=== PATIENT | female | born 1940 | race Caucasian/White ===

== ENCOUNTER 2021-04-30 11:18 | Emergency (ER) | payer MEDICARE, SELFPAY ==
[2021-04-30 11:25] VITALS: BP 195/84; PULSE 64; RESP 18; TEMP 36.9; O2SAT 98; BMI 30.2
--- NOTE | 2021-04-30 12:09 | ECG_ITS ---
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 Measurements Intervals [place] Rate: 61 P: 6 CT: 156 QRS: 23 QRSD: 87 T: 28 QT: 398 QTc: 402 Interpretive Statements SINUS RHYTHM Poor R wave progression Compared to ECG 09/30/2017 09:28:50 Sinus bradycardia no longer present ST (T wave) deviation no longer present Electronically Signed On 05-01-2021 23:47:46 CDT by Shannan Colin M.D. [id number]
--- NOTE | 2021-04-30 12:10 | ED_ITS ---
HPI - General Adult General: Chief complaint: General Medical Stated complaint: HIGH B/P Time Seen by Provider: 04/30/21 11:50 Source: patient and family (son) Mode of arrival: ambulatory Limitations: altered mental status (chronic dementia) History of Present Illness: HPI narrative: Patient is a nice 80-year-old female who presents to ED today along with her son for complaints of elevated blood pressure. Son states yesterday evening after feeding cows the patient appeared flushed so took her blood pressure and states it read 190s systolic. He states he rechecked it this morning and readings were 180s. Patient states last night she did have a headache and some visual changes. She reports a very mild headache currently. States she feels fatigued. Denies chest pain, shortness of breath, difficulty breathing. She takes lisinopril 20 mg daily for HTN. Son also states he feels like her legs are swollen. Onset (ago): hour(s) Associated symptoms: Reports headache(s); Deny chest pain, dyspnea, malaise, nausea, rash, palpitations, syncope or vomiting Review of Systems Const: Reports: fatigue; Denies: fever(s), chills, body aches, change in appetite, change in weight or malaise Eyes: Reports: blurry vision (yesterday-gone now); Denies: photophobia, eye discharge, floaters or seeing flashes Card: Denies: chest pain, palpitations, irregular heart rhythm, edema, lightheadedness, syncope or pre-syncope Resp: Denies: dyspnea GI: Denies: abdominal pain, nausea, vomiting or diarrhea Musc: Denies: neck pain or back pain Skin/Breast: Denies: rash Neuro: Reports: headache(s); Denies: numbness in extremities, weakness in extremities or sensory changes Physical Exam Const: COMMON NORMALS: no acute distress, average body habitus, no limitations, healthy appearing, alert and well nourished GENERAL APPEARANCE: cooperative ORIENTATION/CONSCIOUSNESS: Yes awake, Yes oriented to person and Yes oriented to place OTHER: at mental baseline per son HENMT: COMMON NORMALS: normocephalic and atraumatic HEAD & SCALP: normocephalic and atraumatic Eye: COMMON NORMALS: Equal, round and reactive pupils present and EOMs intact bilaterally GENERAL EYE: appearance normal, both eyes and all related structures and normal light reflex PUPIL: Yes Equal, round and reactive pupils present DIRECT OPHTHALMOSCOPY: Yes normal light reflex Neck/C-Spine: COMMON NORMALS: full ROM CAROTIDS: No bruit Resp: COMMON NORMALS: normal respiratory effort and clear to auscultation bilaterally AUSCULTATION: clear to auscultation bilaterally Cardio: COMMON NORMALS: regular rate and regular rhythm RATE: regular rate RHYTHM: regular rhythm GI: COMMON NORMALS: Normal to inspection, nondistended, normoactive bowel sounds present, Soft to palpation, non-tender, No hepatosplenomegaly present and no masses PALPATION: Yes Soft to palpation and Yes No hepatosplenomegaly present Extremity: COMMON NORMALS: capillary refill normal, no joint enlargement and no calf tenderness NARRATIVE EXTREMITY EXAM: slight bilateral non-pitting LE edema GENERAL: Yes normal exam except as noted Neuro: GERBER COMA SCALE: document GCS findings Gerber coma scale eye opening: Spontaneous [place] coma scale verbal response: Orientated Gerber coma scale motor response: Obey commands Gerber coma scale total score: 15 COMMON NORMALS: CN's II-XII intact bilaterally, moves all extremities, no focal motor deficits and no sensory deficits noted SENSORIUM/ORIENTATION: Yes alert, Yes oriented to person and Yes oriented to place Skin: COMMON NORMALS: no rashes or lesions noted GENERAL SKIN EXAM: no rashes or lesions noted Course Vital Signs: Vital signs: Vital Signs Temperature 98.5 F 04/30/21 11:25 Pulse Rate 60 04/30/21 12:32 Respiratory Rate 18 04/30/21 12:32 Blood Pressure 175/79 04/30/21 13:32 Pulse Oximetry 100 04/30/21 12:32 MDM - General Adult MDM Narrative: Medical decision making narrative: Patient's work-up here including CBC, CMP, BNP troponin, EKG, CT head is reassuring. Will increase patient's lisinopril to 30 mg and recommend blood pressure log at home to discuss with primary care provider within the next week. Return to ED precautions given. Lab Data: Labs: Lab Results 04/30/21 04/30/21 04/30/21 Range/Units 12:38 12:38 12:38 WBC 7.7 (4.0-10.0) 10^3/ uL RBC 4.13 (4.1-5.3) 10^6/u L Hgb 13.7 (11.5-15.3) g/dL Hct 40.5 (37.0-47.0) % MCV 98.1 (81-99) fl MCH 33.2 (28.0-34.0) pg MCHC 33.8 (30.0-36.0) g/dL RDW 12.0 L (12.1-15.1) % Plt Count 243 (130-400) 10^3/c mm MPV 9.8 (7.4-10.4) fL Neut % (Auto) 57.4 % Lymph % (Auto) 27.3 % Benzie % (Auto) 10.4 % Eos % (Auto) 3.8 % Baso % (Auto) 0.8 % Neut # (Auto) 4.43 (1.8-7.7) 10^3/u L Lymph # (Auto) 2.1 (0.8-4.8) 10^3/u L Benzie # (Auto) 0.8 (0.2-0.9) 10^3/u L Eos # (Auto) 0.3 (0.0-0.8) 10^3/u L Baso # (Auto) 0.1 (0.0-0.1) 10^3/u L Nucleated RBC % (a uto) 0 % Nucleated RBCs # 0.0 /100WBC Sodium 140 (136-145) mmol/L Potassium 4.8 (3.5-5.1) mmol/L Chloride 106 (98-107) mmol/L Carbon Dioxide 28 (22-29) mmol/L Anion Gap 10.8 (5-19) BUN 17 (8-23) mg/dL Creatinine 0.8 (0.5-0.9) mg/dL GFR Calculation Not Reportable Glucose 88 (65-115) mg/dL Calculated Osmolal ity 291 (285-295) mOsm/k g Calcium 9.4 (8.5-10.5) mg/dL Total Bilirubin 0.3 (0.15-1.2) mg/dL AST 16 (0-32) U/L ALT 16 (0-33) U/L Alkaline Phosphata se 85 (35-105) IU/L Troponin T Baselin e 9 (0-10) ng/L NT-Pro-B Natriuret Pep 180 (0-450) pg/mL Total Protein 6.2 L (6.6-8.7) g/dL Albumin 3.8 (3.5-5.2) g/dL Globulin 2.4 (1.3-4.6) g/dL Imaging Data^: CT Head: Radiologist's impression: [address] [place] [address] CT Scan Report Signed Patient: Joanna Wilson Unit #: [id number] : 1940 Age/Sex: 80 / F ADM Date: 04/30/21 Loc: ER Room/Bed: Attending Dr: Ordering Provider/Ordering MD: Sherlyn Anders Date of Service: 04/30/21 Procedure(s): CT head wo con* [id number] Accession Number(s): [id number] Report Number: [id number] PROCEDURE INFORMATION: Exam: CT Head Without Contrast Exam date and time: 04/30/2021 12:09 PM Age: 80 years old Clinical indication: Pain; Headache; Additional info: Headache, HTN TECHNIQUE: Imaging protocol: Computed tomography of the head without contrast. Radiation optimization: All CT scans at this facility use at least one of these dose optimization techniques: automated exposure control; mA and/or kV adjustment per patient size (includes targeted exams where dose is matched to clinical indication); or iterative reconstruction. COMPARISON: No relevant prior studies available. RADIATION DOSE METRICS: Total DLP (mGy-cm): 834.2 FINDINGS: Brain: There is diffuse cerebral atrophy present, consistent with this patient's age. Periventricular and subcortical white matter low densities are present which at this age likely represent microvascular ischemic change. No evidence for large acute ischemic infarction. Please note acute ischemia can be occult by head CT. Cerebral ventricles: No ventriculomegaly. Paranasal sinuses: Visualized sinuses are unremarkable. No fluid levels. Mastoid air cells: Visualized mastoid air cells are well aerated. Vasculature: Calcified plaque is present within the carotid siphons. Bones/joints: Unremarkable. No acute fracture. Soft tissues: Unremarkable. CT/CT head wo con* [id number] IMPRESSION: There are senescent changes of the brain as described above. No evidence for large acute ischemic infarction or acute intracranial injury. Radiation Dose CTDIVOL = (mGy): DLP = 834.2 (mGy-cm) Dictated By: Sabrina Wesley MD Signed By: Sabrina Wesley MD Signed Date/Time: 04/30/21 1331 DD/ 1329 EKG Data^: EKG 1: EKG interpretation date: 04/30/21 EKG interpretation time: 12:47 Interpretation: Sinus rhythm Rate [address] elevation or depression changes noted Computer generated interpretation: Head CT 04/30/21 12:09 IMPRESSION: There are senescent changes of the brain as described above. No evidence for large acute ischemic infarction or acute intracranial injury. Radiation Dose CTDIVOL = (mGy): DLP = 834.2 (mGy-cm) Discharge Plan Discharge Patient Disposition: Home Clinical Impression: HTN (hypertension) Qualifiers: Hypertension type: essential hypertension Qualified Code(s): I10 - Essential (primary) hypertension Condition: Stable Prescriptions: New lisinopril 30 mg tablet 30 mg PO DAILY Qty: 30 RF: 0 Discharge Orders: Discharge ED (Routine); Ordered 04/30/21 Ordered By: Sherlyn Anders Referrals: Twan Clark MD [Primary Care Provider] - Patient Instructions: Hypertension, Hypertension (ED) Activity Restrictions/Additional Instructions: As we discussed we will increase patient's blood pressure medication to 30 mg daily (this prescription has been provided to you). Do not take this along with the 20 mg tablets that you have. Keep a blood pressure log of readings twice daily and discuss with primary care in the next 1-2 weeks. She may return to the emergency department for severe headache, visual changes, chest pain, shortness of breath, difficulty breathing, or any other concerns you may have. Coding Level of Care Code ED Podiatrist Orthopedic for Jennifer Walton
[2021-04-30 12:32] VITALS: BP 205/83; PULSE 60; RESP 18; O2SAT 100
[2021-04-30 12:54] LABS: Basophils # 0.1 10^3/uL (0.0-0.1); Basophils % 0.8 %; Eosinophils # 0.3 10^3/uL (0.0-0.8); Eosinophils % 3.8 %; Hematocrit 40.5 % (37.0-47.0); Hemoglobin 13.7 g/dL (11.5-15.3); Lymphocytes # 2.1 10^3/uL (0.8-4.8); Lymphocytes % 27.3 %; Mean Corpuscular HGB Conc 33.8 g/dL (30.0-36.0); Mean Corpuscular Hemoglobin 33.2 pg (28.0-34.0); Mean Corpuscular Volume 98.1 fl (81-99); Mean Platelet Volume 9.8 fL (7.4-10.4); Monocytes # 0.8 10^3/uL (0.2-0.9); Monocytes % 10.4 %; Neutrophils # 4.43 10^3/uL (1.8-7.7); Neutrophils % 57.4 %; Nucleated Red Blood Cells % 0 %; Platelet Count 243 10^3/cmm (130-400); Red Blood Count 4.13 10^6/uL (4.1-5.3); White Blood Count 7.7 10^3/uL (4.0-10.0)
[2021-04-30 13:00] VITALS: BP 201/88; PULSE 63; RESP 18; O2SAT 100
[2021-04-30 13:16] LABS: Troponin(5th) Baseline 9 ng/L (0-10)
[2021-04-30 13:24] LABS: Alanine Aminotransferase 16 U/L (0-33); Albumin Level 3.8 g/dL (3.5-5.2); Alkaline Phosphatase 85 IU/L (35-105); Anion Gap 10.8 (5-19); Aspartate Amino Transferase 16 U/L (0-32); Blood Urea Nitrogen 17 mg/dL (8-23); Calcium 9.4 mg/dL (8.5-10.5); Carbon Dioxide 28 mmol/L (22-29); Chloride 106 mmol/L (98-107); Globulin 2.4 g/dL (1.3-4.6); Glucose 88 mg/dL (65-115); NT Pro B Type Natriuretic Pept 180 pg/mL (0-450); Osmolality Calculated 291 mOsm/kg (285-295); Potassium 4.8 mmol/L (3.5-5.1); Sodium 140 mmol/L (136-145); Total Bilirubin 0.3 mg/dL (0.15-1.2); Total Protein 6.2 g/dL (6.6-8.7)
[2021-04-30 13:32] VITALS: BP 175/79
[2021-04-30] MEDS: cloNIDine 0.1 mg Tablet PO (13:32)
[2021-04-30 14:00] VITALS: BP 166/89; PULSE 59; RESP 19; O2SAT 99
== END 2021-04-30 14:35 | disposition home or self-care (01) ==
PROVIDERS: Emergency Provider Physician Assistant; PCP Family Medicine
DX: I10 Essential (primary) hypertension (principal)
CPT/HCPCS: 70450; 80053; 83880; 84484; 85025; 93005; 99284

== ENCOUNTER 2021-12-02 18:21 | Emergency (ER) | payer MEDICARE, SELFPAY ==
[2021-12-02 18:32] VITALS: BP 198/86; PULSE 70; RESP 18; TEMP 36.3; O2SAT 99; BMI 30.9
--- NOTE | 2021-12-02 18:45 | CTR_ITS ---
PROCEDURE INFORMATION: Exam: CT Cervical Spine Without Contrast Exam date and time: 12/02/2021 6:58 PM Age: 81 years old Clinical indication: Injury or trauma; Fall; Blunt trauma TECHNIQUE: Imaging protocol: Computed tomography images of the cervical spine without contrast. Radiation optimization: All CT scans at this facility use at least one of these dose optimization techniques: automated exposure control; mA and/or kV adjustment per patient size (includes targeted exams where dose is matched to clinical indication); or iterative reconstruction. COMPARISON: CT head wo con* [id number] 12/02/2021 6:56 PM RADIATION DOSE METRICS: Total DLP (mGy-cm): 561.74 FINDINGS: Bones/joints: No acute fracture. No malalignment. Discs/Spinal canal/Neural foramina: No significant disc protrusion. No severe spinal canal stenosis. No significant neural foraminal narrowing. Thyroid: 2.3 cm right thyroid nodule. Lungs: Lung apices are normal. Soft tissues: Unremarkable. CT/CT cervical spin wo con* [id number] IMPRESSION: 1. No acute osseous abnormality of the cervical spine. 2. 2.3 cm right thyroid nodule noted. ACR recommendations given below. COMMENTS: Consistent with the [employer]'s Incidental Findings Committee white paper (J Am Jolly Radiol 2015): In patients aged 35 years and older with an incidental thyroid nodule equal to or greater than 1.[address], MRI or extrathyroidal US, further evaluation with dedicated thyroid US is recommended for patients with normal life expectancy and without comorbidities. For smaller nodules without suspicious features, no further evaluation or follow up is recommended.
--- NOTE | 2021-12-02 18:45 | CTR_ITS ---
PROCEDURE INFORMATION: Exam: CT Head Without Contrast Exam date and time: 12/02/2021 6:56 PM Age: 81 years old Clinical indication: Injury or trauma; Fall; Blunt trauma (contusions or hematomas); Without loss of consciousness; Additional info: Fall, lac to back of head. TECHNIQUE: Imaging protocol: Computed tomography of the head without contrast. Radiation optimization: All CT scans at this facility use at least one of these dose optimization techniques: automated exposure control; mA and/or kV adjustment per patient size (includes targeted exams where dose is matched to clinical indication); or iterative reconstruction. COMPARISON: CT head wo con* [id number] 04/30/2021 12:58 PM RADIATION DOSE METRICS: Total DLP (mGy-cm): 958.32 FINDINGS: Brain: No hemorrhage. Mild diffuse cerebral atrophy and sequela of chronic small vessel ischemic disease. No mass effect. Cerebral ventricles: No ventriculomegaly. Paranasal sinuses: Visualized sinuses are unremarkable. No fluid levels. Mastoid air cells: Visualized mastoid air cells are well aerated. Bones/joints: Unremarkable. No acute fracture. Soft tissues: Laceration along the left posterior scalp. CT/CT head wo con* [id number] IMPRESSION: No acute intracranial abnormality.
--- NOTE | 2021-12-02 18:52 | ED_ITS ---
HPI - Fall General: Chief Complaint: Fall Stated Complaint: Injury Head Time Seen by Provider: 12/02/21 18:31 Source: patient Mode of arrival: ambulatory Limitations: no limitations History of Present Illness: 81-year-old female states that she is walking upstairs roughly an hour ago from her basement and was wearing flip-flops and slipped and fell backwards she hit her head on the floor has a small laceration to the posterior scalp. She denies loss conscious states she does have a headache and some slight neck pain denies any other injuries has been ambulatory since the event. She is on aspirin at home. Associated symptoms-after fall: Reports headache(s) and neck pain; Denies abdominal pain or chest pain Review of Systems Const: Denies: fever(s), chills, body aches or change in appetite Eyes: Denies: blurry vision or eye discomfort ENMT: Denies: throat pain or dental pain Card: Denies: chest pain Resp: Denies: dyspnea GI: Denies: abdominal pain, nausea, vomiting or diarrhea : Denies: dysuria Musc: Reports: neck pain Skin/Breast: Denies: rash Neuro: Reports: headache(s) Psych: Denies: depression Roman/Lymph: Denies: easy bruising All/Imm: Denies: urticaria PFSH ED PFSH: Medical History (Updated 12/02/21 @ 19:25 by Edy Melgar MD) Hypertension Social History Substance/Drug Use: never Physical Exam Const: COMMON NORMALS: no acute distress, patient oriented x3 and healthy morena earing HENMT: COMMON NORMALS: normocephalic; head/scalp not atraumatic (1cm lac posterior scalp) HEAD & SCALP: normoce phalic; not atraumatic (1cm lac posterior scalp) Eye: COMMON NORMALS: Equal, round and reactive pupils present and EOMs intact bilaterally PUPIL: Yes Equal, round and reactive pupils present Neck/C-Spine: COMMON NORMALS: full ROM and supple Chest: COMMONS NORMALS: normal inspection of the chest and normal palpation of entire chest wall Resp: COMMON NORMALS: normal respiratory effort, No retractions, No use of accessory muscles and clear to auscultation bilaterally AUSCULTATION: clear to auscultation bilaterally Cardio: COMMON NORMALS: regular rate, regular rhythm and No murmurs present (Cardio) RATE: regular rate RHYTHM: regular rhythm GI: COMMON NORMALS: Normal to inspection, nondistended, normoactive bowel sounds present, Soft to palpation, non-tender and no masses PALPATION: Yes Soft to palpation Extremity: COMMON NORMALS: normal to inspection and full ROM Neuro: COMMON NORMALS: patient oriented x3, moves all extremities and no focal motor deficits Psych: COMMON NORMALS: mental status grossly normal, Normal thought process present and cooperative THOUGHT PROCESS: Normal thought process present Skin: COMMON NORMALS: no rashes or lesions noted and no wounds GENERAL SKIN EXAM: no rashes or lesions noted Procedures Laceration Laceration 1: Site: scalp Size (cm): 1 Description: linear Depth: simple, single layer Local Anesthetic: lidocaine 1% Amount of anesthesia used (mL): 3 Pre-repair: wound explored and irrigated extensively Skin layer closed with: other (staple 1) Course Vital Signs: Vital signs: Vital Signs Temperature 97.4 F L 12/02/21 18:32 Pulse Rate 70 12/02/21 18:32 Respiratory Rate 18 12/02/21 18:32 Blood Pressure 198/86 12/02/21 18:32 Pulse Oximetry 99 12/02/21 18:32 MDM - Fall Medical Decision Making Patient presents here with a posterior scalp laceration after a fall. Head CT along with C-spine CT here both normal. She is stable for discharge she did have. Scalp laceration repaired with robb she is to return in 7 days for removal she is to follow-up with PCP and return if worsening. Lab Data Radiology Impressions Cervical Spine CT 12/02/21 18:45 IMPRESSION: 1. No acute osseous abnormality of the cervical spine. 2. 2.3 cm right thyroid nodule noted. ACR recommendations given below. COMMENTS: Consistent with the [employer]'s Incidental Findings Committee white paper (J Am Jolly Radiol 2015): In patients aged 35 years and older with an incidental thyroid nodule equal to or greater than 1.[address], MRI or extrathyroidal US, further evaluation with dedicated thyroid US is recommended for patients with normal life expectancy and without comorbidities. For smaller nodules without suspicious features, no further evaluation or follow up is recommended. Head CT 12/02/21 18:45 IMPRESSION: No acute intracranial abnormality. Discharge Plan Discharge Patient Disposition: Home Clinical Impression: Laceration of head Qualifiers: Encounter type: initial encounter Location of open wound of head: scalp Foreign body presence: without foreign body Qualified Code(s): S01.01XA - Laceration without foreign body of scalp, initial encounter Fall Qualifiers: Encounter type: initial encounter Qualified Code(s): W19.XXXA - Unspecified fall, initial encounter Prescriptions: No Action lisinopril 30 mg tablet 30 mg PO DAILY Qty: 30 0RF Discharge Orders: Discharge ED (Routine); Ordered 12/02/21 Ordered By: Edy Melgar Referrals: Twan Clark MD [Primary Care Provider] - Discharge Diet: Advance as tolerated Discharge Activity: Resume usual activity Patient Instructions: Head Laceration (ED) Activity Restrictions/Additional Instructions: staple removal in 7 days Coding Level of Care Code ED Stationary Equipment Mechanic for Jennifer Fwgay Exam Comprehensive
[2021-12-02 19:00] VITALS: BP 166/121; PULSE 74; RESP 18; O2SAT 98
[2021-12-02 19:30] VITALS: BP 185/100; PULSE 73; RESP 20; O2SAT 98
[2021-12-02 20:04] VITALS: BP 198/85; PULSE 68; RESP 20; O2SAT 98
== END 2021-12-02 20:00 | disposition home or self-care (01) ==
PROVIDERS: Emergency Provider Emergency Medicine; PCP Family Medicine
DX: S01.01XA Laceration without foreign body of scalp, initial encounter (principal); I10 Essential (primary) hypertension; W01.0XXA Fall on same level from slipping, tripping and stumbling without subsequent striking against object, initial encounter
CPT/HCPCS: 12001; 70450; 72125; 99283

== ENCOUNTER → 2022-08-28 09:14 | Outpatient (BNVA) | payer MEDICARE, SELFPAY | PROVIDERS: PCP Family Medicine; Visit Provider Family Medicine | DX: F03.90 Unspecified dementia, unspecified severity, without behavioral disturbance, psychotic disturbance, mood disturbance, and anxiety (principal); I10 Essential (primary) hypertension | CPT/HCPCS: 80053; 80061; 82607; 84443 ==

== ENCOUNTER → 2022-11-30 11:40 | Outpatient (BNVA) | payer MEDICARE, SELFPAY | PROVIDERS: PCP Family Medicine; Visit Provider Family Medicine | DX: R60.9 Edema, unspecified (principal); I10 Essential (primary) hypertension; F03.90 Unspecified dementia, unspecified severity, without behavioral disturbance, psychotic disturbance, mood disturbance, and anxiety | CPT/HCPCS: 80048; 83880 ==

== ENCOUNTER 2023-02-26 08:57 | Emergency (ER) | payer MEDICARE, SELFPAY ==
[2023-02-26] VITALS (11 sets, daily range): BP systolic 157–205; BP diastolic 94–95; PULSE 68–87; RESP 15–20; TEMP 36.5; O2SAT 94–96
--- NOTE | 2023-02-26 09:00 | ED_ITS ---
HPI - Seizure General: Chief Complaint: Altered Mental Status Stated Complaint: poss seizures Time Seen by Provider: 02/26/23 08:58 Source: patient Mode of arrival: ambulatory History of Present Illness: HPI Narrative: 82-year-old female presents emergency room with her daughter. Patient has mild dementia and lives in assisted living she fell 1 week ago is a bruise on her right lower leg she hit her head at the time there is no reported loss consciousness she seemed unaffected so she was not evaluated. She is not on any anticoagulants she does take aspirin daily. Last 2 hours she has not been re sponding well she is fallen off of her normal baseline for mental status and interaction. She has had some shaking particularly in the right side no real clear seizure-like activity family is questioning she might have a seizure. There is no known history of seizures no previous cancers. Patient has had falls in the past and been evaluated in the emergency room. She has no history of heart disease she does have a history of hypertension. MD complaint: possible seizure Onset (ago): hour(s) (2) Trauma: Yes Seizure History: No Place: Assisted living Possible Precipitating Event: head injury Associated symptoms: Deny chest pain, chills, confusion, cough, fever(s), anorexia, malaise, rash, short of breath, syncope or weakness Treatments prior to arrival: none Review of Systems General: Reports: Other (Review of systems per daughter at the bedside) Const: Denies: fever(s), chills or malaise Card: Denies: chest pain or syncope Resp: Denies: dyspnea GI: Denies: abdominal pain : Denies: dysuria, urinary frequency or urinary urgency Neuro: Denies: confusion [facility] ED PFSH: Medical History Hypertension Family History Father Cancer Hyperlipidemia Hypertension Mother Dementia Diabetes Hyperlipidemia Hypertension Other CAD (coronary artery disease) Denies family history of Chronic kidney disease (CKD) Suicide Bleeding disorder Lung disease Stroke Social History Smoking and tobacco status: former smoker Alcohol intake: never Substance/Drug Use: never Adopted: No Household members: other Details: [facility] Housing: Assisted Living Facility Marital status: / Number of children: 3 Number of grandchildren: 9 Highest education level completed: High School Graduate Current occupational status: disabled Current gender identity: Female Physical Exam Const: GENERAL APPEARANCE: cooperative and comfortable ORIENTATION/CONSCIOUSNESS: Yes awake HENMT: COMMON NORMALS: normocephalic, atraumatic and hearing grossly normal bilaterally HEAD & SCALP: normocephalic and atraumatic Resp: COMMON NORMALS: normal respiratory effort, No retractions, No use of accessory muscles and clear to auscultation bilaterally AUSCULTATION: clear to auscultation bilaterally Cardio: COMMON NORMALS: regular rate, regular rhythm and No murmurs present (Cardio) RATE: regular rate RHYTHM: regular rhythm GI: COMMON NORMALS: Soft to palpation and No hepatosplenomegaly present AUSCULTATION: Yes normoactive bowel sounds PALPATION: Yes Soft to palpation, No Tenderness to palpation present (GI), No Guarding due to palpation present (GI) and Yes No hepatosplenomegaly present Extremity: COMMON NORMALS: capillary refill normal, no clubbing, cyanosis or edema, no calf tenderness and no pedal edema OTHER: Resolving ecchymosis appears at least 4 to 5 days old on the anterior tibia on the right no deformity no laceration Skin: COMMON NORMALS: no rashes or lesions noted GENERAL SKIN EXAM: no rashes or lesions noted Course Vital Signs: Vital signs: Vital Signs Temperature 97.7 F 02/26/23 09:08 Pulse Rate 69 02/26/23 11:41 Respiratory Rate 15 02/26/23 11:41 Blood Pressure 157/94 02/26/23 11:41 Pulse Oximetry 95 02/26/23 11:41 Oxygen Delivery Me thod Room Air 02/26/23 09:17 MDM - Seizure MDM Narrative Medical decision making narrative: No evidence of seizures. She does have a looks like is mild infiltrate at the right base. At the time work-up was completed she is sitting upright doing much better discussed with the family. No other findings are noted she has some mild hyponatremia but I do not think it is enough to cause a degree of symptoms she is having. We will discharge patient home on oral antibiotics have her follow- up with her primary care doctor within the week. Return if has further problems. Medical Records Attestation: I reviewed the patient's medical records. Lab Data Attestation: I reviewed the patient's lab results. 02/26/23 09:15 02/26/23 09:15 Labs: Radiology Impressions Head CT 02/26/23 09:20 IMPRESSION: 1. No acute intracranial hemorrhage or edema. 2. Mild cerebral and cerebellar atrophy and small vessel ischemic disease. Chest X-Ray 02/26/23 10:38 IMPRESSION: No acute cardiopulmonary abnormality. Laboratory Results WBC 9.0 10^3/uL (4.0-10.0) 02/26/23 09:15 RBC 4.33 10^6/uL (4.1-5.3) 02/26/23 09:15 Hgb 14.1 g/dL (11.5-15.3) 02/26/23 09:15 Hct 41.9 % (37.0-47.0) 02/26/23 09:15 MCV 96.8 fl (81-99) 02/26/23 09:15 MCH 32.6 pg (28.0-34.0) 02/26/23 09:15 MCHC 33.7 g/dL (30.0-36.0) 02/26/23 09:15 RDW 11.6 % (12.1-15.1) L 02/26/23 09:15 Plt Count 298 10^3/cmm (130-400) 02/26/23 09:15 MPV 8.4 fL (7.4-10.4) 02/26/23 09:15 Neut % (Auto) 68.9 % 02/26/23 09:15 Lymph % (Auto) 22.1 % 02/26/23 09:15 [place] % (Auto) 6.3 % 02/26/23 09:15 Eos % (Auto) 1.7 % 02/26/23 09:15 Baso % (Auto) 0.4 % 02/26/23 09:15 Neut # (Auto) 6.23 10^3/uL (1.8-7.7) 02/26/23 09:15 Lymph # (Auto) 2.0 10^3/uL (0.8-4.8) 02/26/23 09:15 [place] # (Auto) 0.6 10^3/uL (0.2-0.9) 02/26/23 09:15 Eos # (Auto) 0.2 10^3/uL (0.0-0.8) 02/26/23 09:15 Baso # (Auto) 0.0 10^3/uL (0.0-0.1) 02/26/23 09:15 Nucleated RBC % (auto) 0 % 02/26/23 09:15 Nucleated RBCs # 0.0 /100WBC 02/26/23 09:15 Sodium 129 mmol/L (136-145) L 02/26/23 09:15 Potassium 4.0 mmol/L (3.5-5.1) 02/26/23 09:15 Chloride 91 mmol/L (98-107) L 02/26/23 09:15 Carbon Dioxide 22 mmol/L (22-29) 02/26/23 09:15 Anion Gap 20.0 (5-19) H 02/26/23 09:15 BUN 13 mg/dL (8-23) 02/26/23 09:15 Creatinine 0.8 mg/dL (0.5-0.9) 02/26/23 09:15 GFR Calculation Not Reportable 02/26/23 09:15 Glucose 170 mg/dL (65-115) H 02/26/23 09:15 Calculated Osmolality 272 mOsm/kg (285-295) L 02/26/23 09:15 Calcium 9.7 mg/dL (8.5-10.5) 02/26/23 09:15 Magnesium 1.9 mg/dL (1.7-2.3) 02/26/23 09:15 Total Bilirubin 0.4 mg/dL (0.15-1.2) 02/26/23 09:15 AST 13 U/L (0-32) 02/26/23 09:15 ALT 18 U/L (0-33) 02/26/23 09:15 Alkaline Phosphatase 69 U/L (35-105) 02/26/23 09:15 Creatine Kinase 35 U/L (26-192) 02/26/23 09:15 Total Protein 7.6 g/dL (6.6-8.7) 02/26/23 09:15 Albumin 4.4 g/dL (3.5-5.2) 02/26/23 09:15 Globulin 3.2 g/dL (1.3-4.6) 02/26/23 09:15 Urine Color Light yellow (Yellow) 02/26/23 09:24 Urine Appearance Clear (CLEAR) 02/26/23 09:24 Urine pH 6 (5-7) 02/26/23 09:24 Ur Specific [place] 1.015 (1.005-1.030) 02/26/23 09:24 Urine Protein Neg (Negative) 02/26/23 09:24 Urine Glucose (UA) Norm (Normal) 02/26/23 09:24 Urine Ketones Negative (Negative) 02/26/23 09:24 Urine Blood Neg (Negative) 02/26/23 09:24 Urine Nitrate Negative (Negative) 02/26/23 09:24 Urine Bilirubin Neg (Negative) 02/26/23 09:24 Urine Urobilinogen Norm mg/dL (Negative) 02/26/23 09:24 Ur Leukocyte Esterase Negative (Negative) 02/26/23 09:24 Discharge Plan Discharge Patient Disposition: Home Clinical Impression: Right lower lobe pneumonia, Hyponatremia Condition: Stable Prescriptions: New levofloxacin 500 mg tablet 500 mg PO DAILY 7 Days Qty: 7 0RF No Action (DME) assisted living admission See Rx Instructions .Route .MEDSUPPLY Qty: 1 0RF Rx Instructions: admit to assisted living; admit to [facility] donepezil 10 mg tablet PO escitalopram oxalate 10 mg tablet PO melatonin 5 mg tablet 5 mg PO DAILY Qty: 30 0RF Rx Instructions: Saturday, and Saturday diphenhydramine-acetaminophen [Tylenol PM Extra Strength] 25-500 mg tablet 2 tab PO BEDTIME Qty: 60 0RF aspirin [Adult Low Dose Aspirin] 81 mg tablet,delayed release (DR/EC) 81 mg PO DAILY Qty: 90 0RF acetaminophen [Tylenol Extra Strength] 500 mg tablet 1,000 mg PO QAM Qty: 60 0RF L-theanine 500 mg See Rx Instructions .ROUTE .COMPLEX Qty: 90 0RF Rx Instructions: 1 po qhs on MWF; lisinopril 30 mg tablet 30 mg PO DAILY Qty: 30 5RF furosemide 20 mg tablet 20 mg PO DAILY Qty: 30 5RF Discharge Orders: Discharge ED (Routine); Ordered 02/26/23 Ordered By: Grady Blanchard Referrals: Poli Lara DO [Primary Care Provider] - Discharge Diet: Usual diet Discharge Activity: Resume usual activity Patient Instructions: Hyponatremia (ED), Dementia (ED), Pneumonia (ED) Activity Restrictions/Additional Instructions: Follow-up in 10 to 14 days for repeat chest x-ray with your primary care doctor. If your symptoms are improving return sooner. Coding Level of Care Code ED Shot Polisher And Inspector for Jennifer Walton
[2023-02-26 09:20] LABS: Basophils % 0.4 %; Eosinophils # 0.2 10^3/uL (0.0-0.8); Eosinophils % 1.7 %; Hematocrit 41.9 % (37.0-47.0); Hemoglobin 14.1 g/dL (11.5-15.3); Lymphocytes % 22.1 %; Mean Corpuscular HGB Conc 33.7 g/dL (30.0-36.0); Mean Corpuscular Hemoglobin 32.6 pg (28.0-34.0); Mean Corpuscular Volume 96.8 fl (81-99); Mean Platelet Volume 8.4 fL (7.4-10.4); Monocytes # 0.6 10^3/uL (0.2-0.9); Monocytes % 6.3 %; Neutrophils # 6.23 10^3/uL (1.8-7.7); Neutrophils % 68.9 %; Nucleated Red Blood Cells % 0 %; Platelet Count 298 10^3/cmm (130-400); Red Blood Count 4.33 10^6/uL (4.1-5.3); Red Cell Distribution Width 11.6 % (12.1-15.1)
--- NOTE | 2023-02-26 09:20 | CT_ITS ---
WS: [id number] CT HEAD NONCONTRAST HISTORY: trauma TECHNIQUE: Contiguous axial imaging performed through the brain in 2.5 mm imaging. Bone and soft tiss ue windows. Sagittal and coronal reformats reviewed. All CT scans at [facility] use at least one of these dose optimization techniques: automated exposure control; mA and/or kV adjustment per pa tient size (includes targeted exams where dose is matched to clinical indication); or iterative recon struction. DLP: 1281.12 mGy.cm COMPARISON: 12/02/2021 No acute intracranial hemorrhage, midline shift or mass effect. Mild atrophy and small vessel ischemic disease. Small lacunar infarcts in the external capsules. No l arge territory infarct. Mild cerebellar and cerebral atrophy. Ventricles: Normal size with no hydrocephalus. Paranasal sinuses: As visualized are clear. Mastoid air cells: Well pneumatized. Calvarium and scalp: Skull is intact with no soft tissue edema or swelling. CT/CT head wo con* [id number] IMPRESSION: 1. No acute intracranial hemorrhage or edema. 2. Mild cerebral and cerebellar atrophy and small vessel ischemic disease.
[2023-02-26 09:46] LABS: Alanine Aminotransferase 18 U/L (0-33); Albumin Level 4.4 g/dL (3.5-5.2); Alkaline Phosphatase 69 U/L (35-105); Aspartate Amino Transferase 13 U/L (0-32); Blood Urea Nitrogen 13 mg/dL (8-23); Calcium 9.7 mg/dL (8.5-10.5); Carbon Dioxide 22 mmol/L (22-29); Chloride 91 mmol/L (98-107); Creatine Phosphokinase 35 U/L (26-192); Creatinine Clr Calc Pharmacy 52.9705; Globulin 3.2 g/dL (1.3-4.6); Glucose 170 mg/dL (65-115); Magnesium 1.9 mg/dL (1.7-2.3); Osmolality Calculated 272 mOsm/kg (285-295); Sodium 129 mmol/L (136-145); Total Bilirubin 0.4 mg/dL (0.15-1.2); Total Protein 7.6 g/dL (6.6-8.7)
[2023-02-26 09:46] LABS: Add Urine Microscopic? NO; Charge for UA Resulting for Rev
[2023-02-26 09:50] LABS: Bilirubin Urine Neg (Negative); Blood Urine Neg (Negative); Glucose Urine UA Norm (Normal); Ketones Urine Negative (Negative); Leukocyte Esterase Urine Negative (Negative); Nitrate Urine Negative (Negative); Protein Urine Neg (Negative); Specific Gravity, Urine 1.015 (1.005-1.030); Urine Appearance Clear (CLEAR); Urine Color Light yellow (Yellow); Urobilinogen Urine Norm (Negative); pH Urine 6 (5-7)
[2023-02-26] MEDS: sodium chloride 0.9% 500 ML 999 ML IV (10:15)
--- NOTE | 2023-02-26 10:38 | XRR_ITS ---
PROCEDURE INFORMATION: Exam: XR Chest Exam date and time: 02/26/2023 10:47 AM Age: 82 years old Clinical indication: Cough and dyspnea; Additional info: Dyspnea/cough TECHNIQUE: Imaging protocol: Radiologic exam of the chest. Views: 1 view. COMPARISON: CT chest w con* [id number] 09/30/2017 9:51 AM FINDINGS: Lungs: Large calcified granuloma in the mid right lung appears unchanged from 09/30/2017. No focal airspace disease. Pleural spaces: Unremarkable. No pleural effusion. No pneumothorax. Heart/Mediastinum: Unremarkable. No cardiomegaly. Bones/joints: Unremarkable. XR/XR chest 1V portable [id number] IMPRESSION: No acute cardiopulmonary abnormality.
== END 2023-02-26 11:42 | disposition home or self-care (01) ==
PROVIDERS: Emergency Provider Family Medicine; PCP Family Medicine
DX: J18.9 Pneumonia, unspecified organism (principal); E87.1 Hypo-osmolality and hyponatremia; Z79.82 Long term (current) use of aspirin; Z87.891 Personal history of nicotine dependence; I10 Essential (primary) hypertension
CPT/HCPCS: 70450; 71045; 80053; 81003; 82550; 83735; 85025; 96360; 99285; J7040

== ENCOUNTER 2023-03-01 17:59 | Inpatient (IN) | payer MEDICARE, SELFPAY ==
[2023-03-01] VITALS (10 sets, daily range): BP systolic 157–193; BP diastolic 65–85; PULSE 77–89; RESP 16–25; TEMP 36.8–37.1; O2SAT 97–99
--- NOTE | 2023-03-01 19:57 | XRR_ITS ---
PROCEDURE INFORMATION: Exam: XR Chest Exam date and time: 03/01/2023 8:50 PM Age: 82 years old Clinical indication: Shortness of breath; Additional info: Pneumonia HX TECHNIQUE: Imaging protocol: Radiologic exam of the chest. Views: 1 view. COMPARISON: CR XR chest 1V portable [id number] 02/26/2023 10:47 AM FINDINGS: Lungs: Left upper and right lower lobe calcified granulomas similar to prior exam. Pleural spaces: Unremarkable. No pleural effusion. No pneumothorax. Heart/Mediastinum: Unremarkable. No cardiomegaly. Bones/joints: Unremarkable. XR/XR chest 1V portable [id number] IMPRESSION: Left upper and right lower lobe calcified granulomas similar to prior exam.
[2023-03-01 20:34] LABS: Basophils % 0.2 %; Eosinophils # 0.1 10^3/uL (0.0-0.8); Eosinophils % 0.7 %; Hematocrit 37.6 % (37.0-47.0); Hemoglobin 13.4 g/dL (11.5-15.3); Lymphocytes % 15.9 %; Mean Corpuscular HGB Conc 35.6 g/dL (30.0-36.0); Mean Corpuscular Hemoglobin 32.8 pg (28.0-34.0); Mean Corpuscular Volume 92.2 fl (81-99); Mean Platelet Volume 8.5 fL (7.4-10.4); Monocytes # 1.5 10^3/uL (0.2-0.9); Monocytes % 11.7 %; Neutrophils # 8.89 10^3/uL (1.8-7.7); Neutrophils % 70.5 %; Nucleated Red Blood Cells % 0 %; Platelet Count 304 10^3/cmm (130-400); Red Blood Count 4.08 10^6/uL (4.1-5.3); Red Cell Distribution Width 11.3 % (12.1-15.1); White Blood Count 12.6 10^3/uL (4.0-10.0)
[2023-03-01] MEDS: sodium chloride 0.9% 1,000 ML 999 ML IV (20:39)
[2023-03-01 20:52] LABS: Alanine Aminotransferase 20 U/L (0-33); Albumin Level 4.2 g/dL (3.5-5.2); Alkaline Phosphatase 68 U/L (35-105); Aspartate Amino Transferase 22 U/L (0-32); Blood Urea Nitrogen 10 mg/dL (8-23); Calcium 8.9 mg/dL (8.5-10.5); Carbon Dioxide 24 mmol/L (22-29); Chloride 85 mmol/L (98-107); Globulin 2.9 g/dL (1.3-4.6); Glucose 118 mg/dL (65-115); Osmolality Calculated 246 mOsm/kg (285-295); Total Bilirubin 0.4 mg/dL (0.15-1.2); Total Protein 7.1 g/dL (6.6-8.7)
[2023-03-01 20:53] LABS: Anion Gap 13.8 (5-19); Potassium 4.8 mmol/L (3.5-5.1)
[2023-03-01 20:55] LABS: Lactic Sepsis W/Reflex 1.4 mmol/L (0.5-2.2)
[2023-03-01 20:56] LABS: Sodium 118 mmol/L (136-145)
[2023-03-01 21:36] LABS: Add Urine Microscopic? YES; Bilirubin Urine Neg (Negative); Blood Urine Neg (Negative); Glucose Urine UA Norm (Normal); Ketones Urine Negative (Negative); Leukocyte Esterase Urine Trace (Negative); Nitrate Urine Negative (Negative); Protein Urine Neg (Negative); RBC Urine 0-4 /hpf (0-2); Specific Gravity, Urine 1.005 (1.005-1.030); Urine Appearance Clear (CLEAR); Urine Color Colorless (Yellow); Urobilinogen Urine Norm (Negative); WBC Urine 0-4 /hpf (0-5); pH Urine 7 (5-7)
[2023-03-01 21:37] LABS: Add Urine Culture? No; Squamous Epithelial Cell Urine 0-4 /hpf (0-5)
--- NOTE | 2023-03-01 21:54 | PM.HP ---
Providers/Chief Complaint Primary Care Provider: Poli Lara DO Chief Complaint: hien sent for abn labs (low sodium) History of Present Illness Joanna Wilson is a 82 year old female with history of mild dementia hypertension depression recently being treated with p.o. Levaquin for right lower lobe pneumonia was found to have confusion and serum sodium of 129. The daughter noticed that her confusion has been worsening and she has been complaining more of body aches generalized weakness and headache. Her repeat sodium was found to be 118. There is no history of fever nausea vomiting abdominal pain bowel or urinary complaints. Also as per the daughter she was recently started on p.o. Lasix for lower extremity edema. Review of Systems Narrative: General: no fevers, chills, or significant weight changes Heart: no chest pains, palpitations, or edema Lungs: no increased dyspnea or sputum production GI: no nausea, vomiting, or diarrhea/constipation MS: No new or worsening myalgias or arthralgias. Medications/Allergies Home Medications Medication Instructions Recorded Confirmed Last Taken Type donepezil 10 mg tablet ea PO 05/15/22 11/30/22 Unknown History assisted living admission #1 ea 05/16/22 11/30/22 Unknown Rx L-theanine See Rx Instructions .Route 05/18/22 11/30/22 Unknown Rx .COMPLEX #90 ea acetaminophen 500 mg tablet 1,000 mg PO QAM fever #60 tabs 05/18/22 03/01/23 Unknown Rx (Tylenol Extra Strength) aspirin 81 mg tablet,delayed 81 mg PO DAILY #90 tabs 05/18/22 11/30/22 Unknown Rx release (Adult Low Dose Aspirin) diphenhydramine 25 2 tab PO BEDTIME pain #60 tabs 05/18/22 11/30/22 Unknown Rx mg-acetaminophen 500 mg tablet (Tylenol PM Extra Strength) melatonin 5 mg tablet 5 mg PO DAILY #30 tabs 05/18/22 11/30/22 Unknown Rx lisinopril 30 mg tablet 30 mg PO DAILY #30 tabs 06/06/22 11/30/22 Unknown Rx furosemide 20 mg tablet 20 mg PO DAILY #30 tabs 02/04/23 Unknown Rx levofloxacin 500 mg tablet 500 mg PO DAILY 7 days #7 tabs 02/26/23 Unknown Rx escitalopram oxalate 20 mg tablet 20 mg PO DAILY depression #90 tabs 03/01/23 03/01/23 Unknown Rx Allergies Allergy/AdvReac Type Severity Reaction Status Date / Time No Known Allergies Allergy Verified 03/01/23 18:14 PFSH Acute PFSH: Medical History Hypertension Family History Father Cancer Hyperlipidemia Hypertension Mother Dementia Diabetes Hyperlipidemia Hypertension Other CAD (coronary artery disease) Denies family history of Chronic kidney disease (CKD) Suicide Bleeding disorder Lung disease Stroke Social History Smoking and tobacco status: former smoker Alcohol intake: never Substance/Drug Use: never Adopted: No Household members: other Details: [facility] Housing: Assisted Living Facility Marital status: / Number of children: 3 Number of grandchildren: 9 Highest education level completed: High School Graduate Current occupational status: disabled Current gender identity: Female Vitals/I&O/Wt Last Vital Signs Temp 98.2 F 03/01/23 18:07 Pulse 82 03/01/23 21:45 Resp 16 03/01/23 21:45 BP 179/72 03/01/23 21:45 Pulse Ox 97 03/01/23 21:45 O2 Del Method Room Air 03/01/23 18:07 Weight last 48 hrs Weight 93.894 kg Physical Exam Narrative: Alert awake and orientedx 3, intermittently being confused lying comfortably Chest clear to auscultation bilaterally Cardiovascular normal no murmurs heard Abdomen soft nontender nondistended bowel sounds normal Extremities bilateral lower extremity 2+ edema present Data 03/01/23 20:30 03/01/23 20:36 CXR: Radiologist's impression: Lungs: Left upper and right lower lobe calcified granulomas similar to prior exam. Pleural spaces: Unremarkable. No pleural effusion. No pneumothorax. Heart/Mediastinum: Unremarkable. No cardiomegaly. Bones/joints: Unremarkable. A&P Assessment and plan (1) Hyponatremia: (2) Altered mental state: Plan Altered mental status likely secondary to hyponatremia which in turn is due to recent administration of p.o. Lasix We will admit her to ICU Serum sodium 118, will start her on 3% normal saline till the target sodium is 125 and then will switch to normal saline at 70 mL/h Recheck serum sodium in a.m. Hold p.o. Lasix for now Resume her home medications Continue p.o. levofloxacin 500 mg daily for 3 days Seizure precautions fall precautions Cardiac diet DVT prophylaxis with SCD She is DNR as per her daughter(has power of real estate associate attorney) Attestations Medical Necessity Statement*: Hyponatremia causing confusion needs to be corrected with 3% saline and needs monitoring in ICU. Time Spent in Patient Care: 30 minutes Coding Level of Care Code 47821 Diagnoses Hyponatremia E87.1 Altered mental state R41.82 Time Spent (min) 30
[2023-03-02] VITALS (22 sets, daily range): BP systolic 132–187; BP diastolic 65–84; PULSE 71–84; RESP 14–21; TEMP 36.4–36.8; O2SAT 95–98; BMI 36.6
[2023-03-02] MEDS: lisinopril 20 mg Tablet 30 MG PO ×2 (00:16→08:16)
[2023-03-02] MEDS: acetaminophen 500 mg Tablet 1000 MG PO (00:36)
[2023-03-02] MEDS: sodium chloride 3% 500 ML 30 ML IV (01:59)
--- NOTE | 2023-03-02 04:31 | ED_ITS ---
HPI - Recheck/Abnormal Lab/Rx General: Chief Complaint: Recheck/Abnormal Lab/Rx Stated Complaint: hien sent for abn labs (low sodium) Time Seen by Provider: 03/01/23 19:56 Source: patient and family History of Present Illness: 82-year-old female treated for pneumonia last week, and had been placed on Levaquin. She also had a mildly low sodium at that point. She was told at her follow-up appointment, to have her sodium level redrawn. She was called by her primary care physician later in the afternoon, as her sodium came back at 118. Daughter is with the patient. She has some dementia, but noticed that her mental status has been worse this week. She is not been coughing or short of breath. No history of fever Associated symptoms: fever, chills, chest pain, shortness of breath, nausea and abdominal pain Review of Systems Const: Denies: fever(s) Card: Denies: chest pain Resp: Denies: dyspnea GI: Denies: abdominal pain or vomiting Neuro: Reports: confusion PFSH ED 2 PFSH: Medical History Hypertension Family History Father Cancer Hyperlipidemia Hypertension Mother Dementia Diabetes Hyperlipidemia Hypertension Other CAD (coronary artery disease) Denies family history of Chronic kidney disease (CKD) Suicide Bleeding disorder Lung disease Stroke Social History Smoking and tobacco status: former smoker Alcohol intake: never Substance/Drug Use: never Adopted: No Household members: other Details: [facility] Housing: Assisted Living Facility Marital status: / Number of children: 3 Number of grandchildren: 9 Highest education level completed: High School Graduate Current occupational status: disabled Current gender identity: Female Physical Exam Const: GENERAL APPEARANCE: cooperative and frail appearing HENMT: COMMON NORMALS: normocephalic, atraumatic and Normal external nose present HEAD & SCALP: normocephalic and atraumatic FACE & SINUS: normal facial exam and face symmetric NOSE: Normal external nose present Eye: COMMON NORMALS: Equal, round and reactive pupils present and EOMs intact bilaterally PUPIL: Yes Equal, round and reactive pupils present Neck/C-Spine: GENERAL: Yes trachea midline Chest: CHEST: Yes Symmetrical chest wall rise Resp: COMMON NORMALS: normal respiratory effort, No retractions, No use of accessory muscles and clear to auscultation bilaterally AUSCULTATION: clear to auscultation bilaterally Cardio: COMMON NORMALS: regular rate and regular rhythm RATE: regular rate RHYTHM: regular rhythm GI: COMMON NORMALS: Normal to inspection, nondistended, normoactive bowel sounds present Extremity: COMMON NORMALS: no pedal edema Neuro: GERBER COMA SCALE: document GCS findings Gerber coma scale eye openi ng: Spontaneous [place] coma scale verbal response: Confused Gerber coma scale motor response: Obey commands Gerber coma scale total score: 14 SENSORY EXAM: Yes extremities (intact) Psych: COMMON NORMALS: speech normal SPEECH: Yes normal speech Skin: COMMON NORMALS: no rashes or lesions noted GENERAL SKIN EXAM: no rashes or lesions noted Course Vital Signs: Vital signs: Vital Signs Temperature 98.2 F 03/01/23 22:42 Pulse Rate 76 03/02/23 03:00 Respiratory Rate 19 H 03/02/23 03:00 Blood Pressure 172/73 03/02/23 04:00 Pulse Oximetry 97 03/02/23 03:00 Oxygen Delivery Me thod Room Air 03/01/23 22:47 MDM - Recheck/Abnormal Lab/Rx Medical Decision Making Patient is awake and talking. She is mildly confused, and possibly a bit off of her baseline per daughter. Her vitals are otherwise essentially stable. White blood cell count is 11. Sodium level is resulted is 118 confirming earlier suspicion. No definite pneumonia on chest x-ray. Spoke to the hospitalist. Patient will be placed in the ICU for treatment of hyponatremia. Further testing and treatment to follow. She has received a liter of normal saline in the ER. Lab Data 03/02/23 04:06 03/01/23 20:36 Radiology Impressions Chest X-Ray 03/01/23 19:57 IMPRESSION: Left upper and right lower lobe calcified granulomas similar to prior exam. Laboratory Results WBC 12.6 10^3/uL (4.0-10.0) H 03/01/23 20:30 RBC 4.08 10^6/uL (4.1-5.3) L 03/01/23 20:30 Hgb 13.4 g/dL (11.5-15.3) 03/01/23 20:30 Hct 37.6 % (37.0-47.0) 03/01/23 20:30 MCV 92.2 fl (81-99) 03/01/23 20:30 MCH 32.8 pg (28.0-34.0) 03/01/23 20:30 MCHC 35.6 g/dL (30.0-36.0) 03/01/23 20:30 RDW 11.3 % (12.1-15.1) L 03/01/23 20:30 Plt Count 304 10^3/cmm (130-400) 03/01/23 20:30 MPV 8.5 fL (7.4-10.4) 03/01/23 20:30 Neut % (Auto) 70.5 % 03/01/23 20:30 Lymph % (Auto) 15.9 % 03/01/23 20:30 [place] % (Auto) 11.7 % 03/01/23 20:30 Eos % (Auto) 0.7 % 03/01/23 20: Baso % (Auto) 0.2 % 03/01/23 20:30 Neut # (Auto) 8.89 10^3/uL (1.8-7.7) H 03/01/23 20:30 Lymph # (Auto) 2.0 10^3/uL (0.8-4.8) 03/01/23 20:30 [place] # (Auto) 1.5 10^3/uL (0.2-0.9) H 03/01/23 20:30 Eos # (Auto) 0.1 10^3/uL (0.0-0.8) 03/01/23 20:30 Baso # (Auto) 0.0 10^3/uL (0.0-0.1) 03/01/23 20:30 Nucleated RBC % (auto) 0 % 03/01/23: Nucleated RBCs # 0.0 /100WBC 03/01/23 20:30 Sodium 118 mmol/L (136-145) L* 03/01/23 20:36 Potassium 4.8 mmol/L (3.5-5.1) 03/01/23 20:36 Chloride 85 mmol/L (98-107) L 03/01/23 20:36 Carbon Dioxide 24 mmol/L (22-29) 03/01/23 20:36 Anion Gap 13.8 (5-19) 03/01/23 20:36 BUN 10 mg/dL (8-23) 03/01/23 20:36 Creatinine 0.7 mg/dL (0.5-0.9) 03/01/23 20:36 GFR Calculation Not Reportable 03/01/23 20:36 Glucose 118 mg/dL (65-115) H 03/01/23 20:36 Calculated Osmolality 246 mOsm/kg (285-295) L 03/01/23 20:36 Lactic Acid 1.4 mmol/L (0.5-2.2) 03/01/23 20:36 Calcium 8.9 mg/dL (8.5-10.5) 03/01/23 20:36 Magnesium 2.0 mg/dL (1.7-2.3) 03/01/23 20:36 Total Bilirubin 0.4 mg/dL (0.15-1.2) 03/01/23 20:36 AST 22 U/L (0-32) 03/01/23 20:36 ALT 20 U/L (0-33) 03/01/23 20:36 Alkaline Phosphatase 68 U/L (35-105) 03/01/23 20:36 C-Reactive Protein 3.0 mg/L (0.0-4.9) 03/01/23 20:36 Total Protein 7.1 g/dL (6.6-8.7) 03/01/23 20:36 Albumin 4.2 g/dL (3.5-5.2) 03/01/23 20:36 Globulin 2.9 g/dL (1.3-4.6) 03/01/23 20:36 Urine Color Colorless (Yellow) 03/01/23 21:15 Urine Appearance Clear (CLEAR) 03/01/23 21:15 Urine pH 7 (5-7) 03/01/23 21:15 Ur Specific [place] 1.005 (1.005-1.030) 03/01/23 21:15 Urine Protein Neg (Negative) 03/01/23 21:15 Urine Glucose (UA) Norm (Normal) 03/01/23 21:15 Urine Ketones Negative (Negative) 03/01/23 21:15 Urine Blood Neg (Negative) 03/01/23 21:15 Urine Nitrate Negative (Negative) 03/01/23 21:15 Urine Bilirubin Neg (Negative) 03/01/23 21:15 Urine Urobilinogen Norm mg/dL (Negative) 03/01/23 21:15 Ur Leukocyte Esterase Trace (Negative) H 03/01/23 21:15 Urine RBC 0-4 /hpf (0-2) H 03/01/23 21:15 Urine WBC 0-4 /hpf (0-5) H 03/01/23 21:15 Ur Squamous Epith Cells 0-4 /hpf (0-5) H 03/01/23 21:15 Amorphous Sediment Not Reportable 03/01/23 21:15 Urine Bacteria None /hpf (NONE) 03/01/23 21:15 Discharge Plan Discharge Patient Disposition: Admitted As Inpatient Admit Provider: Romana Nazario Clinical Impression: Hyponatremia Condition: Stable Coding Level of Care Code ED Systems Designer for Jennifer Walton
[2023-03-02 04:36] LABS: Basophils % 0.4 %; Eosinophils # 0.1 10^3/uL (0.0-0.8); Eosinophils % 1.2 %; Hematocrit 35.5 % (37.0-47.0); Hemoglobin 12.5 g/dL (11.5-15.3); Lymphocytes # 2.3 10^3/uL (0.8-4.8); Lymphocytes % 20.6 %; Mean Corpuscular HGB Conc 35.2 g/dL (30.0-36.0); Mean Corpuscular Hemoglobin 33.4 pg (28.0-34.0); Mean Corpuscular Volume 94.9 fl (81-99); Mean Platelet Volume 8.4 fL (7.4-10.4); Monocytes # 1.6 10^3/uL (0.2-0.9); Monocytes % 13.9 %; Neutrophils # 7.09 10^3/uL (1.8-7.7); Neutrophils % 63.2 %; Nucleated Red Blood Cells % 0 %; Platelet Count 293 10^3/cmm (130-400); Red Blood Count 3.74 10^6/uL (4.1-5.3); Red Cell Distribution Width 11.5 % (12.1-15.1); White Blood Count 11.2 10^3/uL (4.0-10.0)
[2023-03-02 04:58] LABS: Alanine Aminotransferase 19 U/L (0-33); Albumin Level 3.8 g/dL (3.5-5.2); Alkaline Phosphatase 66 U/L (35-105); Anion Gap 15.6 (5-19); Aspartate Amino Transferase 18 U/L (0-32); Blood Urea Nitrogen 9 mg/dL (8-23); Carbon Dioxide 22 mmol/L (22-29); Chloride 92 mmol/L (98-107); Globulin 2.9 g/dL (1.3-4.6); Glucose 99 mg/dL (65-115); Magnesium 2.1 mg/dL (1.7-2.3); Osmolality Calculated 259 mOsm/kg (285-295); Potassium 4.6 mmol/L (3.5-5.1); Sodium 125 mmol/L (136-145); Total Bilirubin 0.5 mg/dL (0.15-1.2); Total Protein 6.7 g/dL (6.6-8.7)
[2023-03-02 05:00] LABS: Phosphorus 2.4 mg/dL (2.5-4.5)
[2023-03-02] MEDS: sodium chloride 0.9% 1,000 ML 100 ML IV ×3 (05:59→19:06)
--- NOTE | 2023-03-02 07:25 | PC.PHAR ---
pt is from [facility] [phone]-per chiki nurse from [facility] states the pts daughter is at the facility and she will send a copy of the mar and tar with her
--- NOTE | 2023-03-02 08:00 | ECG_ITS ---
[facility] Test Date: 2023-03-02 Pat Name: Joanna Wilson Department: Room: ICU07 Gender: Female Subsurface Augmentee Operator: : [id number] Requested By: Romana Nzaario Order Number: [id number] Leeroy MD: Noé Johnson M.D. Measurements Intervals [place] Rate: 75 P: -23 [place]: 144 QRS: 47 QRSD: 91 T: 58 QT: 388 QTc: 435 Interpretive Statements SINUS RHYTHM MODERATE ST DEPRESSION [0.05+ mV ST DEPRESSION] Compared to ECG 04/30/2021 12:47:24 ST (T wave) deviation now present Poor R-wave progression no longer present Electronically Signed On 03-02-2023 7:51:01 CDT by Noé Johnson M.D. [id number]
[2023-03-02] MEDS: donepezil 5 MG Tablet 10 MG PO (08:16)
[2023-03-02] MEDS: aspirin 81 mg EC Tablet PO (08:16)
[2023-03-02] MEDS: levoFLOXacin 500 mg Tablet PO (08:16)
[2023-03-02] MEDS: escitalopram 10 mg Tablet PO (08:17)
--- NOTE | 2023-03-02 17:44 | PC.NURSE ---
Report called to DIMA Thao.
--- NOTE | 2023-03-02 20:10 | PM.PN ---
Subjective Subjective: Patient is awake and alert. She states she feels somewhat better. Her 2 daughters are bedside and very supportive. Patient denies fevers, chills, nausea or emesis. Reports a progressive decline in strength and endurance over the past several weeks. Medications: Reviewed: Yes Vitals/I&O/Wt Last Vital Signs Temp 97.9 F 03/02/23 17:47 Pulse 73 03/02/23 17:47 Resp 18 03/02/23 17:47 BP 137/84 03/02/23 17:47 Pulse Ox 97 03/02/23 17:47 O2 Del Method Room Air 03/02/23 17:47 03/02/23 03/02/23 03/02/23 06:59 14:59 22:59 Intake Total 870.5 / 1870.5 570 / 570 1311.667 / 1881.667 Output Total 200 / 200 400 / 600 Balance 870.5 / 1870.5 370 / 370 911.667 / 1281.667 Weight last 48 hrs Weight 93.894 kg Weight 93.894 kg Physical Exam Narrative: GENERAL: The patient is awake and alert. HEENT: Normocephalic, atraumatic. Extraocular muscles intact. NECK: No JVD. CARDIOVASCULAR: Normal S1 and S2. No murmurs, rubs, or gallops. 1+ peripheral edema. RESPIRATORY: Clear to auscultation bilaterally. No wheezing. No rales. No rhonchi. ABDOMEN: Soft. Not tender. Not distended. Bowel sounds present. No guarding. EXTREMITIES: No cyanosis. No clubbing. SKIN: No skin rash. No jaundice. CENTRAL NERVOUS SYSTEM: Moves all 4 extremities. No myoclonus. Data 03/02/23 04:06 03/02/23 04:06 A&P Assessment and plan (1) Hyponatremia: (2) Altered mental state: Plan Symptomatic hyponatremia Acute metabolic encephalopathy -Na level improving, off hypertonic -Hold Lasix, d/c at discharge -Consider alternative diuretic at discharge, avoid loop and thiazide -Mentation improving -Family bedside and very supportive -Continue normal saline for now -Monitor electrolytes -With sodium improving, transfer out of ICU Recently diagnosed CAP -Already stated on Levaquin, will continue Code status: DNR Attestations Medical Necessity Statement*: Patient requires ongoing hospitalization for serial labs, IV electrolyte replacment, and supportive care. Coding Level of Care Code Acute Code for g Fwd Diagnoses Hyponatremia E87.1 Altered mental state R41.82
[2023-03-03] VITALS (7 sets, daily range): BP systolic 153–199; BP diastolic 68–82; PULSE 73–101; RESP 16–21; TEMP 36.4–36.9; O2SAT 94–97
[2023-03-03 05:53] LABS: Albumin Level 3.8 g/dL (3.5-5.2); Anion Gap 15.3 (5-19); Blood Urea Nitrogen 9 mg/dL (8-23); Calcium 9.1 mg/dL (8.5-10.5); Carbon Dioxide 23 mmol/L (22-29); Chloride 94 mmol/L (98-107); Glucose 101 mg/dL (65-115); Phosphorus 2.3 mg/dL (2.5-4.5); Potassium 4.3 mmol/L (3.5-5.1); Sodium 128 mmol/L (136-145)
[2023-03-03] MEDS: lisinopril 20 mg Tablet 30 MG PO (08:08)
[2023-03-03] MEDS: levoFLOXacin 500 mg Tablet PO (08:08)
[2023-03-03] MEDS: donepezil 5 MG Tablet 10 MG PO (08:08)
[2023-03-03] MEDS: escitalopram 10 mg Tablet PO (08:08)
[2023-03-03] MEDS: aspirin 81 mg EC Tablet PO (08:08)
[2023-03-03] MEDS: sodium chloride 0.9% 1,000 ML 100 ML IV (08:10)
[2023-03-03 09:34] LABS: Glucose Point of Care 136 mg/dL (70-110)
--- NOTE | 2023-03-03 11:52 | PM.PN ---
Subjective Subjective: This morning patient was able to work with PT She is laying supine however seems very anxious stating that she is shaking but I do not see any signs of seizure or shakiness at all Vitals/I&O/Wt Last Vital Signs Temp 97.6 F 03/03/23 07:23 Pulse 101 H 03/03/23 07:23 Resp 20 H 03/03/23 07:23 BP 182/80 03/03/23 07:23 Pulse Ox 97 03/03/23 07:23 O2 Del Method Room Air 03/03/23 07:23 03/02/23 03/03/23 03/03/23 22:59 06:59 14:59 Intake Total 1431.667 / 2001.667 1150 / 3151.667 120 / 120 Output Total 400 / 600 Balance 1031.667 / 7345.515 1598 / 2551.667 120 / 120 Weight last 48 hrs Weight 93.894 kg Weight 93.894 kg Physical Exam Narrative: Abdomen soft Able to follow commands GCS 15 NIH 0 Anxious appearing Currently on room air S1, S2 Pupils are asymmetrical Data 03/02/23 04:06 03/03/23 04:20 A&P Assessment and plan (1) Altered mental state: (2) Depression: (3) Hyponatremia: (4) Dementia: (5) Memory changes: (6) Hypertension: Plan Metabolic encephalopathy related to hyponatremia Sodium correcting gradually No active signs of neurological decompensation Patient is anxious appearing Awake and alert DNR/DNI Currently on room air I would like to monitor her sodium for 1 more day Off Lasix Patient carries dementia without any acute worsening Continue IV fluids Attestations Medical Necessity Statement*: Discharge tomorrow if clinically stable Diagnoses Altered mental state R41.82 Depression F32.A Hyponatremia E87.1 Dementia F03.90 Memory changes R41.3 Hypertension I10
[2023-03-03] MEDS: hyDRALAzine 25 mg Tablet PO ×2 (12:10→17:36)
[2023-03-03 17:50] LABS: Sodium 124 mmol/L (136-145)
[2023-03-04] VITALS (7 sets, daily range): BP systolic 120–178; BP diastolic 65–78; PULSE 60–78; RESP 18–19; TEMP 36.4–36.8; O2SAT 93–96
[2023-03-04 04:28] LABS: Anion Gap 13.1 (5-19); Blood Urea Nitrogen 12 mg/dL (8-23); Calcium 9.2 mg/dL (8.5-10.5); Carbon Dioxide 24 mmol/L (22-29); Chloride 92 mmol/L (98-107); Glucose 103 mg/dL (65-115); Osmolality Calculated 260 mOsm/kg (285-295); Potassium 4.1 mmol/L (3.5-5.1); Sodium 125 mmol/L (136-145)
[2023-03-04] MEDS: ondansetron 2 mg/ML SDV 2 mL 4 MG IVP (07:48)
[2023-03-04] MEDS: lisinopril 20 mg Tablet 30 MG PO (07:51)
[2023-03-04] MEDS: levoFLOXacin 500 mg Tablet PO (07:51)
[2023-03-04] MEDS: aspirin 81 mg EC Tablet PO (07:52)
[2023-03-04] MEDS: hyDRALAzine 25 mg Tablet PO ×2 (07:52→17:27)
[2023-03-04] MEDS: donepezil 5 MG Tablet 10 MG PO (07:52)
[2023-03-04] MEDS: escitalopram 10 mg Tablet PO (07:52)
[2023-03-04 08:47] LABS: Thyroid Stimulating Hormone 2.88 uIU/mL (0.27-4.20)
[2023-03-04] MEDS: sodium chloride 0.9% 1,000 ML 100 ML IV ×2 (10:00→20:19)
--- NOTE | 2023-03-04 10:13 | PM.CONSULT ---
Providers/Reason For Consult Consulting Physician/Specialty*: [facility]/Nephrology Reason for Consult*: Hyponatremia Attending Physician: Erin Farah MD Primary Care Provider: Poli Lara DO History of Present Illness History of Present Illness 82-year-old female with history of hypertension, depression, mild dementia was admitted to the hospital on 03/01/2023 due to abnormal labs-hyponatremia. And altered mental status with confusion. Patient's family noted that patient was confused and also complaining of generalized weakness. In the ED her labs were significant for hyponatremia with a sodium of 118. Patient was admitted to ICU and was given 3% saline and sodium has improved to mid 120s range currently. Diuretics have been held. Her IV fluids were discontinued yesterday and sodium has dropped from 1 28-1 25 today. Patient reports still with very poor p.o. intake. Review of Systems Narrative: other ROS negative Medications/Allergies Home Medications Medication Instructions Recorded Confirmed Last Taken Type assisted living admission #1 ea 05/16/22 03/02/23 Unknown Rx aspirin 81 mg tablet,delayed 81 mg PO DAILY #90 tabs 05/18/22 03/02/23 Unknown Rx release (Adult Low Dose Aspirin) lisinopril 30 mg tablet 30 mg PO DAILY #30 tabs 06/06/22 03/02/23 Unknown Rx furosemide 20 mg tablet 20 mg PO DAILY #30 tabs 02/04/23 03/02/23 Unknown Rx levofloxacin 500 mg tablet 500 mg PO DAILY 7 days #7 tabs 02/26/23 03/02/23 Unknown Rx escitalopram oxalate 20 mg tablet 20 mg PO DAILY depression #90 tabs 03/01/23 03/02/23 Unknown Rx L-Theanine See Rx Instructions .Route .COMPLEX 03/02/23 03/02/23 Unknown History acetaminophen 500 mg tablet 500 mg PO DAILY 03/02/23 03/02/23 Unknown History diphenhydramine 25 2 tab PO BEDTIME 03/02/23 03/02/23 Unknown History mg-acetaminophen 500 mg tablet (Tylenol PM Extra Strength) melatonin 5 mg tablet See Rx Instructions .Route .COMPLEX 03/02/23 03/02/23 Unknown History Allergies Allergy/AdvReac Type Severity Reaction Status Date / Time No Known Allergies Allergy Verified 03/01/23 18:14 Current Medications Generic Name Dose Route Start Last Admin Trade Name Freq PRN Reason Stop Dose Admin Acetaminophen 1,000 mg 03/02/23 00:30 03/02/23 00:36 Acetaminophen 500 Mg Tablet PO 1,000 mg ONCE BRAD Administration Aspirin 81 mg 03/02/23 09:00 03/04/23 07:52 Aspirin 81 Mg Ec Tablet PO 81 mg DAILY BRAD Administration Donepezil HCl 10 mg 03/02/23 09:00 03/04/23 07:52 Donepezil 5 Mg Tablet PO 10 mg DAILY BRAD Administration Escitalopram Oxalate 10 mg 03/02/23 09:00 03/04/23 07:52 Escitalopram 10 Mg Tablet PO 10 mg DAILY BRAD Administration Hydralazine HCl 25 mg 03/03/23 12:00 03/04/23 07:52 Hydralazine 25 Mg Tablet PO 25 mg BID BRAD Administration Levofloxacin 500 mg 03/02/23 09:00 03/04/23 07:51 Levofloxacin 500 Mg Tablet PO 500 mg DAILY BRAD Administration Protocol Lisinopril 30 mg 03/02/23 09:00 03/04/23 07:51 Lisinopril 20 Mg Tablet PO 30 mg DAILY BRAD Administration Non-Formulary Medication 5 mg 03/02/23 09:00 03/04/23 07:53 Melatonin PO Not Given DAILY BRAD PFSH Acute PFSH: Medical History Hypertension Surgical History (Updated 03/03/23 @ 11:53 by Erin Farah MD) Hx of appendectomy Hx of cholecystectomy Hx of hysterectomy Family History Father Cancer Hyperlipidemia Hypertension Mother Dementia Diabetes Hyperlipidemia Hypertension Other CAD (coronary artery disease) Denies family history of Chronic kidney disease (CKD) Suicide Bleeding disorder Lung disease Stroke Social History Smoking and tobacco status: former smoker Alcohol intake: never Substance/Drug Use: never Adopted: No Household members: other Details: [facility] Housing: Assisted Living Facility Marital status: / Number of children: 3 Number of grandchildren: 9 Highest education level completed: High School Graduate Current occupational status: disabled Current gender identity: Female Vitals/I&O/Wt Last Vital Signs Temp 97.7 F 03/04/23 07:28 Pulse 71 03/04/23 07:28 Resp 18 03/04/23 07:28 BP 170/78 03/04/23 07:28 Pulse Ox 95 03/04/23 07:28 O2 Del Method Room Air 03/04/23 07:28 Physical Exam Narrative: Awake alert, no acute distress, HEENT S1-S2 regular rate and rhythm per report Lungs clear per report No pedal edema Data 03/02/23 04:06 03/04/23 03:16 A&P Assessment and plan (1) Hyponatremia: 1. Hyponatremia: Likely hypovolemic, awaiting urine sodium and urine osmolality. Patient responded to normal saline infusion until yesterday with a sodium of 128. We will restart normal saline and monitor. Check BMP every 12 hours. Continue to hold Lasix. Noted normal TSH levels. 2. HTN: BP elevated , titrate hydralazine dose up. pt evaluated using AV cart. Time spent 35 min Consult Attestations Medical Necessity Statement: per niranjan Coding Level of Care Code Acute Code for Chg Fwd Diagnoses Hyponatremia E87.1
--- NOTE | 2023-03-04 10:38 | PC.SOCIAL ---
IMM Update pg 2 of IMM updated and reviewed w/ patient's daughter and DPOA Elizabeth. Copy provided and Copy dated, initialed and placed in chart.
--- NOTE | 2023-03-04 11:35 | PM.PN ---
Subjective Subjective: Sodium 125 today Restart normal saline We will consult nephro requested osmolarity and urine sodium Patient endorses feeling slightly better Vitals/I&O/Wt Last Vital Signs Temp 97.7 F 03/04/23 07:28 Pulse 71 03/04/23 07:28 Resp 18 03/04/23 07:28 BP 170/78 03/04/23 07:28 Pulse Ox 95 03/04/23 07:28 O2 Del Method Room Air 03/04/23 07:28 Physical Exam Narrative: Patient is laying supine Feeling better as compared to yesterday Work with PT Looks euvolemic Abdomen soft GCS 15 On focal neuro exam S1, S2 Doing well on room air Afebrile Data 03/02/23 04:06 03/04/23 03:16 A&P Assessment and plan (1) Altered mental state: (2) Depression: (3) Hyponatremia: (4) Dementia: (5) Memory changes: (6) Hypertension: Plan Metabolic encephalopathy related to hyponatremia: Improving Hyponatremia related to hypovolemia and dehydration continue normal saline at this point consulted nephro Normal TSH DNR/DNI Working with PT Plan to discharge her tomorrow if sodium around 1 29-1 30 Dementia without acute worsening Left a voicemail to her daughter I would like to hold discharge because of her sodium 125 today Attestations Medical Necessity Statement*: Discharge tomorrow Diagnoses Altered mental state R41.82 Depression F32.A Hyponatremia E87.1 Dementia F03.90 Memory changes R41.3 Hypertension I10
[2023-03-04 12:32] LABS: Urine Creatinine 107 mg/dL (28-217); Urine Random Sodium 72 mmol/L
[2023-03-05 00:08] VITALS: BP 138/68; PULSE 71; RESP 20; TEMP 36.7; O2SAT 95
[2023-03-05 03:50] VITALS: BP 159/79; PULSE 68; RESP 17; TEMP 36.7; O2SAT 96
[2023-03-05 05:06] LABS: Anion Gap 14.5 (5-19); Blood Urea Nitrogen 12 mg/dL (8-23); Calcium 9.2 mg/dL (8.5-10.5); Carbon Dioxide 26 mmol/L (22-29); Chloride 96 mmol/L (98-107); Glucose 109 mg/dL (65-115); Osmolality Calculated 274 mOsm/kg (285-295); Potassium 4.5 mmol/L (3.5-5.1); Sodium 132 mmol/L (136-145)
[2023-03-05] MEDS: sodium chloride 0.9% 1,000 ML 100 ML IV (05:40)
[2023-03-05 08:00] VITALS: BP 181/75; PULSE 69; RESP 18; TEMP 36.1; O2SAT 97
[2023-03-05] MEDS: levoFLOXacin 500 mg Tablet PO (08:37)
[2023-03-05] MEDS: escitalopram 10 mg Tablet PO (08:37)
[2023-03-05] MEDS: hyDRALAzine 25 mg Tablet PO (08:37)
[2023-03-05] MEDS: lisinopril 20 mg Tablet 30 MG PO (08:37)
[2023-03-05] MEDS: donepezil 5 MG Tablet 10 MG PO (08:37)
[2023-03-05] MEDS: aspirin 81 mg EC Tablet PO (08:37)
--- NOTE | 2023-03-05 10:45 | PM.PN ---
Subjective Subjective: no new complaints Medications: Reviewed: Yes Vitals/I&O/Wt Last Vital Signs Temp 97.0 F L 03/05/23 08:00 Pulse 69 03/05/23 08:00 Resp 18 03/05/23 08:00 BP 181/75 03/05/23 08:00 Pulse Ox 97 03/05/23 08:00 O2 Del Method Room Air 03/05/23 08:00 03/04/23 03/05/23 03/05/23 22:59 06:59 14:59 Intake Total 1120 / 1360 935 / 2295 680 / 680 Balance 1120 / 1360 935 / 2295 680 / 680 Physical Exam Narrative: Awake alert, no acute distress, HEENT S1-S2 regular rate and rhythm per report Lungs clear per report No pedal edema Data 03/02/23 04:06 03/05/23 04:19 A&P Assessment and plan (1) Hyponatremia: 1. Hyponatremia: Likely hypovolemic, awaiting urine sodium and urine osmolality. Patient responded to normal saline infusion until yesterday with a sodium of 128. . dc IVFs . can resume lasix @ 20 mg daily 2. HTN: BP elevated , titrate hydralazine dose up. pt evaluated using AV cart. Time spent 35 min Attestations Medical Necessity Statement*: per medicine Coding Level of Care Code Acute Code for g Fwd Diagnoses Hyponatremia E87.1
--- NOTE | 2023-03-05 11:09 | PM.DCS ---
Discharge Providers Date of Admission: 03/01/23 21:53 Date of Discharge: March 05, 2023 Attending Provider at Admission: Romana Nazario MD Attending Provider at Discharge: Erin Farah MD Primary Care Provider: Poli Lara DO Diagnoses at Discharge Discharge Diagnosis (1) Hyponatremia: Status: Acute Reason for Visit Reason for Visit: hien sent for abn labs (low sodium) Hospital Course Hospital Course 82-year female who presented to hospital with chief complaint of fatigue lethargy fluctuant mentation related to hyponatremia, her hyponatremia was corrected gradually with use of normal saline, Lasix was discontinued, family started on Lasix for lower extremity edema which was not present during clinical exam throughout hospitalization, nephrology was consulted as well see their consultation note for further details, patient is endorsing feeling better with improvement in sodium sodium at the time of discharge is 132, I have notified her daughter not to use Lasix anymore and for her hypertension they may use metoprolol, hydralazine along lisinopril and avoid amlodipine because of lower extremity edema. TSH normal. B12 normal. Urine and serum osmolalities pending. This was likely related to hypovolemic hyponatremia which improved with IV fluid hydration. Discontinue Lasix at discharge Physical Exam Narrative: Patient is laying supine Walked 80 feet Looks euvolemic Abdomen soft GCS 15 On focal neuro exam S1, S2 Doing well on room air Afebrile Discharge Data Studies Completed and Pending Completed Studies During Hospitalization Category Date Time Status XR chest 1V portable [id number] Stat Exams 03/01/23 19:57 Completed Pending at discharge Category Date Time Status BMP [Basic Metabolic Panel] Routine Lab 03/05/23 10:23 Ordered Osmolality Serum Routine Lab 03/04/23 03:16 Received Osmolality Urine Stat Lab 03/04/23 11:17 Received Radiology Impressions Chest X-Ray 03/01/23 19:57 IMPRESSION: Left upper and right lower lobe calcified granulomas similar to prior exam. Laboratory Results WBC 11.2 10^3/uL (4.0-10.0) H 03/02/23 04:06 RBC 3.74 10^6/uL (4.1-5.3) L 03/02/23 04:06 Hgb 12.5 g/dL (11.5-15.3) 03/02/23 04:06 Hct 35.5 % (37.0-47.0) L 03/02/23 04:06 MCV 94.9 fl (81-99) 03/02/23 04:06 MCH 33.4 pg (28.0-34.0) 03/02/23 04:06 MCHC 35.2 g/dL (30.0-36.0) 03/02/23 04:06 RDW 11.5 % (12.1-15.1) L 03/02/23 04:06 Plt Count 293 10^3/cmm (130-400) 03/02/23 04:06 MPV 8.4 fL (7.4-10.4) 03/02/23 04:06 Neut % (Auto) 63.2 % 03/02/23 04:06 Lymph % (Auto) 20.6 % 03/02/23 04:06 Boundary % (Auto) 13.9 % 03/02/23 04:06 Eos % (Auto) 1.2 % 03/02/23 04:06 Baso % (Auto) 0.4 % 03/02/23 04:06 Neut # (Auto) 7.09 10^3/uL (1.8-7.7) 03/02/23 04:06 Lymph # (Auto) 2.3 10^3/uL (0.8-4.8) 03/02/23 04:06 Boundary # (Auto) 1.6 10^3/uL (0.2-0.9) H 03/02/23 04:06 Eos # (Auto) 0.1 10^3/uL (0.0-0.8) 03/02/23 04:06 Baso # (Auto) 0.0 10^3/uL (0.0-0.1) 03/02/23 04:06 Nucleated RBC % (auto) 0 % 03/02/23 04:06 Nucleated RBCs # 0.0 /100WBC 03/02/23 04:06 Sodium 132 mmol/L (136-145) L 03/05/23 04:19 Potassium 4.5 mmol/L (3.5-5.1) 03/05/23 04:19 Chloride 96 mmol/L (98-107) L 03/05/23 04:19 Carbon Dioxide 26 mmol/L (22-29) 03/05/23 04:19 Anion Gap 14.5 (5-19) 03/05/23 04:19 BUN 12 mg/dL (8-23) 03/05/23 04:19 Creatinine 0.8 mg/dL (0.5-0.9) 03/05/23 04:19 GFR Calculation Not Reportable 03/05/23 04:19 Glucose 109 mg/dL (65-115) 03/05/23 04:19 POC Glucose 136 mg/dL (70-110) H 03/03/23 09:19 Calculated Osmolality 274 mOsm/kg (285-295) L 03/05/23 04:19 Lactic Acid 1.4 mmol/L (0.5-2.2) 03/01/23 20:36 Calcium 9.2 mg/dL (8.5-10.5) 03/05/23 04:19 Phosphorus 2.3 mg/dL (2.5-4.5) L 03/03/23 04:20 Magnesium 2.1 mg/dL (1.7-2.3) 03/02/23 04:06 Total Bilirubin 0.5 mg/dL (0.15-1.2) 03/02/23 04:06 AST 18 U/L (0-32) 03/02/23 04:06 ALT 19 U/L (0-33) 03/02/23 04:06 Alkaline Phosphatase 66 U/L (35-105) 03/02/23 04:06 C-Reactive Protein 3.0 mg/L (0.0-4.9) 03/01/23 20:36 Total Protein 6.7 g/dL (6.6-8.7) 03/02/23 04:06 Albumin 3.8 g/dL (3.5-5.2) 03/03/23 04:20 Globulin 2.9 g/dL (1.3-4.6) 03/02/23 04:06 TSH 2.88 uIU/mL (0.27-4.20) 03/04/23 03:16 Urine Color Colorless (Yellow) 03/01/23 21:15 Urine Appearance Clear (CLEAR) 03/01/23 21:15 Urine pH 7 (5-7) 03/01/23 21:15 Ur Specific [place] 1.005 (1.005-1.030) 03/01/23 21:15 Urine Protein Neg (Negative) 03/01/23 21:15 Urine Glucose (UA) Norm (Normal) 03/01/23 21:15 Urine Ketones Negative (Negative) 03/01/23 21:15 Urine Blood Neg (Negative) 03/01/23 21:15 Urine Nitrate Negative (Negative) 03/01/23 21:15 Urine Bilirubin Neg (Negative) 03/01/23 21:15 Urine Urobilinogen Norm mg/dL (Negative) 03/01/23 21:15 Ur Leukocyte Esterase Trace (Negative) H 03/01/23 21:15 Urine RBC 0-4 /hpf (0-2) H 03/01/23 21:15 Urine WBC 0-4 /hpf (0-5) H 03/01/23 21:15 Ur Squamous Epith Cells 0-4 /hpf (0-5) H 03/01/23 21:15 Amorphous Sediment Not Reportable 03/01/23 21:15 Urine Bacteria None /hpf (NONE) 03/01/23 21:15 Ur Random Sodium 72 mmol/L 03/04/23 11:17 Urine Creatinine 107 mg/dL (28-217) 03/04/23 11:17 Vitals Last Vital Signs Temp 97.0 F L 03/05/23 08:00 Pulse 69 03/05/23 08:00 Resp 18 03/05/23 08:00 BP 181/75 03/05/23 08:00 Pulse Ox 97 03/05/23 08:00 O2 Del Method Room Air 03/05/23 08:00 Discharge Plan Discharge Patient Disposition: Home Condition: Stable Prescriptions: New metoprolol tartrate 25 mg tablet 25 mg PO BID Qty: 60 0RF hydralazine 10 mg tablet 10 mg PO BID Qty: 60 0RF Continued (DME) assisted living admission See Rx Instructions .Route .MEDSUPPLY Qty: 1 0RF Rx Instructions: admit to assisted living; admit to [facility] escitalopram oxalate 20 mg tablet 20 mg PO DAILY Qty: 90 1RF aspirin [Adult Low Dose Aspirin] 81 mg tablet,delayed release (DR/EC) 81 mg PO DAILY Qty: 90 0RF lisinopril 30 mg tablet 30 mg PO DAILY Qty: 30 5RF levofloxacin 500 mg tablet 500 mg PO DAILY 7 Days Qty: 7 0RF Rx Instructions: stop date 03/05/23 acetaminophen 500 mg Tablet 500 mg PO DAILY melatonin 5 mg Tablet See Rx Instructions .ROUTE .COMPLEX Rx Instructions: 5mg po every other night at bedtime L-Theanine See Rx Instructions .ROUTE .COMPLEX Rx Instructions: 100 mg po every other day at bedtime Tylenol PM Extra Strength 25-500 mg tablet 2 tab PO BEDTIME Discontinued furosemide 20 mg tablet 20 mg PO DAILY Qty: 30 5RF Hold Instructions: Resume on 03/08/23. Discharge Orders: Discharge Order (Routine); Ordered 03/05/23 Ordered By: Erin Farah Referrals: Poli Lara DO [Primary Care Provider] - 03/18/23 9:40 am Discharge Diet: Regular Discharge Activity: Increase activity as tolerated Patient Instructions: Metoprolol (By mouth), Hydralazine (By mouth), Hyponatremia, Opioid Safety Activity Restrictions/Additional Instructions: Please do not take Lasix for now For high blood pressure take lisinopril metoprolol and hydralazine Please follow-up with PCP Discharge Attestations Time Spent in Discharge Care*: greater than 30 min Quality Metrics Clinical Quality Measures [ No reported AMI, CVA or VTE this stay] Coding Level of Care Code Acute Code for Chg Fwd Diagnoses Hyponatremia E87.1
[2023-03-05 11:27] VITALS: BP 181/75; PULSE 69; RESP 18; TEMP 36.1; O2SAT 97
[2023-03-05 15:44] LABS: Osmolality Urine 505 mOsm/kg (50-1200)
[2023-03-05 15:49] LABS: Osmolality Serum 259 mOsm/kg (278-305)
== END 2023-03-05 11:29 | disposition home or self-care (01) | DRG 640 ==
LOC: ER 21:53 → ICU 22:17 → MEDSURG 03-02 17:41
PROVIDERS: Hospitalist; Internal Medicine; Admitting Provider Internal Medicine; Emergency Provider Emergency Medicine; PCP Family Medicine; Visit Provider Internal Medicine
DX: E87.1 Hypo-osmolality and hyponatremia (principal); G93.41 Metabolic encephalopathy; I10 Essential (primary) hypertension; E86.1 Hypovolemia; Z79.82 Long term (current) use of aspirin; F03.90 Unspecified dementia, unspecified severity, without behavioral disturbance, psychotic disturbance, mood disturbance, and anxiety; Z87.01 Personal history of pneumonia (recurrent); Z87.891 Personal history of nicotine dependence
CPT/HCPCS: 12345; 36415; 36416; 70450; 71045; 80048; 80053; 80069; 81001; 81003; 82550; 82570; 82962; 83605; 83735; 83880; 83930; 83935; 84100; 84295; 84300; 84443; 85025; 86140; 93005; 96360; 97116; 97161; 97530; 99222; 99285; J2405; J7030; J7040; J7131

== ENCOUNTER → 2023-05-31 10:44 | Outpatient (BNVA) | payer MEDICARE, SELFPAY | PROVIDERS: PCP Family Medicine; Visit Provider Family Medicine | DX: E87.1 Hypo-osmolality and hyponatremia (principal); F03.90 Unspecified dementia, unspecified severity, without behavioral disturbance, psychotic disturbance, mood disturbance, and anxiety; R53.81 Other malaise | CPT/HCPCS: 80053; 82607 ==

== ENCOUNTER → 2023-09-24 11:18 | Outpatient (BNVA) | payer MEDICARE, SELFPAY | PROVIDERS: PCP Family Medicine; Visit Provider Family Medicine | DX: E87.1 Hypo-osmolality and hyponatremia (principal); F03.90 Unspecified dementia, unspecified severity, without behavioral disturbance, psychotic disturbance, mood disturbance, and anxiety; R60.9 Edema, unspecified; R53.81 Other malaise; B34.9 Viral infection, unspecified; E03.9 Hypothyroidism, unspecified | CPT/HCPCS: 80053; 82607; 84443; 85025 ==

== ENCOUNTER → 2024-02-13 08:37 | Outpatient (BNVA) | payer MEDICARE, SELFPAY | PROVIDERS: PCP Family Medicine; Visit Provider Podiatrist Foot & Ankle Surgery | DX: L60.0 Ingrowing nail (principal); I73.9 Peripheral vascular disease, unspecified; L60.3 Nail dystrophy; L03.031 Cellulitis of right toe | CPT/HCPCS: 11721; 11750; 99203 ==

== ENCOUNTER → 2024-03-02 10:13 | Outpatient (BNVA) | payer MEDICARE, SELFPAY | PROVIDERS: PCP Family Medicine; Visit Provider Family Medicine | DX: Z13.6 Encounter for screening for cardiovascular disorders (principal); I10 Essential (primary) hypertension; I73.9 Peripheral vascular disease, unspecified; E87.1 Hypo-osmolality and hyponatremia; R60.9 Edema, unspecified; R53.81 Other malaise; E03.9 Hypothyroidism, unspecified | CPT/HCPCS: 80053; 80061; 82607; 84443 ==

== ENCOUNTER → 2024-03-13 08:08 | Outpatient (BNVA) | payer MEDICARE, SELFPAY | PROVIDERS: PCP Family Medicine; Visit Provider Podiatrist Foot & Ankle Surgery | DX: L60.3 Nail dystrophy (principal); L60.0 Ingrowing nail; L03.031 Cellulitis of right toe; I73.9 Peripheral vascular disease, unspecified | CPT/HCPCS: 99213 ==

== ENCOUNTER 2024-04-11 12:46 | Inpatient (IN) | payer MEDICARE, SELFPAY ==
[2024-04-11] VITALS (14 sets, daily range): BP systolic 146–193; BP diastolic 60–85; PULSE 64–83; RESP 14–18; TEMP 36.6–37.2; O2SAT 92–100; BMI 38.2
--- NOTE | 2024-04-11 | XR_ITS ---
WS: [id number] C-ARM RADIOGRAPHS LEFT FOOT; 1 IMAGES HISTORY: JANIE FILMS COMPARISON: 04/11/2024 On the single image submitted there are 2 screws stabilizing the posterior calcaneal process. Interva l reduction of the fracture. XR/XR foot LT 2V [id number] IMPRESSION: Intraoperative imaging during fixation and reduction of the calcaneal fracture.
--- NOTE | 2024-04-11 12:56 | W.ED.LOWEXIN ---
Documented by User: LORI Sharp 04/11/24 15:55 HPI - Extremity Injury (Lower) General: Chief Complaint: Extremity Injury, Lower Stated Complaint: left foot/ankle pain s/p fall Time Seen by Provider: 04/11/24 12:55 Source: patient and family Mode of arrival: EMS Limitations: no limitations History of Present Illness: Patient is an 83-year-old female presents to ED today for evaluation of a left lower extremity injury that she sustained just prior to arrival. She states she was walking outside on a gravel road barefooted when she accidentally fell. She states she injured her left ankle/foot. Patient states she was able to get up following the fall and walk back to her home. She denies striking her head or LOC. No neck or back pain. Daughter accompanies patient and states that patient has severe baseline dementia. She resides at [facility] and reportedly fell while there. According to correction, patient was reaching for a closed door when it swung open causing her to fall forward. Fall was reportedly witnessed and nursing staff states she did not strike her head or lose consciousness. complaint: ankle injury Onset (ago): hour(s) Injury: Left: ankle Place: home Severity: moderate Relieving factors: immobilization Exacerbating factors: weight bearing, movement and palpation Context: fall Associated symptoms: Reports no associated symptoms Other symptoms: none Review of Systems Card: Denies: chest pain, palpitations, lightheadedness, syncope or pre-syncope Resp: Denies: dyspnea Musc: Reports: joint pain (L ankle) and joint swelling (L ankle) Neuro: Denies: headache(s), numbness in extremities, weakness in extremities or sensory changes FORMERLY [facility], [facility] ED PFSH: Medical History Hypertension Altered mental state Depression Hyponatremia Dementia Memory changes Surgical History Hx of hysterectomy Hx of appendectomy Hx of cholecystectomy Family History Father Cancer Hyperlipidemia Hypertension Mother Dementia Diabetes Hyperlipidemia Hypertension Other CAD (coronary artery disease) Denies family history of Chronic kidney disease (CKD) Suicide Bleeding disorder Lung disease Stroke Social History Smoking and tobacco/nicotine status: unknown if used tobacco/nicotine Alcohol intake: never Substance/Drug Use: never Adopted: No Household members: other Details: [facility] Housing: Assisted Living Facility Marital status: / Number of children: 3 Number of grandchildren: 9 Highest education level completed: High School Graduate Current occupational status: disabled Current gender identity: Female Physical Exam Const: COMMON NORMALS: no acute distress, average body habitus, patient oriented x3, no limitations, healthy appearing, alert and well nourished Extremity: COMMON NORMALS: capillary refill normal GENERAL: Yes normal exam except as noted LEFT LOWER EXTREMITY: Yes ankle joint (tenderness, swelling, and ecchymosis L ankle; deformity) Left ankle: Yes inspection (edema/ecchymosis) and Yes neurovascular exam (normal) and Yes foot & digits (tenderness, edema, deformity; ecchymosis) Left foot and digits: Yes neurovascular exam (normal) Neuro: COMMON NORMALS: patient oriented x3, moves all extremities, no focal motor deficits and no sensory deficits noted SENSORIUM/ORIENTATION: Yes alert Course Consultations: Consultation #1: Dr. Crawford-will take to OR later today Consultation #2: Dr. Alex-will admit Vital Signs: Vital signs: Vital Signs Temperature 98.8 F 04/11/24 16:29 Pulse Rate 69 04/11/24 16:29 Respiratory Rate 17 04/11/24 16:29 Blood Pressure 193/60 04/11/24 16:29 Pulse Oximetry 97 04/11/24 16:29 Oxygen Delivery Me thod Room Air 04/11/24 12:48 MDM - Extremity Injury (Lower) Medical Decision Making Patient is an 83-year-old female here along with her daughter who has guardianship over her due to her severe dementia here following a fall at [facility]. She has a significant extra-articular fracture of her left calcaneus that will require surgery. Dr. Crawford will plan on taking her to the OR later this evening. Dr. Alex will admit. Lab Data 04/11/24 14:16 04/11/24 14:16 Radiology Impressions Ankle X-Ray 04/11/24 13:00 IMPRESSION: Extra-articular avulsion fracture of the posterior process of the left calcaneus at the attachment of the Achilles tendon. Foot X-Ray 04/11/24 13:00 IMPRESSION: Extra-articular avulsion fracture of the posterior process of the left calcaneus at the attachment of the Achilles tendon. Chest X-Ray 04/11/24 13:57 IMPRESSION: No acute findings. Cervical Spine CT 04/11/24 14:39 IMPRESSION: No acute fracture subluxation. COMMENTS: Consistent with the [employer] [place] [employer]'s Incidental Findings Committee white paper (J Am Jolly Radiol 2015): In patients aged 35 years and older with an incidental thyroid nodule equal to or greater than 1.[address], MRI or extrathyroidal US, further evaluation with dedicated thyroid US is recommended for patients with normal life expectancy and without comorbidities. For smaller nodules without suspicious features, no further evaluation or follow up is recommended. Head CT 04/11/24 14:39 IMPRESSION: No acute intracranial abnormality. Laboratory Results WBC 13.49 10^3/uL (3.29-11.43) H 04/11/24 14:16 RBC 4.03 10^6/uL (3.85-5.65) 04/11/24 14:16 Hgb 12.90 g/dL (11.27-16.99) 04/11/24 14:16 Hct 39.0 % (36-47) 04/11/24 14:16 MCV 96.8 fl (85-98) 04/11/24 14:16 MCH 32.0 pg (27-33) 04/11/24 14:16 MCHC 33.1 g/dL (30-55) 04/11/24 14:16 RDW 12.6 % (12.1-15.1) 04/11/24 14:16 Plt Count 271 10^3/cmm (157-399) 04/11/24 14:16 MPV 8.8 fL (7.4-10.4) 04/11/24 14:16 Neut % (Auto) 70.8 % 04/11/24 14:16 Lymph % (Auto) 16.0 % 04/11/24 14:16 Island % (Auto) 10.7 % 04/11/24 14:16 Eos % (Auto) 1.7 % 04/11/24 14:16 Baso % (Auto) 0.4 % 04/11/24 14:16 Neut # (Auto) 9.53 10^3/uL (1.8-7.7) H 04/11/24 14:16 Lymph # (Auto) 2.2 10^3/uL (0.8-4.8) 04/11/24 14:16 Island # (Auto) 1.5 10^3/uL (0.2-0.9) H 04/11/24 14:16 Eos # (Auto) 0.2 10^3/uL (0.0-0.8) 04/11/24 14:16 Baso # (Auto) 0.1 10^3/uL (0.0-0.1) 04/11/24 14:16 Nucleated RBC % (auto) 0 % 04/11/24 14:16 Nucleated RBCs # 0.0 /100WBC 04/11/24 14:16 Sodium 135 mmol/L (136-145) L 04/11/24 14:16 Potassium 4.6 mmol/L (3.5-5.1) 04/11/24 14:16 Chloride 103 mmol/L (98-107) 04/11/24 14:16 Carbon Dioxide 21 mmol/L (22-29) L 04/11/24 14:16 Anion Gap 15.6 (5-19) 04/11/24 14:16 BUN 21 mg/dL (8-23) 04/11/24 14:16 Creatinine 1.2 mg/dL (0.5-0.9) H 04/11/24 14:16 GFR Calculation Not Reportable 04/11/24 14:16 Glucose 135 mg/dL (65-115) H 04/11/24 14:16 Calculated Osmolality 285 mOsm/kg (285-295) 04/11/24 14:16 Calcium 9.2 mg/dL (8.5-10.5) 04/11/24 14:16 Total Bilirubin 0.2 mg/dL (0.15-1.2) 04/11/24 14:16 AST 15 U/L (0-32) 04/11/24 14:16 ALT 18 U/L (0-33) 04/11/24 14:16 Alkaline Phosphatase 103 U/L (35-105) 04/11/24 14:16 NT-Pro-B Natriuret Pep 192 pg/mL (0-450) 04/11/24 14:16 Total Protein 7.2 g/dL (6.6-8.7) 04/11/24 14:16 Albumin 3.9 g/dL (3.5-5.2) 04/11/24 14:16 Globulin 3.3 g/dL (1.3-4.6) 04/11/24 14:16 Urine Color Yellow (Yellow) 04/11/24 15:35 Urine Appearance Clear (CLEAR) 04/11/24 15:35 Urine pH 6 (5-7) 04/11/24 15:35 Ur Specific [place] 1.015 (1.005-1.030) 04/11/24 15:35 Urine Protein Neg (Negative) 04/11/24 15:35 Urine Glucose (UA) Norm (Normal) 04/11/24 15:35 Urine Ketones Negative (Negative) 04/11/24 15:35 Urine Blood Neg (Negative) 04/11/24 15:35 Urine Nitrate Negative (Negative) 04/11/24 15:35 Urine Bilirubin Neg (Negative) 04/11/24 15:35 Urine Urobilinogen Norm mg/dL (Negative) 04/11/24 15:35 Ur Leukocyte Esterase Negative (Negative) 04/11/24 15:35 All radiology interpretation(s) finalized by discharge Discharge Plan Discharge Patient Disposition: Placed in Observation Admit Provider: Reynaldo Alex Clinical Impression: Closed fracture of left calcaneus Qualifiers: Encounter type: initial encounter Fracture morphology: other extra-articular Fracture alignment: displaced Qualified Code(s): S92.052A - Displaced other extraarticular fracture of left calcaneus, initial encounter for closed fracture Coding Level of Care Code ED Die Drawing Checker for Chg Fwd Documented by User: Grady Blanchard DO 04/11/24 17:40 HPI - Extremity Injury (Lower) General: Chief Complaint: Extremity Injury, Lower Stated Complaint: left foot/ankle pain s/p fall Time Seen by Provider: 04/11/24 12:55 PFSH ED PFSH: Medical History Hypertension Altered mental state Depression Hyponatremia Dementia Memory changes Surgical History Hx of hysterectomy Hx of appendectomy Hx of cholecystectomy Family History Father Cancer Hyperlipidemia Hypertension Mother Dementia Diabetes Hyperlipidemia Hypertension Other CAD (coronary artery disease) Denies family history of Chronic kidney disease (CKD) Suicide Bleeding disorder Lung disease Stroke Social History Smoking and tobacco/nicotine status: unknown if used tobacco/nicotine Alcohol intake: never Substance/Drug Use: never Adopted: No Household members: other Details: [facility] Housing: Assisted Living Facility Marital status: / Number of children: 3 Number of grandchildren: 9 Highest education level completed: High School Graduate Current occupational status: disabled Current gender identity: Female Course Vital Signs: Vital signs: Vital Signs Temperature 98.8 F 04/11/24 16:29 Pulse Rate 69 04/11/24 16:29 Respiratory Rate 17 04/11/24 16:29 Blood Pressure 193/60 04/11/24 16:29 Pulse Oximetry 97 04/11/24 16:29 Oxygen Delivery Me thod Room Air 04/11/24 12:48 MDM - Extremity Injury (Lower) Medical Decision Making Patient is an 83-year-old female here along with her daughter who has guardianship over her due to her severe dementia here following a fall at [facility]. She has a significant extra-articular fracture of her left calcaneus that will require surgery. Dr. Crawford will plan on taking her to the OR later this evening. Dr. Alex will admit. Chart reviewed and patient discussed with midlevel. Agree with assessment and plan. Lab Data 04/11/24 14:16 04/11/24 14:16 Radiology Impressions Ankle X-Ray 04/11/24 13:00 IMPRESSION: Extra-articular avulsion fracture of the posterior process of the left calcaneus at the attachment of the Achilles tendon. Foot X-Ray 04/11/24 13:00 IMPRESSION: Extra-articular avulsion fracture of the posterior process of the left calcaneus at the attachment of the Achilles tendon. Chest X-Ray 04/11/24 13:57 IMPRESSION: No acute findings. Cervical Spine CT 04/11/24 14:39 IMPRESSION: No acute fracture subluxation. COMMENTS: Consistent with the [place] [employer]'s Incidental Findings Committee white paper (J Am Jolly Radiol 2015): In patients aged 35 years and older with an incidental thyroid nodule equal to or greater than 1.[address], MRI or extrathyroidal US, further evaluation with dedicated thyroid US is recommended for patients with normal life expectancy and without comorbidities. For smaller nodules without suspicious features, no further evaluation or follow up is recommended. Head CT 04/11/24 14:39 IMPRESSION: No acute intracranial abnormality. Laboratory Results WBC 13.49 10^3/uL (3.29-11.43) H 04/11/24 14:16 RBC 4.03 10^6/uL (3.85-5.65) 04/11/24 14:16 Hgb 12.90 g/dL (11.27-16.99) 04/11/24 14:16 Hct 39.0 % (36-47) 04/11/24 14:16 MCV 96.8 fl (85-98) 04/11/24 14:16 MCH 32.0 pg (27-33) 04/11/24 14:16 MCHC 33.1 g/dL (30-55) 04/11/24 14:16 RDW 12.6 % (12.1-15.1) 04/11/24 14:16 Plt Count 271 10^3/cmm (157-399) 04/11/24 14:16 MPV 8.8 fL (7.4-10.4) 04/11/24 14:16 Neut % (Auto) 70.8 % 04/11/24 14:16 Lymph % (Auto) 16.0 % 04/11/24 14:16 Island % (Auto) 10.7 % 04/11/24 14:16 Eos % (Auto) 1.7 % 04/11/24 14:16 Baso % (Auto) 0.4 % 04/11/24 14:16 Neut # (Auto) 9.53 10^3/uL (1.8-7.7) H 04/11/24 14:16 Lymph # (Auto) 2.2 10^3/uL (0.8-4.8) 04/11/24 14:16 Island # (Auto) 1.5 10^3/uL (0.2-0.9) H 04/11/24 14:16 Eos # (Auto) 0.2 10^3/uL (0.0-0.8) 04/11/24 14:16 Baso # (Auto) 0.1 10^3/uL (0.0-0.1) 04/11/24 14:16 Nucleated RBC % (auto) 0 % 04/11/24 14:16 Nucleated RBCs # 0.0 /100WBC 04/11/24 14:16 Sodium 135 mmol/L (136-145) L 04/11/24 14:16 Potassium 4.6 mmol/L (3.5-5.1) 04/11/24 14:16 Chloride 103 mmol/L (98-107) 04/11/24 14:16 Carbon Dioxide 21 mmol/L (22-29) L 04/11/24 14:16 Anion Gap 15.6 (5-19) 04/11/24 14:16 BUN 21 mg/dL (8-23) 04/11/24 14:16 Creatinine 1.2 mg/dL (0.5-0.9) H 04/11/24 14:16 GFR Calculation Not Reportable 04/11/24 14:16 Glucose 135 mg/dL (65-115) H 04/11/24 14:16 Calculated Osmolality 285 mOsm/kg (285-295) 04/11/24 14:16 Calcium 9.2 mg/dL (8.5-10.5) 04/11/24 14:16 Total Bilirubin 0.2 mg/dL (0.15-1.2) 04/11/24 14:16 AST 15 U/L (0-32) 04/11/24 14:16 ALT 18 U/L (0-33) 04/11/24 14:16 Alkaline Phosphatase 103 U/L (35-105) 04/11/24 14:16 NT-Pro-B Natriuret Pep 192 pg/mL (0-450) 04/11/24 14:16 Total Protein 7.2 g/dL (6.6-8.7) 04/11/24 14:16 Albumin 3.9 g/dL (3.5-5.2) 04/11/24 14:16 Globulin 3.3 g/dL (1.3-4.6) 04/11/24 14:16 Urine Color Yellow (Yellow) 04/11/24 15:35 Urine Appearance Clear (CLEAR) 04/11/24 15:35 Urine pH 6 (5-7) 04/11/24 15:35 Ur Specific [place] 1.015 (1.005-1.030) 04/11/24 15:35 Urine Protein Neg (Negative) 04/11/24 15:35 Urine Glucose (UA) Norm (Normal) 04/11/24 15:35 Urine Ketones Negative (Negative) 04/11/24 15:35 Urine Blood Neg (Negative) 04/11/24 15:35 Urine Nitrate Negative (Negative) 04/11/24 15:35 Urine Bilirubin Neg (Negative) 04/11/24 15:35 Urine Urobilinogen Norm mg/dL (Negative) 04/11/24 15:35 Ur Leukocyte Esterase Negative (Negative) 04/11/24 15:35 Discharge Plan Discharge Patient Disposition: Placed in Observation Admit Provider: Reynaldo Alex Clinical Impression: Closed fracture of left calcaneus Qualifiers: Encounter type: initial encounter Fracture morphology: other extra-articular Fracture alignment: displaced Qualified Code(s): S92.052A - Displaced other extraarticular fracture of left calcaneus, initial encounter for closed fracture Coding Level of Care Code ED Die Drawing Checker for Jennifer Walton
--- NOTE | 2024-04-11 13:00 | XRR_ITS ---
PROCEDURE INFORMATION: Exam: XR Left Ankle Exam date and time: 04/11/2024 1:25 PM Age: 83 years old Clinical indication: Injury or trauma; Other: Lt ankle/foot pain; Patient HX: Lt posterior ankle/foot pain post fall TECHNIQUE: Imaging protocol: Radiologic exam of the left ankle. Views: 3 or more views. COMPARISON: CR (LOW EXM, ) 04/11/2024 1:25 PM FINDINGS: Bones/joints: Extra-articular avulsion fracture of the posterior process of the calcaneus at the attachment of the Achilles tendon. Diffuse osteopenia. Soft tissues: Soft tissue swelling. XR/XR ankle LT min 3V* [id number] IMPRESSION: Extra-articular avulsion fracture of the posterior process of the left calcaneus at the attachment of the Achilles tendon.
--- NOTE | 2024-04-11 13:00 | XRR_ITS ---
PROCEDURE INFORMATION: Exam: XR Left Foot Exam date and time: 04/11/2024 1:25 PM Age: 83 years old Clinical indication: Injury or trauma; Other: Lt foot/ankle pain; Patient HX: Lt posterior ankle/foot pain post fall TECHNIQUE: Imaging protocol: Radiologic exam of the left foot. Views: 3 or more views. COMPARISON: CR XR ankle LT min 3V* [id number] 04/11/2024 1:25 PM FINDINGS: Bones/joints: There is mild diffuse osteopenia. Extra-articular avulsion fracture of the posterior process of the calcaneus at the attachment of the Achilles tendon. Soft tissues: Diffuse soft tissue swelling. XR/XR foot LT min 3V* [id number] IMPRESSION: Extra-articular avulsion fracture of the posterior process of the left calcaneus at the attachment of the Achilles tendon.
--- NOTE | 2024-04-11 13:56 | ECG_ITS ---
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 Measurements Intervals [place] Rate: 66 P: -13 ME: 146 QRS: 51 QRSD: 90 T: 60 QT: 382 QTc: 403 Interpretive Statements SINUS RHYTHM Compared to ECG 03/02/2023 07:25:46 ST (T wave) deviation no longer present Electronically Signed On 04-11-2024 17:02:13 CDT by Ruby Ferreira M.D. [id number]
--- NOTE | 2024-04-11 13:57 | XRR_ITS ---
PROCEDURE INFORMATION: Exam: XR Chest Exam date and time: 04/11/2024 2:36 PM Age: 83 years old Clinical indication: Injury or trauma; Fall; Blunt trauma (contusions or hematomas); Additional info: Surgery TECHNIQUE: Imaging protocol: Radiologic exam of the chest. Views: 1 view. COMPARISON: CR XR chest 1V portable [id number] 03/01/2023 8:50 PM FINDINGS: Lungs: Unchanged bilateral calcified granulomas. No consolidation. Pleural spaces: Unremarkable. No pleural effusion. No pneumothorax. Heart/Mediastinum: Unremarkable. No cardiomegaly. Bones/joints: Mild degenerative changes. XR/XR chest 1V portable [id number] IMPRESSION: No acute findings.
[2024-04-11 14:22] LABS: Basophils # 0.1 10^3/uL (0.0-0.1); Basophils % 0.4 %; Eosinophils # 0.2 10^3/uL (0.0-0.8); Eosinophils % 1.7 %; Lymphocytes # 2.2 10^3/uL (0.8-4.8); Mean Corpuscular HGB Conc 33.1 g/dL (30-55); Mean Corpuscular Volume 96.8 fl (85-98); Mean Platelet Volume 8.8 fL (7.4-10.4); Monocytes # 1.5 10^3/uL (0.2-0.9); Monocytes % 10.7 %; Neutrophils # 9.53 10^3/uL (1.8-7.7); Neutrophils % 70.8 %; Nucleated Red Blood Cells % 0 %; Platelet Count 271 10^3/cmm (157-399); Red Blood Count 4.03 10^6/uL (3.85-5.65); Red Cell Distribution Width 12.6 % (12.1-15.1); White Blood Count 13.49 10^3/uL (3.29-11.43)
--- NOTE | 2024-04-11 14:39 | CTR_ITS ---
PROCEDURE INFORMATION: Exam: CT Cervical Spine Without Contrast Exam date and time: 04/11/2024 2:58 PM Age: 83 years old Clinical indication: Injury or trauma; Fall; Blunt trauma TECHNIQUE: Imaging protocol: Computed tomography of the cervical spine without contrast. Radiation optimization: All CT scans at this facility use at least one of these dose optimization techniques: automated exposure control; mA and/or kV adjustment per patient size (includes targeted exams where dose is matched to clinical indication); or iterative reconstruction. COMPARISON: CT cervical spin wo con* [id number] 12/02/2021 6:58 PM RADIATION DOSE METRICS: Total DLP (mGy-cm): 782.8 FINDINGS: Bones: No acute fracture. Normal alignment. No significant disc bulge or herniation. No severe spinal canal stenosis. Chronic marked degenerative disc and facet changes throughout the cervical spine with multilevel foramina compromise. Lungs: Lung apices are normal. Thyroid: Hypodense right thyroid nodule measuring 2.3 x 1.7 centimeters. Soft tissues: Unremarkable. CT/CT cervical spin wo con* [id number] IMPRESSION: No acute fracture subluxation. COMMENTS: Consistent with the [place] [employer]'s Incidental Findings Committee white paper (J Am Jolly Radiol 2015): In patients aged 35 years and older with an incidental thyroid nodule equal to or greater than 1.[address], MRI or extrathyroidal US, further evaluation with dedicated thyroid US is recommended for patients with normal life expectancy and without comorbidities. For smaller nodules without suspicious features, no further evaluation or follow up is recommended.
--- NOTE | 2024-04-11 14:39 | CTR_ITS ---
PROCEDURE INFORMATION: Exam: CT Head Without Contrast Exam date and time: 04/11/2024 2:58 PM Age: 83 years old Clinical indication: Injury or trauma; Fall; Blunt trauma (contusions or hematomas) TECHNIQUE: Imaging protocol: Computed tomography of the head without contrast. Radiation optimization: All CT scans at this facility use at least one of these dose optimization techniques: automated exposure control; mA and/or kV adjustment per patient size (includes targeted exams where dose is matched to clinical indication); or iterative reconstruction. COMPARISON: CT head wo con* [id number] 02/26/2023 9:28 AM RADIATION DOSE METRICS: Total DLP (mGy-cm): 1147.4 FINDINGS: Brain: There is mild diffuse cerebral atrophy present, consistent with this patient's age. . No hemorrhage. Bilateral ill-defined periventricular hypodensities consistent with mild chronic microvascular white matter ischemic changes. No mass effect. Cerebral ventricles: No ventriculomegaly. Paranasal sinuses: Visualized sinuses are unremarkable. No fluid levels. Mastoid air cells: Visualized mastoid air cells are well aerated. Bones: Unremarkable. No acute fracture. Soft tissues: Unremarkable. CT/CT head wo con* [id number] IMPRESSION: No acute intracranial abnormality.
--- NOTE | 2024-04-11 14:49 | P.HP_ITS ---
Providers/Chief Complaint 2 Primary Care Provider: Poli Lara DO Chief Complaint: left foot/ankle pain s/p fall History of Present Illness Joanna Wilson is a 83 year old female with a past medical history of dementia, peripheral arterial disease, hypertension, dementia, who presents to [facility] for a fall. Currently patient is alert to person, not to place, not to time, she follows commands, her only complaint is left ankle pain, I cannot get a reliable history from her, according to ER provider advises me that patient is from [facility], has dementia, she had a witnessed fall, patient was reaching for a close door when it is along open causing her to fall forward, it was a witnessed fall, no reported head trauma or loss of consciousness, Review of Systems 2 Card: Denies: chest pain Resp: Denies: dyspnea Medications/Allergies Home Medications Medication Instructions Recorded Confirmed Last Taken Type assisted living admission #1 ea 05/16/22 03/13/24 Unknown Rx aspirin 81 mg tablet,delayed 81 mg PO DAILY #90 tabs 05/18/22 03/13/24 Unknown Rx release (Adult Low Dose Aspirin) lisinopril 30 mg tablet 30 mg PO DAILY #30 tabs 06/06/22 03/13/24 Unknown Rx escitalopram oxalate 20 mg tablet 20 mg PO DAILY depression #90 tabs 03/01/23 03/13/24 Unknown Rx L-Theanine See Rx Instructions .Route .COMPLEX 03/02/23 03/13/24 Unknown History acetaminophen 500 mg tablet 500 mg PO DAILY 03/02/23 03/13/24 Unknown History diphenhydramine 25 2 tab PO BEDTIME 03/02/23 03/13/24 Unknown History mg-acetaminophen 500 mg tablet (Tylenol PM Extra Strength) melatonin 5 mg tablet See Rx Instructions .Route .COMPLEX 03/02/23 03/13/24 Unknown History hydralazine 10 mg tablet 10 mg PO BID #60 tabs 03/05/23 03/13/24 Unknown Rx metoprolol tartrate 25 mg tablet 25 mg PO BID #60 tabs 03/05/23 03/13/24 Unknown Rx front wheeled walker #1 ea 03/07/23 03/13/24 Unknown Rx cetirizine 10 mg tablet (Zyrtec) 10 mg PO DAILY PRN allergy 11/14/23 03/13/24 Unknown Rx symptoms #30 tabs spironolactone 25 mg tablet 25 mg PO DAILY swelling #30 tabs 01/30/24 03/13/24 Unknown Rx Allergies Allergy/AdvReac Type Severity Reaction Status Date / Time No Known Allergies Allergy Verified 03/13/24 08:11 PFSH Acute 2 PFSH: Medical History Hypertension Altered mental state Depression Hyponatremia Dementia Memory changes Surgical History Hx of hysterectomy Hx of appendectomy Hx of cholecystectomy Family History Father Cancer Hyperlipidemia Hypertension Mother Dementia Diabetes Hyperlipidemia Hypertension Other CAD (coronary artery disease) Denies family history of Chronic kidney disease (CKD) Suicide Bleeding disorder Lung disease Stroke Social History Smoking and tobacco/nicotine status: unknown if used tobacco/nicotine Alcohol intake: never Substance/Drug Use: never Adopted: No Household members: other Details: [facility] Housing: Assisted Living Facility Marital status: / Number of children: 3 Number of grandchildren: 9 Highest education level completed: High School Graduate Current occupational status: disabled Current gender identity: Female Vitals/I&O/Wt Last Vital Signs Temp 98.2 F 04/11/24 12:48 Pulse 70 04/11/24 12:48 Resp 18 04/11/24 12:48 BP 165/73 04/11/24 12:48 Pulse Ox 92 04/11/24 12:48 O2 Del Method Room Air 04/11/24 12:48 Physical Exam 2 Const: COMMON NORMALS: no acute distress ORIENTATION/CONSCIOUSNESS: Yes awake, Yes oriented to person and Yes confused; not oriented to place and not oriented to time Resp: COMMON NORMALS: normal respiratory effort, No retractions, No use of accessory muscles and clear to auscultation bilaterally AUSCULTATION: clear to auscultation bilaterally Cardio: COMMON NORMALS: no JVD, regular rate, regular rhythm, S1 normal heart sound present and S2 normal heart sound present RATE: regular rate RHYTHM: regular rhythm HEART SOUNDS: S1 normal heart sound present and S2 normal heart sound present GI: COMMON NORMALS: Normal to inspection, nondistended, normoactive bowel sounds present, Soft to palpation and non-tender Extremity: COMMON NORMALS: no calf tenderness and no pedal edema NARRATIVE EXTREMITY EXAM: Left ankle, erythema, swelling Neuro: OTHER: Does not follow neurologic testing, can follow simple commands such as smiling for me, squeezing my fingers bilaterally, Data 04/11/24 14:16 04/11/24 14:16 A&P Assessment and plan (1) Hypertension: (2) PAD (peripheral artery disease): (3) Hyponatremia: (4) Closed fracture of left calcaneus: Qualifiers: Encounter type: initial encounter Fracture alignment: displaced F racture morphology: other extra-articular Qualified Code(s): S92.052A - Displaced other extraarticular fracture of left calcaneus, initial encounter for closed fracture Plan Left calcaneal fracture ? Currently n.p.o. ? Plan on surgical intervention later on today ? Morphine for pain control Lovenox for DVT prophylaxis ? Podiatry service consulted ? Continue metoprolol, continue lisinopril, continue aspirin, spironolactone ? Spoke to patient's DPOA, patient's daughter, patient is DNR/DNI Attestations 2 Medical Necessity Statement*: Patient requires hospitalization for left calcaneal fracture, inpatient, greater than 2 midnights Diagnoses Hypertension I10 PAD (peripheral artery disease) I73.9 Hyponatremia E87.1 Closed fracture of left calcaneus S92.052A Encounter type: initial encounter Fracture alignment: displaced Fracture morphology: other extra-articular
[2024-04-11 15:11] LABS: NT Pro B Type Natriuretic Pept 192 pg/mL (0-450)
--- NOTE | 2024-04-11 15:24 | PM.CONSULT ---
Providers/Reason For Consult Consulting Physician/Specialty*: Isak Crawford D.P.M. Reason for Consult*: Tongue-tie fracture left calcaneus with displacement Primary Care Provider: Poli Lara DO History of Present Illness History of Present Illness Joanna Wilson is a 83 year old female fell this morning injuring her left heel. Patient has dementia and is a poor historian, resides at [facility]. Denies any other concomitant injuries. Has left heel pain. Last ate this morning at 9 AM eggs and mercado, injury occurred shortly after breakfast she has been n.p.o. since 9:00 AM. Review of Systems General: Reports: 10 or more systems reviewed and unremarkable except in HPI and below Const: Denies: fever(s) or chills Eyes: Denies: change in vision Card: Denies: chest pain or palpitations Resp: Denies: dyspnea or productive cough GI: Denies: abdominal pain, nausea or vomiting : Denies: flank pain Musc: Reports: extremity pain, joint pain, joint stiffness, limited range of motion and deformity Skin/Breast: Reports: skin tenderness; Denies: rash Neuro: Reports: difficulty walking; Denies: numbness in extremities, sensory changes or frequent falls Psych: Denies: suicidal ideation Roman/Lymph: Denies: easy bruising Medications/Allergies Home Medications Medication Instructions Recorded Confirmed Last Taken Type assisted living admission #1 ea 05/16/22 03/13/24 Unknown Rx aspirin 81 mg tablet,delayed 81 mg PO DAILY #90 tabs 05/18/22 03/13/24 Unknown Rx release (Adult Low Dose Aspirin) lisinopril 30 mg tablet 30 mg PO DAILY #30 tabs 06/06/22 03/13/24 Unknown Rx escitalopram oxalate 20 mg tablet 20 mg PO DAILY depression #90 tabs 03/01/23 03/13/24 Unknown Rx L-Theanine See Rx Instructions .Route .COMPLEX 03/02/23 03/13/24 Unknown History acetaminophen 500 mg tablet 500 mg PO DAILY 03/02/23 03/13/24 Unknown History diphenhydramine 25 2 tab PO BEDTIME 03/02/23 03/13/24 Unknown History mg-acetaminophen 500 mg tablet (Tylenol PM Extra Strength) melatonin 5 mg tablet See Rx Instructions .Route .COMPLEX 03/02/23 03/13/24 Unknown History hydralazine 10 mg tablet 10 mg PO BID #60 tabs 03/05/23 03/13/24 Unknown Rx metoprolol tartrate 25 mg tablet 25 mg PO BID #60 tabs 03/05/23 03/13/24 Unknown Rx front wheeled walker #1 ea 03/07/23 03/13/24 Unknown Rx cetirizine 10 mg tablet (Zyrtec) 10 mg PO DAILY PRN allergy 11/14/23 03/13/24 Unknown Rx symptoms #30 tabs spironolactone 25 mg tablet 25 mg PO DAILY swelling #30 tabs 01/30/24 03/13/24 Unknown Rx Allergies Allergy/AdvReac Type Severity Reaction Status Date / Time No Known Allergies Allergy Verified 03/13/24 08:11 PFSH Acute PFSH: Medical History (Updated 04/11/24 @ 15:31 by Isak Crawford DPM) Hypertension Altered mental state Depression Hyponatremia Memory changes Surgical History Hx of hysterectomy Hx of appendectomy Hx of cholecystectomy Family History Father Cancer Hyperlipidemia Hypertension Mother Dementia Diabetes Hyperlipidemia Hypertension Other CAD (coronary artery disease) Denies family history of Chronic kidney disease (CKD) Suicide Bleeding disorder Lung disease Stroke Social History Smoking and tobacco/nicotine status: unknown if used tobacco/nicotine Alcohol intake: never Substance/Drug Use: never Adopted: No Household members: other Details: [facility] Housing: Assisted Living Facility Marital status: / Number of children: 3 Number of grandchildren: 9 Highest education level completed: High School Graduate Current occupational status: disabled Current gender identity: Female Vitals/I&O/Wt Last Vital Signs Temp 98.2 F 04/11/24 12:48 Pulse 70 04/11/24 12:48 Resp 18 04/11/24 12:48 BP 165/73 04/11/24 12:48 Pulse Ox 92 04/11/24 12:48 O2 Del Method Room Air 04/11/24 12:48 Physical Exam Narrative: GENERAL: Patient is alert and oriented ?3 and in no acute distress. The following is a focused left lower extremity exam. 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 VASCULAR: Dorsalis pedis decreased, posterior tibial arteries decreased. Capillary refill time less than 5 seconds to the distal hallux bilaterally. Calf is supple and nontender proximally and distally. Focal edema left posterior heel. NEUROLOGICAL: Protective sensation diminished to light touch. DERMATOLOGICAL: Ecchymosis to the left posterior heel without wound, abrasion or laceration. No open wounds to the lower extremity. MUSCULOSKELETAL: Pain to palpation left calcaneus with tenting of the skin of the left posterior calcaneal tuberosity. No pain to palpation left ankle. CARDIOVASCULAR: S1, S2, normal rate, normal rhythm. Dorsalis pedis and posterior tibial arteries palpable. LUNGS: Clear to auscltation, no use of acessory muscles, no crackles or wheezes. Data 04/11/24 14:16 04/11/24 14:16 A&P Assessment and plan (1) Closed fracture of left calcaneus: Qualifiers: Encounter type: initial encounter Fracture alignment: displaced Fracture morphology: other extra-articular Qualified Code(s): S92.052A - Displaced other extraarticular fracture of left calcaneus, initial encounter for closed fracture Plan 83-year-old female presents with tongue type fracture of the left calcaneus 3 cm of displacement and compromise soft tissue requiring ORIF in efforts to avoid soft tissue necrosis. Patient has dementia and is a poor historian, resides at [facility] this morning after breakfast. Denies any other concomitant injuries. Last ate this morning at 9 AM eggs and mercado, injury occurred shortly after breakfast she has been n.p.o. since 9:00 AM. 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 I reviewed at length with the patient, the risks, potential complications, benefits, alternatives, expectations, and typical outcomes associated with the surgery. The risks and potential complications were explained in detail, including but not limited to infection, wound dehiscence or soft tissue complications, bleeding and hematoma, chronic edema, neuritis or nerve damage producing numbness or chronic pain, CRPS, failure to relieve pain or worsening pain, thick / painful / unsightly scar, limited motion / stiffness, malposition, delayed union, malunion, or nonunion, fracture, reaction to implants, anesthetic complications, venous thromboembolism, and deformity recurrence. I discussed the notion of no regrets with the patient as it pertains to complications and outcomes. The patient seemed to understand the nature of the proposed care and required convalescence. They asked appropriate questions, answered to their satisfaction. They are aware no guarantees can be made as to a satisfactory outcome and they understand there may be other possible unforeseen complications or outcomes not listed here that will be treated accordingly if they arise. There were no written or implied guarantees given to the patient. They gave informed consent to proceed. Remain n.p.o., nonweightbearing left foot. Plan for ORIF left calcaneus at 5:00, short leg casting, admission overnight for observation to evaluate neurovascular status of left lower extremity. Consult Attestations Medical Necessity Statement: Requires neurovascular monitoring overnight due to 3 cm displaced tongue type left calcaneal fracture Coding Level of Care Code Acute Code for Chg Fwd Diagnoses Closed fracture of left calcaneus S92.052A Encounter type: initial encounter Fracture alignment: displaced Fracture morphology: other extra-articular
[2024-04-11 15:46] LABS: Add Urine Microscopic? NO; Charge for UA Resulting for Rev
[2024-04-11 15:53] LABS: Urine Appearance Clear (CLEAR); Urine Color Yellow (Yellow)
[2024-04-11 15:54] LABS: Bilirubin Urine Neg (Negative); Blood Urine Neg (Negative); Glucose Urine UA Norm (Normal); Ketones Urine Negative (Negative); Leukocyte Esterase Urine Negative (Negative); Nitrate Urine Negative (Negative); Protein Urine Neg (Negative); Specific Gravity, Urine 1.015 (1.005-1.030); Urobilinogen Urine Norm (Negative); pH Urine 6 (5-7)
[2024-04-11] MEDS: morphine 4 mg/mL SDV 1 mL IVP (15:57)
[2024-04-11] MEDS: ondansetron 2 mg/ML SDV 2 mL 4 MG IVP (15:57)
[2024-04-11 16:09] LABS: Alanine Aminotransferase 18 U/L (0-33); Albumin Level 3.9 g/dL (3.5-5.2); Alkaline Phosphatase 103 U/L (35-105); Anion Gap 15.6 (5-19); Aspartate Amino Transferase 15 U/L (0-32); Blood Urea Nitrogen 21 mg/dL (8-23); Calcium 9.2 mg/dL (8.5-10.5); Carbon Dioxide 21 mmol/L (22-29); Chloride 103 mmol/L (98-107); Globulin 3.3 g/dL (1.3-4.6); Glucose 135 mg/dL (65-115); Osmolality Calculated 285 mOsm/kg (285-295); Potassium 4.6 mmol/L (3.5-5.1); Total Bilirubin 0.2 mg/dL (0.15-1.2); Total Protein 7.2 g/dL (6.6-8.7)
[2024-04-11 16:10] LABS: Sodium 135 mmol/L (136-145)
--- NOTE | 2024-04-11 16:34 | W.PM.OPSUD ---
Surgery/Procedure H&P Update DATE OF PROCEDURE: April 11, 2024 DATE H&P PERFORMED: 04/11/24 H&P UPDATE INFORMATION: I have reviewed H&P completed within last 30 days, I have examined patient prior to procedure, No changes to prior documentation and H&P is in [facility] EMR on date indicated PREOP DIAGNOSIS: Left calcaneal fracture PLANNED PROCEDURE: Operation Date: 04/11/24 17:10 Proposed Procedures p ORIF Calcaneous(Left) - Isak Crawford DPM
--- NOTE | 2024-04-11 16:50 | ANES.PREANE2 ---
Pre-Anesthetic Assessment Height/Weight: Height 1.6 m Temp Pulse Resp BP Pulse Ox O2 Del Method 98.8 F 69 17 193/60 97 Room Air 04/11/24 16:29 04/11/24 16:29 04/11/24 16:29 04/11/24 16:29 04/11/24 16:29 04/11/24 12:48 Preop Diagnosis: Left calcaneal fracture Operation Date: 04/11/24 17:10 Proposed Procedures p ORIF Calcaneous(Left) - Isak Crawford DPM Familial anesthetic complications: None Was Beta Octavia taken within 24 hours: N/A Was Clonidine taken within 24 hours: N/A Last intake: 09 Social No alcohol and No tobacco Exam alert, oriented x 3, clear to auscultation bilaterally and regular rate & rhythm Airway Mallampati: Class II Dentition: false CV/HEM Hypertension and Peripheral Vascular Disease Neuropsych Dementia Anesthetic Plan ASA status: 3 Anesthesia: General Risk of > 500 ml blood loss (7ml/kg in children): No Medications/Allergies Home Medications Medication Instructions Recorded Confirmed Last Taken Type assisted living admission #1 ea 05/16/22 03/13/24 Unknown Rx aspirin 81 mg tablet,delayed 81 mg PO DAILY #90 tabs 05/18/22 03/13/24 Unknown Rx release (Adult Low Dose Aspirin) lisinopril 30 mg tablet 30 mg PO DAILY #30 tabs 06/06/22 03/13/24 Unknown Rx escitalopram oxalate 20 mg tablet 20 mg PO DAILY depression #90 tabs 03/01/23 03/13/24 Unknown Rx L-Theanine See Rx Instructions .Route .COMPLEX 03/02/23 03/13/24 Unknown History acetaminophen 500 mg tablet 500 mg PO DAILY 03/02/23 03/13/24 Unknown History diphenhydramine 25 2 tab PO BEDTIME 03/02/23 03/13/24 Unknown History mg-acetaminophen 500 mg tablet (Tylenol PM Extra Strength) melatonin 5 mg tablet See Rx Instructions .Route .COMPLEX 03/02/23 03/13/24 Unknown History hydralazine 10 mg tablet 10 mg PO BID #60 tabs 03/05/23 03/13/24 Unknown Rx metoprolol tartrate 25 mg tablet 25 mg PO BID #60 tabs 03/05/23 03/13/24 Unknown Rx front wheeled walker #1 ea 03/07/23 03/13/24 Unknown Rx cetirizine 10 mg tablet (Zyrtec) 10 mg PO DAILY PRN allergy 11/14/23 03/13/24 Unknown Rx symptoms #30 tabs spironolactone 25 mg tablet 25 mg PO DAILY swelling #30 tabs 01/30/24 03/13/24 Unknown Rx Allergies Allergy/AdvReac Type Severity Reaction Status Date / Time No Known Allergies Allergy Verified 03/13/24 08:11 [facility] Anesthesia Medical History Hypertension Altered mental state Depression Hyponatremia Dementia Memory changes Surgical History Hx of hysterectomy Hx of appendectomy Hx of cholecystectomy Family History Father Cancer Hyperlipidemia Hypertension Mother Dementia Diabetes Hyperlipidemia Hypertension Other CAD (coronary artery disease) Denies family history of Chronic kidney disease (CKD) Suicide Bleeding disorder Lung disease Stroke Social History Smoking and tobacco/nicotine status: unknown if used tobacco/nicotine Alcohol intake: never Substance/Drug Use: never Adopted: No Household members: other Details: [facility] Housing: Assisted Living Facility Marital status: / Number of children: 3 Number of grandchildren: 9 Highest education level completed: High School Graduate Current occupational status: disabled Current gender identity: Female Data Anesthesia 04/11/24 14:16 04/11/24 14:16 Short CBC 04/11/24 Range/Units 14:16 WBC 13.49 H (3.29-11.43) 10^3/uL Hgb 12.90 (11.27-16.99) g/dL Hct 39.0 (36-47) % MCV 96.8 (85-98) fl Plt Count 271 (157-399) 10^3/cmm Neut % (Auto) 70.8 % Neut # (Auto) 9.53 H (1.8-7.7) 10^3/uL BMP 04/11/24 14:16 Sodium 135 L Potassium 4.6 Chloride 103 Carbon Dioxide 21 L BUN 21 Creatinine 1.2 H Glucose 135 H Calcium 9.2 Cardiac Enzymes 04/11/24 Range/Units 14:16 NT-Pro-B Natriuret Pep 192 (0-450) pg/mL Liver Function 04/11/24 Range/Units 14:16 Total Bilirubin 0.2 (0.15-1.2) mg/dL AST 15 (0-32) U/L ALT 18 (0-33) U/L Alkaline Phosphatase 103 (35-105) U/L Albumin 3.9 (3.5-5.2) g/dL Urine 04/11/24 Range/Units 15:35 Urine Color Yellow (Yellow) Urine Appearance Clear (CLEAR) Urine pH 6 (5-7) Ur Specific Cedar 1.015 (1.005-1.030) Urine Protein Neg (Negative) Urine Glucose (UA) Norm (Normal) Urine Ketones Negative (Negative) Urine Nitrate Negative (Negative) Urine Bilirubin Neg (Negative) Ur Leukocyte Esterase Negative (Negative) Cardiac Studies: No Data to Display
[2024-04-11] MEDS: BUPivacaine 0.5% INJ 30 mL INJECTION (16:55)
[2024-04-11] MEDS: ceFAZolin 2,000 mg SDV 2000 MG IVP (16:55)
--- NOTE | 2024-04-11 18:00 | P.OP_ITS ---
Operative Report Date of procedure: April 11, 2024 Pre-op diagnosis: Left calcaneal fracture Post-op diagnosis: Left calcaneal fracture Procedure done: Open reduction internal fixation left calcaneal fracture. CPT code 89376 Implants: [place] 6.5 mm cannulated screw partially threaded x 2 3-0 nylon Specimens removed/disposition: No specimens Pathology: No pathology Surgeon: Isak Crawford DPM Automatic Typewriter Inspector: Chandra Estimated blood loss: 5 mL 32 minutes IV fluids: See intraoperative documentation Urine output: See intraoperative documentation Complications: No complications Brief History: 83-year-old female presents with tongue type fracture of the left calcaneus 3 cm of displacement and compromise soft tissue requiring ORIF in efforts to avoid soft tissue necrosis. Patient has dementia and is a poor historian[facility]. Denies any other concomitant injuries. Last ate this morning at 9 AM eggs and mercado, injury occurred shortly after breakfast she has been n.p.o. since 9:00 AM. 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 I reviewed at length with the patient, the risks, potential complications, benefits, alternatives, expectations, and typical outcomes associated with the surgery. The risks and potential complications were explained in detail, including but not limited to infection, wound dehiscence or soft tissue complications, bleeding and hematoma, chronic edema, neuritis or nerve damage producing numbness or chronic pain, CRPS, failure to relieve pain or worsening pain, thick / painful / unsightly scar, limited motion / stiffness, malposition, delayed union, malunion, or nonunion, fracture, reaction to implants, anesthetic complications, venous thromboembolism, and deformity recurrence. I discussed the notion of no regrets with the patient as it pertains to complications and outcomes. The patient seemed to understand the nature of the proposed care and required convalescence. They asked appropriate questions, answered to their satisfaction. They are aware no guarantees can be made as to a satisfactory outcome and they understand there may be other possible unforeseen complications or outcomes not listed here that will be treated accordingly if they arise. There were no written or implied guarantees given to the patient. They gave informed consent to proceed. Remain n.p.o., nonweightbearing left foot. Plan for ORIF left calcaneus at 5:00, short leg casting, admission overnight for observation to evaluate neurova scular status of left lower extremity. Procedure: Under mild sedation patient was brought to the operating room and placed onto the operating table in supine position. A timeout was performed. Anesthesia was administered by the anesthesia service. Local anesthesia injected by myself consisting of 30 cc of 0.5% Marcaine plain and a V-block fashion to the posterior distal left leg proximal to the planned operative site. Well-padded pneumatic tourniquet was applied to the left calf. Left lower extremity was scrubbed, prepped and draped utilizing normal aseptic technique. Left foot and ankle were exanguinated with an Esmarch bandage and tourniquet inflated to 250 mmHg. Attention was directed to the left posterior calcaneus where a linear longitudinal incision was made over the central posterior heel, fracture was identified and mobilized this was then reduced utilizing [id number]-[id number] fracture reduction clamp, confirming AP, oblique and lateral views the fracture was reduced and Achilles down the length. This was temporarily held in place and stabilized with fracture reduction forceps. The fracture was then fixated utilizing standard AO technique with lag screw technique, fixation achieved with [place] 6.5 mm headed, cannulated and partially-threaded screws with excellent bony apposition and compression noted this fixation was perpendicular to the fracture with excellent bony apposition and compression noted. Bone reduction clamps were removed and the fracture fragment remained stable, gentle loading with dorsiflexion to neutral demonstrated stable fixation without displacement. The incision was irrigated with copious amounts of sterile skin solution. The incision was closed utilizing 3-0 nylon. The incision was dressed with Adaptic, sterile 4 x 4's, Kerlix and application of short leg cast with ankle joint in equinus position to maintain minimal resting tension on the fracture. Tourniquet was then deflated and a prompt hyperemic response was noted to the distal digits of the left foot. Patient tolerated the procedure and anesthesia well and was transferred to the PACU with vital signs stable and vascular status intact. Following a period of postoperative monitoring she will be transferred to [facility] to be observed overnight to evaluate neurovascular status.
[2024-04-11] MEDS: morphine 4 mg/mL SDV 1 mL 2 MG IVP (19:40)
[2024-04-11 19:43] LABS: Cholesterol 189 mg/dL (0-200); HDL Cholesterol 42 mg/dL (60-100); LDL Cholesterol Calculated 123 mg/dL (50-129); LDL HDL Ratio 2.93 RATIO (0.00-3.22); Thyroid Stimulating Hormone 1.75 uIU/mL (0.27-4.20); Triglycerides 118 mg/dL (0-150)
[2024-04-11] MEDS: metoprolol tartrate 25 mg Tablet PO (19:51)
[2024-04-11] MEDS: hyDRALAzine 10 mg Tablet PO (19:51)
[2024-04-11] MEDS: pantoprazole 40 mg SDV IVP (19:52)
--- NOTE | 2024-04-11 20:30 | ANE.PACU2 ---
Inpatient post-anesthesia follow up: Airway intact: Yes Vital signs: Temperature 97.5 F Pulse Rate 75 Respiratory Rate 18 Blood Pressure 154/71 Pulse Oximetry 94 Oxygen Delivery Me thod Room Air Oxygen Flow Rate 6 Fraction of Inspir ed Oxygen Hydration adequate: Yes Nausea and vomiting: No Pain level: 1 Mental status: Baseline
[2024-04-11] MEDS: enoxaparin 40 mg/0.4 mL Syringe SUBCUT (21:19)
[2024-04-11 22:08] LABS: Estmated Average Glucose 117; Hemoglobin A1C 5.7 % (4.0-6.0)
[2024-04-11] MEDS: sodium chloride 0.9% 1,000 ML 75 ML IV (23:31)
[2024-04-12] VITALS (13 sets, daily range): BP systolic 92–171; BP diastolic 52–76; PULSE 58–67; RESP 16–21; TEMP 36.4–36.8; O2SAT 93–95
[2024-04-12 03:59] LABS: Basophils % 0.1 %; Hematocrit 37.8 % (36-47); Lymphocytes # 1.3 10^3/uL (0.8-4.8); Lymphocytes % 12.8 %; Mean Corpuscular HGB Conc 32.8 g/dL (30-55); Mean Corpuscular Hemoglobin 32.5 pg (27-33); Mean Platelet Volume 9.5 fL (7.4-10.4); Monocytes # 0.8 10^3/uL (0.2-0.9); Monocytes % 7.8 %; Neutrophils # 8.12 10^3/uL (1.8-7.7); Neutrophils % 78.9 %; Nucleated Red Blood Cells % 0 %; Platelet Count 275 10^3/cmm (157-399); Red Blood Count 3.82 10^6/uL (3.85-5.65); Red Cell Distribution Width 12.6 % (12.1-15.1); White Blood Count 10.29 10^3/uL (3.29-11.43)
[2024-04-12 04:14] LABS: Alanine Aminotransferase 173 U/L (0-33); Albumin Level 3.7 g/dL (3.5-5.2); Alkaline Phosphatase 107 U/L (35-105); Blood Urea Nitrogen 14 mg/dL (8-23); Carbon Dioxide 21 mmol/L (22-29); Chloride 102 mmol/L (98-107); Creatinine Clr Calc Pharmacy 50.9956; Globulin 2.9 g/dL (1.3-4.6); Glucose 146 mg/dL (65-115); Osmolality Calculated 279 mOsm/kg (285-295); Sodium 133 mmol/L (136-145); Total Bilirubin 0.5 mg/dL (0.15-1.2); Total Protein 6.6 g/dL (6.6-8.7)
[2024-04-12 04:27] LABS: Anion Gap 15.5 (5-19); Aspartate Amino Transferase 135 U/L (0-32); Potassium 5.5 mmol/L (3.5-5.1)
--- NOTE | 2024-04-12 06:18 | PC.NURSE ---
pt confused mostly in the beginning of the night after family left. pt kept trying to get out of bed and pull at catheter. pt was finally able to fall asleep and slept through the night after redirection.
--- NOTE | 2024-04-12 07:38 | P.PN_ITS ---
Subjective 2 Subjective: Patient seen bedside this a.m., she is in good spirits, denies any pain to the left lower extremity. Tolerating regular diet. Patient denies any subjective nausea, vomiting, fever, chills, shortness of breath or chest pain. Vitals/I&O/Wt Last Vital Signs Temp 97.6 F 04/12/24 04:00 Pulse 58 L 04/12/24 06:00 Resp 16 04/12/24 04:00 BP 165/76 04/12/24 04:00 Pulse Ox 95 04/12/24 04:00 O2 Del Method Room Air 04/12/24 04:00 O2 Flow Rate 6 04/11/24 18:01 04/11/24 04/12/24 04/12/24 22:59 06:59 14:59 Intake Total 0 / 0 Output Total 205 / 205 1000 / 1205 Balance -205 / -205 -1000 / -1205 Weight last 48 hrs Weight 219 lb 7 oz Weight 216 lb 4.8 oz Physical Exam 2 Narrative: GENERAL: Patient is alert and oriented ?3 and in no acute distress. The following is a focused left lower extremity exam. VASCULAR: Dorsalis pedis and posterior tibial arteries palpable. Capillary refill time less than 3 seconds to the distal hallux bilaterally. Calf is supple and nontender proximally and distally. Mild edema at the operative site consistent with postoperative course. NEUROLOGICAL: Protective sensation diminished to light touch. DERMATOLOGICAL: Short leg cast intact, brisk cap refill to the left toes 1 through 5. Able to wiggle toes on command. MUSCULOSKELETAL: Tenderness about the operative site consistent with postoperative course. Further musculoskeletal exam deferred due to postoperative state. Data 04/12/24 03:07 04/12/24 03:07 A&P Assessment and plan (1) Closed fracture of left calcaneus: Qualifiers: Encounter type: initial encounter Fracture alignment: displaced F racture morphology: other extra-articular Qualified Code(s): S92.052A - Displaced other extraarticular fracture of left calcaneus, initial encounter for closed fracture Plan 83-year-old female presents with tongue type fracture of the left calcaneus 3 cm of displacement and compromised soft tissue. Status post ORIF left calcaneus performed 04/11/2024 no intraoperative complications. Short leg cast is clean, dry and intact Baseline neurovascular status to the left foot Strict nonweightbearing left foot for 8 weeks Patient okay for transfer back to [facility] at this time will require her to remain nonweightbearing to left foot. Will follow-up outpatient in podiatry clinic with Dr. Goodman Fernandez Attestations 2 Medical Necessity Statement*: Admitted for pain control and neurovascular monitoring overnight following procedure from ORIF of left calcaneal fracture performed 04/11/2024. Coding Level of Care Code Acute Code for [facility] Diagnoses Closed fracture of left calcaneus S92.052A Encounter type: initial encounter Fracture alignment: displaced Fracture morphology: other extra-articular
[2024-04-12] MEDS: escitalopram 10 mg Tablet 20 MG PO (08:27)
[2024-04-12] MEDS: spironolactone 25 mg Tablet PO (08:27)
[2024-04-12] MEDS: hyDRALAzine 10 mg Tablet PO (08:27)
[2024-04-12] MEDS: metoprolol tartrate 25 mg Tablet PO (08:28)
[2024-04-12] MEDS: lisinopril 20 mg Tablet 30 MG PO (08:28)
[2024-04-12] MEDS: aspirin 81 mg EC Tablet PO (08:29)
--- NOTE | 2024-04-12 09:12 | USR_ITS ---
PROCEDURE INFORMATION: Exam: US Abdomen, Limited; Right Upper Quadrant Exam date and time: 04/12/2024 11:10 AM Age: 83 years old Clinical indication: Screening exam; Other: Liver and gallbladder; Prior surgery; Surgery date: 6+ months; Surgery type: Unsure of dates. Gallbladder removed. TECHNIQUE: Imaging protocol: Real time ultrasound of the abdomen with image documentation. Limited exam focused on the right upper quadrant. COMPARISON: CT chest w con* [id number] 09/30/2017 9:51 AM FINDINGS: Liver: The liver is mildly diffusely increased in echogenicity raising concern for fatty infiltration. Gallbladder: The gallbladder has been surgically removed. Biliary ducts: Common bile duct is normal in caliber measuring 4 mm. Pancreas: Visualized pancreas is unremarkable. Right kidney: Normal. No mass. No hydronephrosis. US/US abdomen limited 39312 IMPRESSION: The liver is mildly diffusely increased in echogenicity raising concern for fatty infiltration.
[2024-04-12] MEDS: morphine 4 mg/mL SDV 1 mL 2 MG IVP (15:10)
--- NOTE | 2024-04-12 15:54 | P.PN_ITS ---
Vitals/I&O/Wt Last Vital Signs Temp 97.5 F L 04/12/24 12:00 Pulse 61 04/12/24 12:00 Resp 20 H 04/12/24 15:10 BP 117/69 04/12/24 12:00 Pulse Ox 95 04/12/24 15:10 O2 Del Method Room Air 04/12/24 07:38 O2 Flow Rate 6 04/11/24 18:01 04/12/24 04/12/24 04/12/24 06:59 14:59 22:59 Intake Total 480 / 480 Output Total 1000 / 1205 Balance -1000 / -1205 480 / 480 Weight last 48 hrs Weight 99.535 kg Weight 98.112 kg Physical Exam 2 Const: COMMON NORMALS: no acute distress ORIENTATION/CONSCIOUSNESS: Yes awake, Yes oriented to person and Yes confused; not oriented to place and not oriented to time Resp: COMMON NORMALS: normal respiratory effort, No retractions, No use of accessory muscles and clear to auscultation bilaterally AUSCULTATION: clear to auscultation bilaterally Cardio: COMMON NORMALS: regular rate, regular rhythm, S1 normal heart sound present and S2 normal heart sound present RATE: regular rate RHYTHM: r egular rhythm HEART SOUNDS: S1 normal heart sound present and S2 normal heart sound present GI: COMMON NORMALS: Normal to inspection, nondistended, normoactive bowel sounds present and non-tender Extremity: COMMON NORMALS: no pedal edema OTHER: Left lower extremity in a cast Neuro: SENSORIUM/ORIENTATION: Yes oriented to person, No oriented to place and No oriented to time Psych: COMMON NORMALS: mental status grossly normal Data 04/12/24 03:07 04/12/24 03:07 A&P Assessment and plan (1) Hypertension: (2) PAD (peripheral artery disease): (3) Hyponatremia: (4) Closed fracture of left calcaneus: Qualifiers: Encounter type: initial encounter Fracture alignment: displaced F racture morphology: other extra-articular Qualified Code(s): S92.052A - Displaced other extraarticular fracture of left calcaneus, initial encounter for closed fracture Plan Left calcaneal fracture ? Status post surgical invention, currently in a cast ? Will work on placing to custodial facility due to increased needs y ? Morphine for pain control ? Transaminitis, ultrasound abdomen Lovenox for DVT prophylaxis ? Podiatry service consulted ? Continue metoprolol, continue lisinopril, continue aspirin, spironolactone ? Spoke to patient's DPOA, patient's daughter, patient is DNR/DNI Attestations 2 Medical Necessity Statement*: Patient requires hospitalization for left calcaneal fracture status post surgical invention, Diagnoses Hypertension I10 PAD (peripheral artery disease) I73.9 Hyponatremia E87.1 Closed fracture of left calcaneus S92.052A Encounter type: initial encounter Fracture alignment: displaced Fracture morphology: other extra-articular
[2024-04-12 17:55] LABS: Anion Gap 14.6 (5-19); Blood Urea Nitrogen 19 mg/dL (8-23); Calcium 8.9 mg/dL (8.5-10.5); Carbon Dioxide 23 mmol/L (22-29); Chloride 101 mmol/L (98-107); Creatinine Clr Calc Pharmacy 51.4062; Glucose 116 mg/dL (65-115); Osmolality Calculated 281 mOsm/kg (285-295); Potassium 4.6 mmol/L (3.5-5.1); Sodium 134 mmol/L (136-145)
[2024-04-12] MEDS: pantoprazole 40 mg SDV IVP (18:55)
--- NOTE | 2024-04-12 19:46 | PC.NURSE ---
Notified Dr. Alex of patient blood pressure 100/52 automatic and 992/52 manual. Hold for now recheck in an hour. Retimed for 2099. Night nurse aware of conversation with Dr. Alex.
[2024-04-12] MEDS: enoxaparin 40 mg/0.4 mL Syringe SUBCUT (20:56)
[2024-04-13] VITALS (7 sets, daily range): BP systolic 119–154; BP diastolic 59–73; PULSE 58–75; RESP 15–18; TEMP 36.3–36.7; O2SAT 94–95
[2024-04-13] MEDS: lisinopril 20 mg Tablet 30 MG PO (09:26)
[2024-04-13] MEDS: spironolactone 25 mg Tablet PO (09:26)
[2024-04-13] MEDS: metoprolol tartrate 25 mg Tablet PO ×3 (09:27→18:00)
[2024-04-13] MEDS: aspirin 81 mg EC Tablet PO (09:27)
[2024-04-13] MEDS: escitalopram 10 mg Tablet 20 MG PO (09:27)
[2024-04-13] MEDS: hyDRALAzine 10 mg Tablet PO ×3 (09:27→18:00)
--- NOTE | 2024-04-13 10:00 | PC.CHAP ---
Pastoral Care Encounter/Spiritual Assessment Type of Contact [] Declined certified athletic trainer visit [] Patient/Family/Request visit [] Outpatient visit [] Follow-up visit [] Physician referral [] Code/Alert [x] Routine visit [] Staff referral [] Actively dying [] Patient sleeping [] Family support [] [] Out of room [] Palliative care [] [] Receiving care in room [] Pre-surgical visit [] Trauma [] Long length of stay [] ICU visit [] Other: Relational/Emotional Strength [] Patient feels connected with others/family/visitors/staff [] Distress [] Loneliness/isolation [] Abandonment Spirituality of Patient [x] Person of Pat [] Attends Caodaism of their Pat [x] Believes in Prayer [] Reads Bible or Tenriism materials [] There are Spiritual issues to be addressed Independent Distributor Interventions [x] Prayer [x] Active listening [] Non-anxious presence [] Spiritual/emotional support [] Crisis/trauma care [] Spiritual counseling [] Bereavement support [] Provided bereavement packet [x] Provided Bible/devotional materials [] Provided toy/stuffed animal, coloring book to patient or family member [] Provided Communion [] Anointing/Rochelle [] Salvation [x] Completed spiritual assessment [] Other: Impact on Illness or Injury [] Angry [] Fearful [] Anxious [] Often cries [] Exhaustion [] Unable to work [] Unable to attend scientology [] Unable to walk/stand [] Unable to read [] Unable to drive [] Unable to eat/drink [] Unable to sleep [] Unable to be with family [] Patient intubated [] Other: Summary Time spent with patient 10 min
[2024-04-13] MEDS: HYDROcodone-acetaminophen 5-325 mg Tablet 1 TAB PO ×2 (11:27→17:58)
--- NOTE | 2024-04-13 13:51 | P.PN_ITS ---
Subjective 2 Subjective: Patient was seen this morning, she has no complaints, no fevers, chills, no cough, no pain complaints Vitals/I&O/Wt Last Vital Signs Temp 97.9 F 04/13/24 12:00 Pulse 60 04/13/24 12:00 Resp 16 04/13/24 12:00 BP 119/59 04/13/24 12:00 Pulse Ox 94 04/13/24 12:00 O2 Del Method Room Air 04/13/24 03:57 O2 Flow Rate 6 04/11/24 18:01 04/12/24 04/13/24 04/13/24 22:59 06:59 14:59 Intake Total 920 / 1400 480 / 480 Output Total 550 / 550 600 / 1150 Balance 370 / 850 -600 / 250 480 / 480 Weight last 48 hrs Weight 118.705 kg Weight 99.535 kg Weight 98.112 kg Physical Exam 2 Const: COMMON NORMALS: no acute distress ORIENTATION/CONSCIOUSNESS: Yes awake and Yes oriented to person Resp: COMMON NORMALS: normal respiratory effort, No retractions, No use of accessory muscles and clear to auscultation bilaterally AUSCULTATION: clear to auscultation bilaterally Cardio: COMMON NORMALS: regular rate, regular rhythm, S1 normal heart sound present and S2 normal heart sound present RATE: regular rate RHYTHM: r egular rhythm HEART SOUNDS: S1 normal heart sound present and S2 normal heart sound present GI: COMMON NORMALS: Normal to inspection, nondistended, normoactive bowel sounds present and non-tender Extremity: COMMON NORMALS: no pedal edema NARRATIVE EXTREMITY EXAM: Lower extremity in the cast Neuro: SENSORIUM/ORIENTATION: Yes oriented to person Data 04/12/24 03:07 04/12/24 17:05 A&P Assessment and plan (1) Hypertension: (2) PAD (peripheral artery disease): (3) Hyponatremia: (4) Closed fracture of left calcaneus: Qualifiers: Encounter type: initial encounter Fracture alignment: displaced F racture morphology: other extra-articular Qualified Code(s): S92.052A - Displaced other extraarticular fracture of left calcaneus, initial encounter for closed fracture Plan Left calcaneal fracture ? Status post surgical invention, currently in a cast ? Will work on placing to [facility] facility due to increased needs ? Hydrocodone for pain control ? Lovenox for DVT prophylaxis ? Transaminitis, ultrasound abdomen, no acute findings ? Podiatry service consulted ? Continue metoprolol, continue lisinopril, continue aspirin, spironolactone ? Spoke to patient's DPOA, patient's daughter, patient is DNR/DNI Attestations 2 Medical Necessity Statement*: Patient requires hospitalization for calcaneal fracture, Diagnoses Hypertension I10 PAD (peripheral artery disease) I73.9 Hyponatremia E87.1 Closed fracture of left calcaneus S92.052A Encounter type: initial encounter Fracture alignment: displaced Fracture morphology: other extra-articular
--- NOTE | 2024-04-13 15:42 | P.PN_ITS ---
Subjective 2 Subjective: Patient seen bedside this a.m., denies any acute events overnight. Surgical dressing and cast to the left lower extremity is clean, dry and intact. Able to wiggle toes on command. Vitals/I&O/Wt Last Vital Signs Temp 97.9 F 04/13/24 12:00 Pulse 60 04/13/24 12:00 Resp 16 04/13/24 12:00 BP 119/59 04/13/24 12:00 Pulse Ox 94 04/13/24 12:00 O2 Del Method Room Air 04/13/24 03:57 O2 Flow Rate 6 04/11/24 18:01 04/13/24 04/13/24 04/13/24 06:59 14:59 22:59 Intake Total 480 / 480 Output Total 600 / 1150 Balance -600 / 250 480 / 480 Weight last 48 hrs Weight 261 lb 11.2 oz Weight 219 lb 7 oz Weight 216 lb 4.8 oz Physical Exam 2 Narrative: GENERAL: Patient is alert and oriented ?3 and in no acute distress. The following is a focused left lower extremity exam. VASCULAR: Dorsalis pedis and posterior tibial arteries palpable. Capillary refill time less than 3 seconds to the distal hallux bilaterally. Calf is supple and nontender proximally and distally. Mild edema at the operative site consistent with postoperative course. NEUROLOGICAL: Protective sensation diminished to light touch. DERMATOLOGICAL: Short leg cast intact, brisk cap refill to the left toes 1 through 5. Able to wiggle toes on command. MUSCULOSKELETAL: Tenderness about the operative site consistent with postoperative course. Further musculoskeletal exam deferred due to postoperative state. Data 04/12/24 03:07 04/12/24 17:05 A&P Assessment and plan (1) Closed fracture of left calcaneus: Qualifiers: Encounter type: initial encounter Fracture alignment: displaced F racture morphology: other extra-articular Qualified Code(s): S92.052A - Displaced other extraarticular fracture of left calcaneus, initial encounter for closed fracture Plan 83-year-old female presents with tongue type fracture of the left calcaneus 3 cm of displacement and compromised soft tissue. Status post ORIF left calcaneus performed 04/11/2024 no intraoperative complications. Short leg cast is clean, dry and intact Baseline neurovascular status to the left foot Strict nonweightbearing left foot for 8 weeks Podiatry will follow. Will also be following up outpatient. Attestations 2 Medical Necessity Statement*: Joanna Wilson sustained a tongue-type fracture to her left calcaneus and underwent open reduction and internal fixation (ORIF) on April 11, 2024. Due to the nature of the injury and the surgical intervention, Joanna requires a comprehensive postoperative care plan to ensure optimal recovery and prevent complications. Medical Necessity for [facility]: * Postoperative Care and Monitoring: * Joanna requires intensive postoperative care to manage pain, prevent complications, and ensure proper healing of the surgical site. This level of care is beyond what can be provided in an outpatient setting or through home care services. * Nonweightbearing Protocol: * Joanna must adhere to a strict nonweightbearing protocol for a minimum of 8 weeks following her surgery. This is essential to allow the fracture to heal properly and to avoid displacement or additional injury. * Physical Therapy and Rehabilitation: * Following the initial nonweightbearing phase, Joanna will transition to protected weightbearing, which requires skilled physical therapy to restore function and mobility. The [facility] facility will facilitate and monitor this rehabilitation process, ensuring that Joanna progresses appropriately. * Assistance with Daily Living Activities: * Given her postoperative state, Joanna will need assistance with activities of daily living (ADLs), including mobility, personal hygiene, and meal preparation. The [facility] facility will provide the necessary support and care to ensure her safety and well-being during her recovery. * Adherence to Medical Recommendations: * The facility will ensure compliance with medical recommendations, including medication management, wound care, and monitoring for any potential complications that may arise during the recovery period. Conclusion: In light of the complex nature of Joanna Taveras postoperative care needs, including strict nonweightbearing requirements, physical therapy, and assistance with daily living, a [facility] facility is medically necessary to facilitate a successful recovery. The [facility] facility will provide the specialized care required to manage her postoperative state and support her rehabilitation process effectively. Coding Level of Care Code Acute Code for [facility] Diagnoses Closed fracture of left calcaneus S92.052A Encounter type: initial encounter Fracture alignment: displaced Fracture morphology: other extra-articular
[2024-04-13] MEDS: pantoprazole 40 mg SDV IVP (18:01)
[2024-04-13] MEDS: enoxaparin 40 mg/0.4 mL Syringe SUBCUT (21:34)
[2024-04-14 04:00] VITALS: BP 152/67; PULSE 61; RESP 20; TEMP 36.7; O2SAT 96
[2024-04-14 07:17] VITALS: BP 186/72; PULSE 61; RESP 17; TEMP 37; O2SAT 94
[2024-04-14] MEDS: aspirin 81 mg EC Tablet PO (09:02)
[2024-04-14] MEDS: spironolactone 25 mg Tablet PO (09:02)
[2024-04-14] MEDS: hyDRALAzine 10 mg Tablet PO ×2 (09:02→17:17)
[2024-04-14] MEDS: metoprolol tartrate 25 mg Tablet PO ×2 (09:02→17:16)
[2024-04-14] MEDS: escitalopram 10 mg Tablet 20 MG PO (09:02)
[2024-04-14] MEDS: lisinopril 20 mg Tablet 30 MG PO (09:03)
--- NOTE | 2024-04-14 09:17 | PC.CHAP ---
Pastoral Care Encounter/Spiritual Assessment Type of Contact [] Declined economic development coordinator visit [] Patient/Family/Request visit [] Outpatient visit [] Follow-up visit [] Physician referral [] Code/Alert [x] Routine visit [] Staff referral [] Actively dying [] Patient sleeping [] Family support [] [] Out of room [] Palliative care [] [] Receiving care in room [] Pre-surgical visit [] Trauma [] Long length of stay [] ICU visit [] Other: Relational/Emotional Strength [] Patient feels connected with others/family/visitors/staff [x] Distress [] Loneliness/isolation [] Abandonment Spirituality of Patient [] Person of Pat [] Attends Sabianist of their Pat [x] Believes in Prayer [] Reads Bible or Quaker materials [] There are Spiritual issues to be addressed Acid Crane Operator Interventions [x] Prayer [] Active listening [x] Non-anxious presence [x] Spiritual/emotional support [] Crisis/trauma care [] Spiritual counseling [] Bereavement support [] Provided bereavement packet [] Provided Bible/devotional materials [] Provided toy/stuffed animal, coloring book to patient or family member [] Provided Communion [] Anointing/Rice [] Salvation [x] Completed spiritual assessment [] Other: Impact on Illness or Injury [] Angry [] Fearful [] Anxious [] Often cries [] Exhaustion [] Unable to work [] Unable to attend nondenominational [] Unable to walk/stand [] Unable to read [] Unable to drive [] Unable to eat/drink [] Unable to sleep [] Unable to be with family [] Patient intubated [] Other: Summary Time spent with patient 5 min
[2024-04-14 12:09] VITALS: BP 159/71; PULSE 59; RESP 18; TEMP 36.8; O2SAT 95
--- NOTE | 2024-04-14 12:55 | P.PN_ITS ---
Subjective 2 Subjective: Patient seen bedside this afternoon, she is in good spirits, denies any complaints. Patient denies any subjective nausea, vomiting, fever, chills, shortness of breath or chest pain. Vitals/I&O/Wt Last Vital Signs Temp 98.2 F 04/14/24 12:09 Pulse 59 L 04/14/24 12:09 Resp 18 04/14/24 12:09 BP 159/71 04/14/24 12:09 Pulse Ox 95 04/14/24 12:09 O2 Del Method Room Air 04/14/24 12:09 O2 Flow Rate 6 04/11/24 18:01 04/13/24 04/14/24 04/14/24 22:59 06:59 14:59 Intake Total 400 / 1120 240 / 240 Output Total 1350 / 1350 700 / 2050 Balance -950 / -230 -700 / -930 240 / 240 Weight last 48 hrs Weight 211 lb 14.4 oz Weight 261 lb 11.2 oz Physical Exam 2 Narrative: GENERAL: Patient is alert and oriented ?3 and in no acute distress. The following is a focused left lower extremity exam. VASCULAR: Dorsalis pedis and posterior tibial arteries palpable. Capillary refill time less than 3 seconds to the distal hallux bilaterally. Calf is supple and nontender proximally and distally. Mild edema at the operative site consistent with postoperative course. NEUROLOGICAL: Protective sensation diminished to light touch. DERMATOLOGICAL: Short leg cast intact, brisk cap refill to the left toes 1 through 5. Able to wiggle toes on command. MUSCULOSKELETAL: Tenderness about the operative site consistent with postoperative course. Further musculoskeletal exam deferred due to postoperative state. Data 04/12/24 03:07 04/12/24 17:05 A&P Assessment and plan (1) Closed fracture of left calcaneus: Qualifiers: Encounter type: initial encounter Fracture alignment: displaced F racture morphology: other extra-articular Qualified Code(s): S92.052A - Displaced other extraarticular fracture of left calcaneus, initial encounter for closed fracture Plan 83-year-old female presents with tongue type fracture of the left calcaneus 3 cm of displacement and compromised soft tissue. Status post ORIF left calcaneus performed 04/11/2024 no intraoperative complications. Doing well postoperatively has been compliant with nonweightbearing status. Remains in good spirits. Short leg cast is clean, dry and intact Baseline neurovascular status to the left foot Strict nonweightbearing left foot for 8 weeks Podiatry will follow. Will also be following up outpatient. Attestations 2 Medical Necessity Statement*: Joanna Wilson sustained a tongue-type fracture to her left calcaneus and underwent open reduction and internal fixation (ORIF) on April 11, 2024. Due to the nature of the injury and the surgical intervention, Joanna requires a comprehensive postoperative care plan to ensure optimal recovery and prevent complications. Medical Necessity for Shelter Facility: * Postoperative Care and Monitoring: * Joanna requires intensive postoperative care to manage pain, prevent complications, and ensure proper healing of the surgical site. This level of care is beyond what can be provided in an outpatient setting or through home care services. * Nonweightbearing Protocol: * Joanna must adhere to a strict nonweightbearing protocol for a minimum of 8 weeks following her surgery. This is essential to allow the fracture to heal properly and to avoid displacement or additional injury. * Physical Therapy and Rehabilitation: * Following the initial nonweightbearing phase, Joanna will transition to protected weightbearing, which requires skilled physical therapy to restore function and mobility. The senior care facility will facilitate and monitor this rehabilitation process, ensuring that Joanna progresses appropriately. * Assistance with Daily Living Activities: * Given her postoperative state, Joanna will need assistance with activities of daily living (ADLs), including mobility, personal hygiene, and meal preparation. The senior care facility will provide the necessary support and care to ensure her safety and well-being during her recovery. * Adherence to Medical Recommendations: * The facility will ensure compliance with medical recommendations, including medication management, wound care, and monitoring for any potential complications that may arise during the recovery period. Conclusion: In light of the complex nature of Joanna Taveras postoperative care needs, including strict nonweightbearing requirements, physical therapy, and assistance with daily living, a senior care facility is medically necessary to facilitate a successful recovery. The senior care facility will provide the specialized care required to manage her postoperative state and support her rehabilitation process effectively. Coding Level of Care Code Acute Code for [facility] Diagnoses Closed fracture of left calcaneus S92.052A Encounter type: initial encounter Fracture alignment: displaced Fracture morphology: other extra-articular
--- NOTE | 2024-04-14 13:45 | PM.PN ---
Subjective Subjective: Patient was seen this morning, she reports not feeling well, is not exactly able to elaborate, no fevers, no cough no chest pain no abdominal pain Vitals/I&O/Wt Last Vital Signs Temp 98.2 F 04/14/24 12:09 Pulse 59 L 04/14/24 12:09 Resp 18 04/14/24 12:09 BP 159/71 04/14/24 12:09 Pulse Ox 95 04/14/24 12:09 O2 Del Method Room Air 04/14/24 12:09 O2 Flow Rate 6 04/11/24 18:01 04/13/24 04/14/24 04/14/24 22:59 06:59 14:59 Intake Total 400 / 1120 240 / 240 Output Total 1350 / 1350 700 / 2050 Balance -950 / -230 -700 / -930 240 / 240 Weight last 48 hrs Weight 96.116 kg Weight 118.705 kg Physical Exam Const: COMMON NORMALS: no acute distress ORIENTATION/CONSCIOUSNESS: Yes awake and Yes oriented to person; not oriented to place and not oriented to time Resp: COMMON NORMALS: normal respiratory effort, No retractions, No use of accessory muscles and clear to auscultation bilaterally AUSCULTATION: clear to auscultation bilaterally Cardio: COMMON NORMALS: regular rate, regular rhythm, S1 normal heart sound present and S2 normal heart sound present RATE: regular rate RHYTHM: regular rhythm HEART SOUNDS: S1 normal heart sound present and S2 normal heart sound present GI: COMMON NORMALS: Normal to inspection, nondistended, normoactive bowel sounds present and non-tender Extremity: COMMON NORMALS: no pedal edema Neuro: SENSORIUM/ORIENTATION: Yes oriented to person, No oriented to place and No oriented to time Psych: COMMON NORMALS: mental status grossly normal Data 04/12/24 03:07 04/12/24 17:05 A&P Assessment and plan (1) Hypertension: (2) PAD (peripheral artery disease): (3) Hyponatremia: (4) Closed fracture of left calcaneus: Qualifiers: Encounter type: initial encounter Fracture alignment: displaced Fracture morphology: other extra-articular Qualified Code(s): S92.052A - Displaced other extraarticular fracture of left calcaneus, initial encounter for closed fracture Plan Left calcaneal fracture ? Status post surgical invention, currently in a cast ? Will work on placing to senior living facility due to increased needs ? Hydrocodone for pain control ? Lovenox for DVT prophylaxis ? Transaminitis, ultrasound abdomen, no acute findings ? Podiatry service consulted ? Continue metoprolol, continue lisinopril, continue aspirin, spironolactone ? Spoke to patient's DPOA, patient's daughter, patient is DNR/DNI Attestations Medical Necessity Statement*: Patient requires hospitalization for left calcaneal fracture Diagnoses Hypertension I10 PAD (peripheral artery disease) I73.9 Hyponatremia E87.1 Closed fracture of left calcaneus S92.052A Encounter type: initial encounter Fracture alignment: displaced Fracture morphology: other extra-articular
[2024-04-14 14:19] LABS: Basophils # 0.1 10^3/uL (0.0-0.1); Basophils % 0.5 %; Eosinophils # 0.2 10^3/uL (0.0-0.8); Eosinophils % 1.9 %; Hematocrit 37.9 % (36-47); Lymphocytes # 1.8 10^3/uL (0.8-4.8); Lymphocytes % 19.6 %; Mean Corpuscular HGB Conc 33.5 g/dL (30-55); Mean Corpuscular Hemoglobin 32.2 pg (27-33); Mean Corpuscular Volume 96.2 fl (85-98); Mean Platelet Volume 8.9 fL (7.4-10.4); Monocytes # 1.1 10^3/uL (0.2-0.9); Monocytes % 11.3 %; Neutrophils # 6.16 10^3/uL (1.8-7.7); Neutrophils % 66.2 %; Nucleated Red Blood Cells % 0 %; Platelet Count 289 10^3/cmm (157-399); Red Blood Count 3.94 10^6/uL (3.85-5.65); Red Cell Distribution Width 12.5 % (12.1-15.1); White Blood Count 9.32 10^3/uL (3.29-11.43)
[2024-04-14 14:36] LABS: Alanine Aminotransferase 64 U/L (0-33); Albumin Level 3.6 g/dL (3.5-5.2); Alkaline Phosphatase 95 U/L (35-105); Anion Gap 14.7 (5-19); Aspartate Amino Transferase 24 U/L (0-32); Blood Urea Nitrogen 14 mg/dL (8-23); Calcium 9.4 mg/dL (8.5-10.5); Carbon Dioxide 24 mmol/L (22-29); Chloride 102 mmol/L (98-107); Globulin 3.6 g/dL (1.3-4.6); Glucose 118 mg/dL (65-115); Osmolality Calculated 284 mOsm/kg (285-295); Potassium 4.7 mmol/L (3.5-5.1); Sodium 136 mmol/L (136-145); Total Bilirubin 0.4 mg/dL (0.15-1.2); Total Protein 7.2 g/dL (6.6-8.7)
[2024-04-14] MEDS: amlodipine 5 mg Tablet PO (15:08)
[2024-04-14] MEDS: pantoprazole DR 40 mg Tablet PO (17:16)
[2024-04-14 17:48] VITALS: BP 183/79; PULSE 66; RESP 19; TEMP 36.8; O2SAT 96
[2024-04-14 20:00] VITALS: BP 126/73; PULSE 62; RESP 18; TEMP 36.3; O2SAT 95
[2024-04-14] MEDS: enoxaparin 40 mg/0.4 mL Syringe SUBCUT (20:55)
[2024-04-14 23:52] VITALS: BP 145/73; PULSE 62; RESP 17; TEMP 36.8; O2SAT 93
[2024-04-15 04:00] VITALS: BP 176/82; PULSE 68; RESP 20; TEMP 36.3; O2SAT 94
[2024-04-15 07:34] VITALS: BP 186/78; PULSE 67; RESP 17; TEMP 36.8; O2SAT 94
[2024-04-15] MEDS: metoprolol tartrate 25 mg Tablet PO ×2 (10:23→18:00)
[2024-04-15] MEDS: hyDRALAzine 10 mg Tablet PO ×2 (10:24→18:00)
[2024-04-15] MEDS: spironolactone 25 mg Tablet PO (10:24)
[2024-04-15] MEDS: amlodipine 5 mg Tablet PO (10:24)
[2024-04-15] MEDS: aspirin 81 mg EC Tablet PO (10:24)
[2024-04-15] MEDS: escitalopram 10 mg Tablet 20 MG PO (10:24)
[2024-04-15] MEDS: lisinopril 20 mg Tablet 30 MG PO (10:24)
[2024-04-15] MEDS: HYDROcodone-acetaminophen 5-325 mg Tablet 1 TAB PO (10:24)
[2024-04-15] MEDS: pantoprazole DR 40 mg Tablet PO (10:24)
[2024-04-15 11:21] VITALS: BP 172/76; PULSE 64; RESP 17; TEMP 36.3; O2SAT 94
--- NOTE | 2024-04-15 14:39 | PM.PN ---
Subjective Subjective: Patient was seen this morning, she is alert to person, not to place, to time, has no complaints this morning Vitals/I&O/Wt Last Vital Signs Temp 97.4 F L 04/15/24 11:21 Pulse 64 04/15/24 11:21 Resp 17 04/15/24 11:21 BP 172/76 04/15/24 11:21 Pulse Ox 94 04/15/24 11:21 O2 Del Method Room Air 04/15/24 11:21 O2 Flow Rate 6 04/11/24 18:01 04/14/24 04/15/24 04/15/24 22:59 06:59 14:59 Intake Total 720 / 960 0 / 960 120 / 120 Output Total 1100 / 1100 200 / 1300 Balance -380 / -140 -200 / -340 120 / 120 Weight last 48 hrs Weight 94.846 kg Weight 96.116 kg Physical Exam Const: COMMON NORMALS: no acute distress Resp: COMMON NORMALS: normal respiratory effort, No retractions, No use of accessory muscles and clear to auscultation bilaterally AUSCULTATION: clear to auscultation bilaterally Cardio: COMMON NORMALS: regular rate, regular rhythm, S1 normal heart sound present and S2 normal heart sound present RATE: regular rate RHYTHM: regular rhythm HEART SOUNDS: S1 normal heart sound present and S2 normal heart sound present GI: COMMON NORMALS: Normal to inspection, nondistended, normoactive bowel sounds present and non-tender Extremity: NARRATIVE EXTREMITY EXAM: Right lower extremity in a cast able to wiggle her toes, good capillary refill Data 04/14/24 14:11 04/14/24 14:11 A&P Assessment and plan (1) Hypertension: (2) PAD (peripheral artery disease): (3) Hyponatremia: (4) Closed fracture of left calcaneus: Qualifiers: Encounter type: initial encounter Fracture alignment: displaced Fracture morphology: other extra-articular Qualified Code(s): S92.052A - Displaced other extraarticular fracture of left calcaneus, initial encounter for closed fracture Plan Left calcaneal fracture ? Status post surgical invention, currently in a cast ? Will work on placing to [place] [facility] due to increased needs ? Hydrocodone for pain control ? Lovenox for DVT prophylaxis ? Transaminitis, ultrasound abdomen, no acute findings ? Podiatry service consulted ? Continue metoprolol, continue lisinopril, continue aspirin, spironolactone ? Spoke to patient's DPOA, patient's daughter, patient is DNR/DNI Attestations Medical Necessity Statement*: Patient requires hospitalization for left calcaneal fracture status post surgery Diagnoses Hypertension I10 PAD (peripheral artery disease) I73.9 Hyponatremia E87.1 Closed fracture of left calcaneus S92.052A Encounter type: initial encounter Fracture alignment: displaced Fracture morphology: other extra-articular
[2024-04-15 15:28] VITALS: BP 172/76
[2024-04-15] MEDS: cloNIDine 0.1 mg Tablet PO (15:28)
[2024-04-15 16:00] VITALS: BP 147/74; PULSE 62; RESP 17; TEMP 36.7; O2SAT 94
[2024-04-15 20:00] VITALS: BP 126/63; PULSE 56; RESP 14; TEMP 36.8; O2SAT 95
[2024-04-15] MEDS: enoxaparin 40 mg/0.4 mL Syringe SUBCUT (21:48)
[2024-04-16] VITALS (10 sets, daily range): BP systolic 90–132; BP diastolic 56–76; PULSE 57–68; RESP 14–19; TEMP 36.3–36.8; O2SAT 92–96
[2024-04-16] MEDS: cloNIDine 0.1 mg Tablet PO (02:45)
[2024-04-16] MEDS: amlodipine 5 mg Tablet PO (08:22)
[2024-04-16] MEDS: aspirin 81 mg EC Tablet PO (08:22)
[2024-04-16] MEDS: escitalopram 10 mg Tablet 20 MG PO (08:23)
[2024-04-16] MEDS: lisinopril 20 mg Tablet 30 MG PO (08:24)
[2024-04-16] MEDS: hyDRALAzine 10 mg Tablet PO (08:24)
[2024-04-16] MEDS: spironolactone 25 mg Tablet PO (08:25)
[2024-04-16] MEDS: metoprolol tartrate 25 mg Tablet PO (08:25)
[2024-04-16] MEDS: pantoprazole DR 40 mg Tablet PO (08:25)
--- NOTE | 2024-04-16 15:26 | P.PN_ITS ---
Subjective 2 Subjective: Patient was seen this morning, she alert to person, not to place, not to time, she follows all commands, no complaints this morning, Vitals/I&O/Wt Last Vital Signs Temp 98.2 F 04/16/24 12:00 Pulse 68 04/16/24 12:00 Resp 16 04/16/24 12:00 BP 98/60 04/16/24 15:20 Pulse Ox 94 04/16/24 12:00 O2 Del Method Room Air 04/16/24 12:00 O2 Flow Rate 6 04/11/24 18:01 04/16/24 04/16/24 04/16/24 06:59 14:59 22:59 Intake Total 120 / 120 Output Total 100 / 700 Balance -100 / -580 120 / 120 Weight last 48 hrs Weight 95.3 kg Weight 94.846 kg Physical Exam 2 Const: COMMON NORMALS: no acute distress ORIENTATION/CONSCIOUSNESS: Yes awake and Yes oriented to person Resp: COMMON NORMALS: normal respiratory effort, No retractions, No use of accessory muscles and clear to auscultation bilaterally AUSCULTATION: clear to auscultation bilaterally Cardio: COMMON NORMALS: regular rate, regular rhythm, S1 normal heart sound present and S2 normal heart sound present RATE: regular rate RHYTHM: r egular rhythm HEART SOUNDS: S1 normal heart sound present and S2 normal heart sound present GI: COMMON NORMALS: Normal to inspection, nondistended, normoactive bowel sounds present and non-tender Extremity: COMMON NORMALS: no pedal edema Neuro: SENSORIUM/ORIENTATION: Yes oriented to person Data 04/14/24 14:11 04/14/24 14:11 A&P Assessment and plan (1) Hypertension: (2) PAD (peripheral artery disease): (3) Hyponatremia: (4) Closed fracture of left calcaneus: Qualifiers: Encounter type: initial encounter Fracture alignment: displaced F racture morphology: other extra-articular Qualified Code(s): S92.052A - Displaced other extraarticular fracture of left calcaneus, initial encounter for closed fracture Plan Left calcaneal fracture ? Status post surgical invention, currently in a cast ? Will work on placing to [facility] facility due to increased needs ? Hydrocodone for pain control ? Lovenox for DVT prophylaxis ? Transaminitis, ultrasound abdomen, no acute findings ? Podiatry service consulted ? Continue metoprolol, continue lisinopril, continue aspirin, spironolactone ? Spoke to patient's DPOA, patient's daughter, patient is DNR/DNI Attestations 2 Medical Necessity Statement*: Patient requires hospitalization for left calcaneal fracture Diagnoses Hypertension I10 PAD (peripheral artery disease) I73.9 Hyponatremia E87.1 Closed fracture of left calcaneus S92.052A Encounter type: initial encounter Fracture alignment: displaced Fracture morphology: other extra-articular
[2024-04-16] MEDS: enoxaparin 40 mg/0.4 mL Syringe SUBCUT (21:03)
[2024-04-17 03:44] VITALS: BP 144/74
[2024-04-17] MEDS: cloNIDine 0.1 mg Tablet PO (03:44)
[2024-04-17 04:00] VITALS: BP 144/74; PULSE 59; RESP 18; TEMP 36.6; O2SAT 98
[2024-04-17 07:45] VITALS: BP 131/71; PULSE 79; RESP 15; TEMP 36.6; O2SAT 96
[2024-04-17] MEDS: pantoprazole DR 40 mg Tablet PO (08:34)
[2024-04-17] MEDS: escitalopram 10 mg Tablet 20 MG PO (08:34)
[2024-04-17] MEDS: aspirin 81 mg EC Tablet PO (08:35)
[2024-04-17] MEDS: spironolactone 25 mg Tablet PO (08:35)
[2024-04-17] MEDS: amlodipine 5 mg Tablet PO (09:12)
[2024-04-17] MEDS: lisinopril 20 mg Tablet 30 MG PO (09:12)
[2024-04-17 11:37] VITALS: BP 119/78; PULSE 76; RESP 16; TEMP 36.7; O2SAT 94
--- NOTE | 2024-04-17 13:54 | P.DS_ITS ---
Discharge Providers Date of Admission: 04/11/24 16:45 Date of Discharge: April 17, 2024 Attending Provider at Admission: Reynaldo Alex MD Attending Provider at Discharge: Isak Crawford DPM Primary Care Provider: Poli Lara DO Diagnoses at Discharge Discharge Diagnosis (1) Hypertension: Status: Acute (2) PAD (peripheral artery disease): Status: Acute (3) Hyponatremia: Status: Acute (4) Closed fracture of left calcaneus: Status: Acute Qualifiers: Encounter type: initial encounter Fracture alignment: displaced Fracture morphology: other extra-articular Qualified Code(s): S92.052A - Displaced other extraarticular fracture of left calcaneus, initial encounter for closed fracture Reason for Visit Reason for Visit: left foot/ankle pain s/p fall Hospital Course Hospital Course Joanna Wilson is a 83 year old female with a past medical history of dementia, peripheral arterial disease, hypertension, dementia, who presents to [facility] for a fall. Currently patient is alert to person, not to place, not to time, she follows commands, her only complaint is left ankle pain, I cannot get a reliable history from her, according to ER provider advises me that patient is from [facility], has dementia, she had a witnessed fall, patient was reaching for a close door when it is along open causing her to fall forward, it was a witnessed fall, no reported head trauma or loss of consciousness, This is a an 83-year-old able, who presents for left calcaneal fracture, status post surgical intervention, currently in a cast, Salomon catheter in place, should be removed, within 2 weeks, patient is nonweightbearing for at least 8 weeks, and has dementia and has a tendency to ambulate on her own, the goal was to minimize the impact on surgical site, allow for enough time for healing. Thus can keep an Salomon catheter until about April 24 and then can remove, monitor for UTIs, if so treat with antibiotics. Physical Exam Const: COMMON NORMALS: no acute distress ORIENTATION/CONSCIOUSNESS: Yes awake, Yes oriented to person and Yes oriented to time; not oriented to place Resp: COMMON NORMALS: normal respiratory effort, No retractions, No use of accessory muscles and clear to auscultation bilaterally AUSCULTATION: clear to auscultation bilaterally Cardio: COMMON NORMALS: regular rate, regular rhythm, S1 normal heart sound present and S2 normal heart sound present RATE: regular rate RHYTHM: regular rhythm HEART SOUNDS: S1 normal heart sound present and S2 normal heart sound present GI: COMMON NORMALS: Normal to inspection, nondistended, normoactive bowel sounds present and non-tender Extremity: COMMON NORMALS: no pedal edema NARRATIVE EXTREMITY EXAM: Lower extremity in a cast, good cappillary refills Neuro: SENSORIUM/ORIENTATION: Yes oriented to person, No oriented to place and Yes oriented to time Psych: COMMON NORMALS: mental status grossly normal Discharge Data Studies Completed and Pending Completed Studies During Hospitalization Category Date Time Status CT cervical spin wo con* [id number] Urgent Cat Scan 04/11/24 14:[address] head wo con* [id number] Urgent Cat Scan 04/11/24 14:39 Completed XR ankle LT min 3V* [id number] Stat Exams 04/11/24 13:00 Completed XR chest 1V portable [id number] Urgent Exams 04/11/24 13:57 Completed XR foot LT 2V [id number] Routine Exams 04/11/24 00:00 Completed XR foot LT min 3V* [id number] Stat Exams 04/11/24 13:00 Completed US abdomen limited [id number] Routine Ultrasound 04/12/24 09:12 Completed Pending at discharge Category Date Time Status SARS Covid-2 Antigen Routine Lab 04/17/24 13:36 Ordered Radiology Impressions Ankle X-Ray 04/11/24 13:00 IMPRESSION: Extra-articular avulsion fracture of the posterior process of the left calcaneus at the attachment of the Achilles tendon. Foot X-Ray 04/11/24 13:00 IMPRESSION: Extra-articular avulsion fracture of the posterior process of the left calcaneus at the attachment of the Achilles tendon. Chest X-Ray 04/11/24 13:57 IMPRESSION: No acute findings. Cervical Spine CT 04/11/24 14:39 IMPRESSION: No acute fracture subluxation. COMMENTS: Consistent with the [employer]'s Incidental Findings Committee white paper (J Am Jolly Radiol 2015): In patients aged 35 years and older with an incidental thyroid nodule equal to or greater than 1.[address], MRI or extrathyroidal US, further evaluation with dedicated thyroid US is recommended for patients with normal life expectancy and without comorbidities. For smaller nodules without suspicious features, no further evaluation or follow up is recommended. Head CT 04/11/24 14:39 IMPRESSION: No acute intracranial abnormality. Abdomen Ultrasound 04/12/24 09:12 IMPRESSION: The liver is mildly diffusely increased in echogenicity raising concern for fatty infiltration. Laboratory Results WBC 9.32 10^3/uL (3.29-11.43) 04/14/24 14:11 RBC 3.94 10^6/uL (3.85-5.65) 04/14/24 14:11 Hgb 12.70 g/dL (11.27-16.99) 04/14/24 14:11 Hct 37.9 % (36-47) 04/14/24 14:11 MCV 96.2 fl (85-98) 04/14/24 14:11 MCH 32.2 pg (27-33) 04/14/24 14:11 MCHC 33.5 g/dL (30-55) 04/14/24 14:11 RDW 12.5 % (12.1-15.1) 04/14/24 14:11 Plt Count 289 10^3/cmm (157-399) 04/14/24 14:11 MPV 8.9 fL (7.4-10.4) 04/14/24 14:11 Neut % (Auto) 66.2 % 04/14/24 14:11 Lymph % (Auto) 19.6 % 04/14/24 14:11 [place] % (Auto) 11.3 % 04/14/24 14:11 Eos % (Auto) 1.9 % 04/14/24 14:11 Baso % (Auto) 0.5 % 04/14/24 14:11 Neut # (Auto) 6.16 10^3/uL (1.8-7.7) 04/14/24 14:11 Lymph # (Auto) 1.8 10^3/uL (0.8-4.8) 04/14/24 14:11 [place] # (Auto) 1.1 10^3/uL (0.2-0.9) H 04/14/24 14:11 Eos # (Auto) 0.2 10^3/uL (0.0-0.8) 04/14/24 14:11 Baso # (Auto) 0.1 10^3/uL (0.0-0.1) 04/14/24 14:11 Nucleated RBC % (auto) 0 % 04/14/24 14:11 Nucleated RBCs # 0.0 /100WBC 04/14/24 14:11 Sodium 136 mmol/L (136-145) 04/14/24 14:11 Potassium 4.7 mmol/L (3.5-5.1) 04/14/24 14:11 Chloride 102 mmol/L (98-107) 04/14/24 14:11 Carbon Dioxide 24 mmol/L (22-29) 04/14/24 14:11 Anion Gap 14.7 (5-19) 04/14/24 14:11 BUN 14 mg/dL (8-23) 04/14/24 14:11 Creatinine 0.8 mg/dL (0.5-0.9) 04/14/24 14:11 GFR Calculation Not Reportable 04/14/24 14:11 Glucose 118 mg/dL (65-115) H 04/14/24 14:11 Estimat Average Glucose 117 04/11/24 14:16 Hemoglobin A1c 5.7 % (4.0-6.0) 04/11/24 14:16 Calculated Osmolality 284 mOsm/kg (285-295) L 04/14/24 14:11 Calcium 9.4 mg/dL (8.5-10.5) 04/14/24 14:11 Total Bilirubin 0.4 mg/dL (0.15-1.2) 04/14/24 14:11 AST 24 U/L (0-32) 04/14/24 14:11 ALT 64 U/L (0-33) H 04/14/24 14:11 Alkaline Phosphatase 95 U/L (35-105) 04/14/24 14:11 NT-Pro-B Natriuret Pep 192 pg/mL (0-450) 04/11/24 14:16 Total Protein 7.2 g/dL (6.6-8.7) 04/14/24 14:11 Albumin 3.6 g/dL (3.5-5.2) 04/14/24 14:11 Globulin 3.6 g/dL (1.3-4.6) 04/14/24 14:11 Triglycerides 118 mg/dL (0-150) 04/11/24 14:16 Cholesterol 189 mg/dL (0-200) 04/11/24 14:16 LDL Cholesterol, Calc 123 mg/dL (50-129) 04/11/24 14:16 HDL Cholesterol 42 mg/dL (60-100) L 04/11/24 14:16 LDL/HDL Ratio 2.93 RATIO (0.00-3.22) 04/11/24 14:16 Cholesterol/HDL Ratio 4.50 mg/dL (0.0-4.40) H 04/11/24 14:16 TSH 1.75 uIU/mL (0.27-4.20) 04/11/24 14:16 Urine Color Yellow (Yellow) 04/11/24 15:35 Urine Appearance Clear (CLEAR) 04/11/24 15:35 Urine pH 6 (5-7) 04/11/24 15:35 Ur Specific [place] 1.015 (1.005-1.030) 04/11/24 15:35 Urine Protein Neg (Negative) 04/11/24 15:35 Urine Glucose (UA) Norm (Normal) 04/11/24 15:35 Urine Ketones Negative (Negative) 04/11/24 15:35 Urine Blood Neg (Negative) 04/11/24 15:35 Urine Nitrate Negative (Negative) 04/11/24 15:35 Urine Bilirubin Neg (Negative) 04/11/24 15:35 Urine Urobilinogen Norm mg/dL (Negative) 04/11/24 15:35 Ur Leukocyte Esterase Negative (Negative) 04/11/24 15:35 Vitals Last Vital Signs Temp 98.0 F 04/17/24 11:37 Pulse 76 04/17/24 11:37 Resp 16 04/17/24 11:37 BP 119/78 04/17/24 11:37 Pulse Ox 94 04/17/24 11:37 O2 Del Method Room Air 04/17/24 11:37 O2 Flow Rate 6 04/11/24 18:01 Discharge Plan Discharge Patient Disposition: Home Condition: Stable Prescriptions: New hydrocodone-acetaminophen 5-325 mg tablet 1 tab PO Q12H PRN (Reason: pain) 7 Days Qty: 14 0RF amlodipine 5 mg Tablet 5 mg PO DAILY 30 Days Qty: 30 0RF Continued (DME) assisted living admission See Rx Instructions .Route .MEDSUPPLY Qty: 1 0RF Rx Instructions: admit to assisted living; admit to [facility] spironolactone 25 mg tablet 25 mg PO DAILY Qty: 30 0RF escitalopram oxalate 20 mg tablet 20 mg PO DAILY Qty: 90 1RF aspirin [Adult Low Dose Aspirin] 81 mg tablet,delayed release (DR/EC) 81 mg PO DAILY Qty: 90 0RF (DME) front wheeled walker See Rx Instructions .Route .MEDSUPPLY Qty: 1 0RF Rx Instructions: As directed melatonin 5 mg Tablet See Rx Instructions .ROUTE .COMPLEX Rx Instructions: Take 5mg by mouth every other night for sleep. L-Theanine See Rx Instructions .ROUTE .COMPLEX Rx Instructions: Take 100 mg by mouth every other day at bedtime. hydralazine 10 mg tablet 10 mg PO BID Qty: 60 0RF acetaminophen 325 mg Tablet 325 mg PO Q4H PRN (Reason: Pain) Robitussin Cough-Chest Brock DM 5-100 mg/5 mL Liquid 10 ml PO Q4H PRN (Reason: cough and congestion) Changed lisinopril 30 mg tablet 15 mg PO BID Qty: 30 5RF Discontinued acetaminophen 500 mg Tablet 1,000 mg PO DAILY metoprolol tartrate 25 mg tablet 25 mg PO BID Qty: 60 0RF Discharge Orders: Discharge Order (Routine); Ordered 04/17/24 Ordered By: Reynaldo Alex Referrals: Isak Crawford DPM [Physician] - 04/27/24 9:00 am Poli Lara DO [Primary Care Provider] - Discharge Diet: Cardiac Discharge Activity: Wheelchair as instructed Patient Instructions: Calcaneal Fracture (DC), Achilles Tendon Repair (DC), Opioid Safety Activity Restrictions/Additional Instructions: Instructions from Dr. Crawford -Follow-up with Dr. Crawford at [facility] podiatry clinic on April 28, 2024 at 1:00 PM -Strict nonweightbearing to the left lower extremity, anticipated 8 weeks of nonweightbearing. Achilles rupture with calcaneal fracture is delicate and weightbearing will result in failure at the surgical repair. -Resume baby aspirin 81 mg once daily to help potentially reduce risk of deep vein thrombosis. -Keep short leg cast left lower extremity clean, dry and intact until follow-up visit. No dressing changes. Please contact Dr. Crawford with any postoperative questions or concerns cell phone number [phone] -Remove Salomon catheter at April 24, 2024 Discharge Attestations Time Spent in Discharge Care*: greater than 30 min Quality Metrics Clinical Quality Measures [ No reported AMI, CVA or VTE this stay] Coding Level of Care Code 91951 Total time (in minutes) for Discharge: 45 Diagnoses Hypertension I10 PAD (peripheral artery disease) I73.9 Hyponatremia E87.1 Closed fracture of left calcaneus S92.052A Encounter type: initial encounter Fracture alignment: displaced Fracture morphology: other extra-articular
[2024-04-17 14:31] LABS: SARS Covid-2 Antigen negative (Negative)
--- NOTE | 2024-04-17 15:09 | P.PN_ITS ---
Subjective 2 Subjective: Patient seen bedside she is in good spirits laying comfortably in bed when entering the room. Hopeful for transfer today. Denies any left foot pain. Patient denies any subjective nausea, vomiting, fever, chills, shortness of breath or chest pain. Vitals/I&O/Wt Last Vital Signs Temp 98.0 F 04/17/24 11:37 Pulse 76 04/17/24 11:37 Resp 16 04/17/24 11:37 BP 119/78 04/17/24 11:37 Pulse Ox 94 04/17/24 11:37 O2 Del Method Room Air 04/17/24 11:37 O2 Flow Rate 6 04/11/24 18:01 04/17/24 04/17/24 04/17/24 06:59 14:59 22:59 Intake Total 0 / 360 240 / 240 Output Total 900 / 1400 Balance -900 / -1040 240 / 240 Weight last 48 hrs Weight 209 lb 6.4 oz Weight 210 lb 1.6 oz Physical Exam 2 Narrative: GENERAL: Patient is alert and oriented ?3 and in no acute distress. The following is a focused left lower extremity exam. VASCULAR: Dorsalis pedis and posterior tibial arteries palpable. Capillary refill time less than 3 seconds to the distal hallux bilaterally. Calf is supple and nontender proximally and distally. Mild edema at the operative site consistent with postoperative course. NEUROLOGICAL: Protective sensation diminished to light touch. DERMATOLOGICAL: Short leg cast intact, brisk cap refill to the left toes 1 through 5. Able to wiggle toes on command. MUSCULOSKELETAL: Tenderness about the operative site consistent with postoperative course. Further musculoskeletal exam deferred due to postoperative state. Data 04/14/24 14:11 04/14/24 14:11 A&P Assessment and plan (1) Closed fracture of left calcaneus: Qualifiers: Encounter type: initial encounter Fracture alignment: displaced F racture morphology: other extra-articular Qualified Code(s): S92.052A - Displaced other extraarticular fracture of left calcaneus, initial encounter for closed fracture Plan 83-year-old female presents with tongue type fracture of the left calcaneus 3 cm of displacement and compromised soft tissue. Status post ORIF left calcaneus performed 04/11/2024 no intraoperative complications. Doing well postoperatively has been compliant with nonweightbearing status. Remains in good spirits. Short leg cast is clean, dry and intact Baseline neurovascular status to the left foot Strict nonweightbearing left foot for 8 weeks Podiatry will follow. Will also be following up outpatient. Attestations 2 Medical Necessity Statement*: Postop ORIF left calcaneal fracture Coding Level of Care Code Acute Code for [facility] Fwd Diagnoses Closed fracture of left calcaneus S92.052A Encounter type: initial encounter Fracture alignment: displaced Fracture morphology: other extra-articular
[2024-04-17 15:29] VITALS: BP 119/78; PULSE 76; RESP 16; TEMP 36.7; O2SAT 94
== END 2024-04-17 15:30 | disposition skilled nursing facility (03) | DRG 504 ==
LOC: ER 15:37 → OR 16:03 → MEDSURG 21:15
PROVIDERS: Admitting Provider Family Medicine; Emergency Provider Physician Assistant; PCP Family Medicine; Visit Provider Podiatrist Foot & Ankle Surgery
PROC: 0QSM04Z Reposition Left Tarsal with Internal Fixation Device, Open Approach (ICD-10-PCS; CPT 28415; principal; 2024-04-11 17:00)
DX: S92.052A Displaced other extraarticular fracture of left calcaneus, initial encounter for closed fracture (principal); E87.1 Hypo-osmolality and hyponatremia; F03.93 Unspecified dementia, unspecified severity, with mood disturbance; W01.0XXA Fall on same level from slipping, tripping and stumbling without subsequent striking against object, initial encounter; I73.9 Peripheral vascular disease, unspecified; I10 Essential (primary) hypertension; Z66 Do not resuscitate; Z11.52 Encounter for screening for COVID-19; Z79.82 Long term (current) use of aspirin
CPT/HCPCS: 36415; 70450; 71045; 72125; 73610; 73620; 73630; 76000; 76705; 80048; 80053; 80061; 81003; 83036; 83880; 84443; 85025; 87426; 93005; 94664; 96372; 96374; 96375; 97110; 97161; 97530; 99285; C1713; J0690; J1100; J1650; J2270; J2405; J2470; J2704; J3010; J3490; J7030

== ENCOUNTER → 2024-04-28 12:56 | Outpatient (BNVA) | payer MEDICARE, SELFPAY | PROVIDERS: PCP Family Medicine; Visit Provider Podiatrist Foot & Ankle Surgery | DX: Z98.890 Other specified postprocedural states; S92.052 Displaced other extraarticular fracture of left calcaneus; X58.XXXD Exposure to other specified factors, subsequent encounter; F03.90 Unspecified dementia, unspecified severity, without behavioral disturbance, psychotic disturbance, mood disturbance, and anxiety | CPT/HCPCS: 73650; 99024 ==

== ENCOUNTER → 2024-05-12 14:59 | Outpatient (BNVA) | payer MEDICARE, SELFPAY | PROVIDERS: PCP Family Medicine; Visit Provider Podiatrist Foot & Ankle Surgery | DX: S92.052 Displaced other extraarticular fracture of left calcaneus; X58.XXXD Exposure to other specified factors, subsequent encounter; F03.90 Unspecified dementia, unspecified severity, without behavioral disturbance, psychotic disturbance, mood disturbance, and anxiety; Z98.890 Other specified postprocedural states; Z87.81 Personal history of (healed) traumatic fracture | CPT/HCPCS: 29405; 73650 ==

== ENCOUNTER → 2024-05-19 14:56 | Outpatient (CLI) | payer MEDICARE, SELFPAY | LOC: SPT 14:57 | PROVIDERS: PCP Family Medicine; Visit Provider Podiatrist Foot & Ankle Surgery | DX: Z46.89 Encounter for fitting and adjustment of other specified devices (principal); S92.052 Displaced other extraarticular fracture of left calcaneus; X58.XXXD Exposure to other specified factors, subsequent encounter | CPT/HCPCS: 97760; L4361 ==

== ENCOUNTER → 2024-06-10 11:39 | Outpatient (BNVA) | payer MEDICARE, SELFPAY | PROVIDERS: PCP Family Medicine; Visit Provider Podiatrist Foot & Ankle Surgery | DX: S92.052A Displaced other extraarticular fracture of left calcaneus, initial encounter for closed fracture (principal); Z98.890 Other specified postprocedural states; Z87.81 Personal history of (healed) traumatic fracture; X58.XXXA Exposure to other specified factors, initial encounter | CPT/HCPCS: 73650 ==

== ENCOUNTER → 2024-06-18 14:48 | Outpatient (BNVA) | payer MEDICARE, SELFPAY | PROVIDERS: PCP Family Medicine; Visit Provider Podiatrist Foot & Ankle Surgery | DX: Z98.890 Other specified postprocedural states (principal); S92.052A Displaced other extraarticular fracture of left calcaneus, initial encounter for closed fracture; X58.XXXA Exposure to other specified factors, initial encounter; F03.90 Unspecified dementia, unspecified severity, without behavioral disturbance, psychotic disturbance, mood disturbance, and anxiety; Z87.81 Personal history of (healed) traumatic fracture | CPT/HCPCS: 73650; 99024 ==

== ENCOUNTER → 2024-07-20 13:53 | Outpatient (BNVA) | payer MEDICARE, SELFPAY | PROVIDERS: PCP Family Medicine; Visit Provider Podiatrist Foot & Ankle Surgery | DX: Z98.890 Other specified postprocedural states; S92.052 Displaced other extraarticular fracture of left calcaneus; X58.XXXD Exposure to other specified factors, subsequent encounter | CPT/HCPCS: 73650; 99024 ==

== ENCOUNTER → 2024-09-30 13:58 | Outpatient (BNVA) | payer MEDICARE, SELFPAY | PROVIDERS: PCP Family Medicine; Visit Provider Podiatrist Foot & Ankle Surgery | DX: M79.672 Pain in left foot (principal); I73.9 Peripheral vascular disease, unspecified; B35.1 Tinea unguium | CPT/HCPCS: 99213 ==

== ENCOUNTER → 2024-12-30 14:05 | Outpatient (BNVA) | payer MEDICARE, SELFPAY | PROVIDERS: PCP Family Medicine; Visit Provider Podiatrist Foot & Ankle Surgery | DX: I73.9 Peripheral vascular disease, unspecified (principal); B35.1 Tinea unguium | CPT/HCPCS: 99213 ==

== ENCOUNTER 2025-01-28 16:16 | Outpatient (CLI) | payer MEDICARE, SELFPAY ==
[2025-01-28 17:18] LABS: Basophils % 0.4 %; Eosinophils # 0.2 10^3/uL (0.0-0.8); Eosinophils % 2.4 %; Hematocrit 41.3 % (36-47); Lymphocytes # 2.1 10^3/uL (0.8-4.8); Lymphocytes % 28.6 %; Mean Corpuscular HGB Conc 33.9 g/dL (30-55); Mean Corpuscular Volume 94.5 fl (85-98); Mean Platelet Volume 10.8 fL (7.4-10.4); Monocytes # 0.7 10^3/uL (0.2-0.9); Monocytes % 9.9 %; Neutrophils # 4.29 10^3/uL (1.8-7.7); Neutrophils % 58.4 %; Nucleated Red Blood Cells % 0 %; Platelet Count 189 10^3/cmm (157-399); Red Blood Count 4.37 10^6/uL (3.85-5.65); Red Cell Distribution Width 13.2 % (12.1-15.1); White Blood Count 7.35 10^3/uL (3.29-11.43)
[2025-01-28 17:39] LABS: Alanine Aminotransferase 27 U/L (0-33); Albumin Level 3.9 g/dL (3.5-5.2); Alkaline Phosphatase 94 U/L (35-105); Blood Urea Nitrogen 14 mg/dL (8-23); Calcium 9.5 mg/dL (8.5-10.5); Carbon Dioxide 23 mmol/L (22-29); Chloride 103 mmol/L (98-107); Globulin 3.6 g/dL (1.3-4.6); Glucose 97 mg/dL (65-115); Osmolality Calculated 290 mOsm/kg (285-295); Sodium 140 mmol/L (136-145); Total Bilirubin 0.4 mg/dL (0.15-1.2); Total Protein 7.5 g/dL (6.6-8.7)
[2025-01-28 17:45] LABS: Anion Gap 17.8 (5-19); Aspartate Amino Transferase 24 U/L (0-32); Potassium 3.8 mmol/L (3.5-5.1)
[2025-01-28 18:00] LABS: Slide Review Slide Review Perform
[2025-01-29 04:13] LABS: Vitamin B12 353 pg/mL (232-1245)
[2025-01-29 05:23] LABS: Thyroid Stimulating Hormone 2.53 uIU/mL (0.27-4.20)
[2025-01-29 05:34] LABS: 25 Hydroxy Vitamin D 18 ng/mL (30-100)
== END 2025-01-28 16:17 | disposition home or self-care (01) ==
PROVIDERS: PCP Family Medicine; Visit Provider Family Medicine
DX: R53.1 Weakness (principal); E03.9 Hypothyroidism, unspecified; I73.9 Peripheral vascular disease, unspecified; E87.1 Hypo-osmolality and hyponatremia; F03.90 Unspecified dementia, unspecified severity, without behavioral disturbance, psychotic disturbance, mood disturbance, and anxiety; R53.81 Other malaise; R53.83 Other fatigue; E55.9 Vitamin D deficiency, unspecified
CPT/HCPCS: 36415; 80053; 82306; 82607; 84443; 85025

== ENCOUNTER → 2025-02-02 16:23 | Outpatient (BNVA) | payer MEDICARE, SELFPAY | PROVIDERS: PCP Family Medicine; Visit Provider Emergency Medicine | DX: R35.0 Frequency of micturition (principal); N30.00 Acute cystitis without hematuria | CPT/HCPCS: 81000; 87086 ==

== ENCOUNTER 2025-02-09 06:58 | Emergency (ER) | payer MEDICARE, SELFPAY ==
--- NOTE | 2025-02-09 07:01 | ECG_ITS ---
[facility] 2025-[facility]09 Pat Name: Joanna Wilson Department: Room: Gender: Female Wick Tender: : 1940 Requested By: Grady Bedolla Order Number: [id number] Reading MD: Measurements Intervals [place] Rate: 70 P: 21 AK: 158 QRS: 48 QRSD: 88 T: 57 QT: 384 QTc: 417 Interpretive Statements SINUS RHYTHM [email or web address]
[2025-02-09 07:11] VITALS: BP 137/93; PULSE 81; RESP 24; TEMP 36.6; O2SAT 96; BMI 30.9
--- NOTE | 2025-02-09 07:15 | ED_ITS ---
HPI - Abdominal Pain 2 General: Chief Complaint: Nausea/Vomiting/Diarrhea Stated Complaint: abd pain Time Seen by Provider: 02/09/25 07:01 History of Present Illness: 84-year-old female presents emergency ro om with complaint of abdominal pain. Patient is a poor historian is a history of dementia. Evidently per family has not seemed to feel well for the last 2 weeks recently diagnosed with a UTI. Is on antibiotics Macrobid is on day 5. The culture that was ordered in the system but appears to have been canceled. From February 02, 2025 Associated Symptoms: Denies chills, dysuria and fever(s) Related Data Home Medications ?Medication ?Instructions ?Recorded ?Confirmed melatonin 5 mg tablet See Rx Instructions .Route . COMPLEX 03/02/23 02/02/25 Previous Rx's ?Medication ?Instructions ?Recorded assisted living admission #1 ea 05/16/22 aspirin 81 mg tablet,delayed 81 mg PO DAILY #90 tabs 0 05/18/22 release (Adult Low Dose Aspirin) front wheeled walker #1 ea 03/07/23 spironolactone 25 mg tablet 25 mg PO DAILY swelling #3 0 tabs 01/30/24 CAM walker with Achilles wedge #1 ea 05/19/24 Cam boot with Achilles lift to left #1 ea 06/10/24 nitrofurantoin macrocrystal 100 mg 100 mg PO BID 7 day s #14 caps 02/02/25 capsule ondansetron 4 mg disintegrating 4 mg PO Q6H PRN nausea and 02/02/25 tablet vomiting #20 tabs lorazepam 0.5 mg tablet (Ativan) 0.5 mg PO Q6H PRN shayy sea and 02/09/25 vomiting #10 tabs Allergies Allergy/AdvReac Type Severity Reaction Status Date / Time No Known Allergies Allergy Verified 02/02/25 15:44 Review of Systems 2 Const: Denies: fever(s) or chills Card: Denies: chest pain Resp: Denies: dyspnea GI: Denies: abdominal pain : Denies: dysuria, urinary frequency or urinary urgency Musc: Denies: neck pain or back pain Skin/Breast: Denies: rash PFSH ED 2 PFSH: Medical History Hypertension Altered mental state Depression Hyponatremia Memory changes Surgical History Hx of hysterectomy Hx of appendectomy Hx of cholecystectomy Family History Father Cancer Hyperlipidemia Hypertension Mother Dementia Diabetes Hyperlipidemia Hypertension Other CAD (coronary artery disease) Denies family history of Chronic kidney disease (CKD) Suicide Bleeding disorder Lung disease Stroke Social History Smoking and tobacco/nicotine status: never used tobacco/nicotine Alcohol intake: never Substance/Drug Use: never Adopted: No Household members: other Details: [facility] Housing: Assisted Living Facility Marital status: / Number of children: 3 Number of grandchildren: 9 Highest education level completed: High School Graduate Current occupational status: disabled Current gender identity: Female Physical Exam 2 Const: COMMON NORMALS: no acute distress GENERAL APPEARANCE: cooperative and comfortable ORIENTATION/CONSCIOUSNESS: Yes awake HENMT: COMMON NORMALS: normocephalic, atraumatic and hearing grossly normal bilaterally HEAD & SCALP: normocephalic and atraumatic Resp: COMMON NORMALS: normal respiratory effort, No retractions, No use of accessory muscles and clear to auscultation bilaterally AUSCULTATION: clear to auscultation bilaterally Cardio: COMMON NORMALS: regular rate, regular rhythm and No murmurs present (Cardio) RATE: regular rate RHYTHM: regular rhythm GI: COMMON NORMALS: Soft to palpation and No hepatosplenomegaly present A USCULTATION: Yes normoactive bowel sounds PALPATION: Yes Soft to palpation, No Tenderness to palpation present (GI), No Guarding due to palpation present (GI) and Yes No hepatosplenomegaly present Extremity: COMMON NORMALS: normal to inspection, capillary refill normal, no clubbing, cyanosis or edema, no calf tenderness and no pedal edema Skin: COMMON NORMALS: no rashes or lesions noted GENERAL SKIN EXAM: no rashes or lesions noted Course 2 Vital Signs: Vital signs: Vital Signs Temperature 97.8 F 02/09/25 07:11 Pulse Rate 80 02/09/25 11:30 Respiratory Rate 18 02/09/25 08:15 Blood Pressure 146/71 02/09/25 11:30 Pulse Oximetry 98 02/09/25 11:30 Oxygen Delivery Me thod Room Air 02/09/25 10:06 MDM - Abdominal Pain Medical Decision Making CT abdomen negative no leukocytosis no sign of cystitis. Patient seemed very anxious seems to be almost behavioral. At other times she seems to indicate pain but she does not verbalize anything. We gave her some Ativan which seemed to help significantly. Reviewed with the son he had not noticed any other symptoms recently. Patient is quite a bit better per the son will discharge home use Ativan as needed and recommend they follow-up with the primary care doctor as soon as you are able. Return if has further problems. Medical Records I reviewed the patient's medical records. Lab Data I reviewed the patient's lab results. 02/09/25 07:50 02/09/25 07:50 Labs/Radiology: Radiology Impressions Abdomen/Pelvis CT 02/09/25 08:15 IMPRESSION: 1. No acute abdominal or pelvic abnormalities are identified. 2. No GI tract obstruction. 3. No renal obstruction or perinephric stranding. 4. Prior cholecystectomy. 5. Benign RIGHT lower lobe granuloma. Chest X-Ray 02/09/25 09:51 IMPRESSION: No acute pulmonary disease process. Laboratory Results WBC 9.08 10^3/uL (3.29-11.43) 02/09/25 07:50 RBC 4.83 10^6/uL (3.85-5.65) 02/09/25 07:50 Hgb 15.20 g/dL (11.27-16.99) 02/09/25 07:50 Hct 46.3 % (36-47) 02/09/25 07:50 MCV 95.9 fl (85-98) 02/09/25 07:50 MCH 31.5 pg (27-33) 02/09/25 07:50 MCHC 32.8 g/dL (30-55) 02/09/25 07:50 RDW 12.9 % (12.1-15.1) 02/09/25 07:50 Plt Count 302 10^3/cmm (157-399) 02/09/25 07:50 MPV 9.0 fL (7.4-10.4) 02/09/25 07:50 Neut % (Auto) 66.7 % 02/09/25 07:50 Lymph % (Auto) 15.2 % 02/09/25 07:50 [place] % (Auto) 9.9 % 02/09/25 07:50 Eos % (Auto) 7.2 % 02/09/25 07:50 Baso % (Auto) 0.7 % 02/09/25 07:50 Neut # (Auto) 6.06 10^3/uL (1.8-7.7) 02/09/25 07:50 Lymph # (Auto) 1.4 10^3/uL (0.8-4.8) 02/09/25 07:50 [place] # (Auto) 0.9 10^3/uL (0.2-0.9) 02/09/25 07:50 Eos # (Auto) 0.7 10^3/uL (0.0-0.8) 02/09/25 07:50 Baso # (Auto) 0.1 10^3/uL (0.0-0.1) 02/09/25 07:50 Nucleated RBC % (auto) 0 % 02/09/25 07:50 Nucleated RBCs # 0.0 /100WBC 02/09/25 07:50 Sodium 140 mmol/L (136-145) 02/09/25 07:50 Potassium 4.1 mmol/L (3.5-5.1) 02/09/25 07:50 Chloride 102 mmol/L (98-107) 02/09/25 07:50 Carbon Dioxide 27 mmol/L (22-29) 02/09/25 07:50 Anion Gap 15.1 (5-19) 02/09/25 07:50 BUN 15 mg/dL (8-23) 02/09/25 07:50 Creatinine 1.1 mg/dL (0.5-0.9) H 02/09/25 07:50 GFR Calculation Not Reportable 02/09/25 07:50 Glucose 120 mg/dL (65-115) H 02/09/25 07:50 Calculated Osmolality 292 mOsm/kg (285-295) 02/09/25 07:50 Calcium 10.2 mg/dL (8.5-10.5) 02/09/25 07:50 Total Bilirubin 0.7 mg/dL (0.15-1.2) 02/09/25 07:50 AST 21 U/L (0-32) 02/09/25 07:50 ALT 31 U/L (0-33) 02/09/25 07:50 Alkaline Phosphatase 126 U/L (35-105) H 02/09/25 07:50 Total Protein 8.2 g/dL (6.6-8.7) 02/09/25 07:50 Albumin 4.3 g/dL (3.5-5.2) 02/09/25 07:50 Globulin 3.9 g/dL (1.3-4.6) 02/09/25 07:50 Lipase 53 U/L (13-60) 02/09/25 07:50 Urine Color Dark yellow (Yellow) A 02/09/25 08:15 Urine Appearance Clear (CLEAR) 02/09/25 08:15 Urine pH 7.0 (5-7) 02/09/25 08:15 Ur Specific [place] 1.014 (1.005-1.030) 02/09/25 08:15 Urine Protein Negative (Negative) 02/09/25 08:15 Urine Glucose (UA) Negative (Normal) 02/09/25 08:15 Urine Ketones Negative (Negative) 02/09/25 08:15 Urine Blood Negative (Negative) 02/09/25 08:15 Urine Nitrate Negative (Negative) 02/09/25 08:15 Urine Bilirubin Negative (Negative) 02/09/25 08:15 Urine Urobilinogen 1.0 mg/dL (Negative) 02/09/25 08:15 Ur Leukocyte Esterase Negative (Negative) 02/09/25 08:15 Urine RBC 0-2 /hpf (0-2) 02/09/25 08:15 Urine WBC 0-5 /hpf (0-5) 02/09/25 08:15 Ur Squamous Epith Cells 0-5 /hpf (0-5) 02/09/25 08:15 Amorphous Sediment Not Reportable 02/09/25 08:15 Urine Bacteria None seen /hpf (NONE) 02/09/25 08:15 Hyaline Casts 1.65 /lpf 02/09/25 08:15 All radiology interpretation(s) finalized by discharge Discharge Plan Discharge Patient Disposition: Home Clinical Impression: Gastroenteritis Dementia Qualifiers: Dementia type: unspecified type Dementia severity: unspecified severity D ementia behavioral or psychological symptom: unspecified whether behavioral, psychotic, or mood disturbance or anxiety Qualified Code(s): F03.90 - Unspecified dementia, unspecified severity, without behavioral disturbance, psychotic disturbance, mood disturbance, and anxiety Condition: Stable Prescriptions: New lorazepam [Ativan] 0.5 mg tablet 0.5 mg PO Q6H PRN (Reason: nausea and vomiting) Qty: 10 0RF No Action (DME) assisted living admission See Rx Instructions .Route .MEDSUPPLY Qty: 1 0RF Rx Instructions: admit to assisted living; admit to [facility] spironolactone 25 mg tablet 25 mg PO DAILY Qty: 30 0RF (DME) Cam boot with Achilles lift to left See Rx Instructions .Route .MEDSUPPLY Qty: 1 0RF Rx Instructions: As directed (DME) CAM walker with Achilles wedge See Rx Instructions .Route .MEDSUPPLY Qty: 1 0RF Rx Instructions: As directed ondansetron 4 mg tablet,disintegrating 4 mg PO Q6H PRN (Reason: nausea and vomiting) Qty: 20 0RF Rx Instructions: 340b please nitrofurantoin macrocrystal 100 mg capsule 100 mg PO BID 7 Days Qty: 14 0RF Rx Instructions: must administer with a meal/food aspirin [Adult Low Dose Aspirin] 81 mg tablet,delayed release (DR/EC) 81 mg PO DAILY Qty: 90 0RF (DME) front wheeled walker See Rx Instructions .Route .MEDSUPPLY Qty: 1 0RF Rx Instructions: As directed melatonin 5 mg Tablet See Rx Instructions .ROUTE .COMPLEX Rx Instructions: Take 5mg by mouth every other night for sleep. Discharge Orders: Discharge ED (Routine); Ordered 02/09/25 Ordered By: Grady Blanchard Referrals: Poli Lara DO [Primary Care Provider, Family Practice] Discharge Diet: Usual diet Discharge Activity: Resume usual activity Patient Instructions: Opioid Safety, Pain Management Activity Restrictions/Additional Instructions: Thank you for choosing [facility] for your healthcare needs today. It is very important that you follow up as instructed or that you return to the Emergency Department should you have concerns or if your condition changes or worsens in any way. You were seen in the emergency room with complaints of nausea vomiting abdominal pain urine and CBC (white blood cell count and red blood cell counts) were normal. CT of your abdomen was normal there is no signs of infection. Some of your symptoms may be due to gastroenteritis I think there may also be some complicating factors with your dementia issues. Will discharge home with Ativan to use 1/2 mg every 6 hours as needed. Complete the course of antibiotics you are given for the bladder infection your urine today did not show any signs of persistent infection follow-up with your primary care doctor within the week. Print Language: Portuguese Coding Level of Care Code ED Sales And Service Technician for Jennifer Walton
[2025-02-09 07:59] LABS: Basophils # 0.1 10^3/uL (0.0-0.1); Basophils % 0.7 %; Eosinophils # 0.7 10^3/uL (0.0-0.8); Eosinophils % 7.2 %; Hematocrit 46.3 % (36-47); Lymphocytes # 1.4 10^3/uL (0.8-4.8); Lymphocytes % 15.2 %; Mean Corpuscular HGB Conc 32.8 g/dL (30-55); Mean Corpuscular Hemoglobin 31.5 pg (27-33); Mean Corpuscular Volume 95.9 fl (85-98); Monocytes # 0.9 10^3/uL (0.2-0.9); Monocytes % 9.9 %; Neutrophils # 6.06 10^3/uL (1.8-7.7); Neutrophils % 66.7 %; Nucleated Red Blood Cells % 0 %; Platelet Count 302 10^3/cmm (157-399); Red Blood Count 4.83 10^6/uL (3.85-5.65); Red Cell Distribution Width 12.9 % (12.1-15.1); White Blood Count 9.08 10^3/uL (3.29-11.43)
[2025-02-09 08:15] VITALS: RESP 18; O2SAT 97
--- NOTE | 2025-02-09 08:15 | CT_ITS ---
WS: [id number] CT ABDOMEN AND PELVIS WITH CONTRAST HISTORY: abd pain TECHNIQUE: Imaging performed of the abdomen and pelvis with IV contrast. Single phase imaging of the abdomen. Coronal and sagittal reformats are submitted. All CT scans at [facility] use at least one of these dose optimization techniques: automated exposure control; mA and/or kV adjustment per patient size (includes targeted exams where dose is matched to clinical indication); or iterative reconstruction. IV CONTRAST: Omnipaque 350; 100 mL IV. Oral contrast: No DLP: 863.37 mGy.cm COMPARISON: None available. Lower thorax: 18 mm nodule at the RIGHT lung base has been present on prior radiographs without increase in size. Heart is normal size. Small hiatal hernia. Liver/biliary system: Normal size liver. Focal area of arterial enhancement RIGHT lobe measuring 6 mm is probably a small hemangioma. Very slight central hepatobiliary dilatation. Gallbladder: Prior cholecystectomy. Pancreas: Normal size pancreas and pancreatic duct. No adjacent inflammation. Spleen: Normal size spleen. There are a few granulomata. There is a very tiny area of decreased attenuation in the superior spleen which may be a small cyst. Adrenal glands: Stable 15 mm RIGHT adrenal gland nodule since 2018. Very mild thickening of the LEFT adrenal gland. Right kidney: Normal. Left kidney: Normal. Aorta: Moderate atherosclerosis with no aneurysm. Lymphadenopathy: None. Free fluid: None. GI tract: No GI tract obstruction. No colitis. Prior appendectomy. No significant diverticular disease. Abdominal wall: Small umbilical hernia contains fat. Pelvis: No free fluid or adenopathy within the pelvis. Prior hysterectomy. There are a few small inguinal lymph nodes. Bones: Degenerative disc disease and vacuum disc phenomenon at L5-S1. Mild narrowing of the hip joints, RIGHT greater than LEFT. CT/CT abdomen pelvis w con* [id number] IMPRESSION: 1. No acute abdominal or pelvic abnormalities are identified. 2. No GI tract obstruction. 3. No renal obstruction or perinephric stranding. 4. Prior cholecystectomy. 5. Benign RIGHT lower lobe granuloma.
[2025-02-09 08:20] LABS: Alanine Aminotransferase 31 U/L (0-33); Albumin Level 4.3 g/dL (3.5-5.2); Alkaline Phosphatase 126 U/L (35-105); Anion Gap 15.1 (5-19); Aspartate Amino Transferase 21 U/L (0-32); Blood Urea Nitrogen 15 mg/dL (8-23); Calcium 10.2 mg/dL (8.5-10.5); Carbon Dioxide 27 mmol/L (22-29); Chloride 102 mmol/L (98-107); Creatinine Clr Calc Pharmacy 37.9479; Globulin 3.9 g/dL (1.3-4.6); Glucose 120 mg/dL (65-115); Lipase 53 U/L (13-60); Osmolality Calculated 292 mOsm/kg (285-295); Potassium 4.1 mmol/L (3.5-5.1); Sodium 140 mmol/L (136-145); Total Bilirubin 0.7 mg/dL (0.15-1.2); Total Protein 8.2 g/dL (6.6-8.7)
[2025-02-09 08:25] LABS: Bilirubin Urine Negative (Negative); Blood Urine Negative (Negative); Glucose Urine UA Negative (Normal); Ketones Urine Negative (Negative); Leukocyte Esterase Urine Negative (Negative); Nitrate Urine Negative (Negative); Protein Urine Negative (Negative); Specific Gravity, Urine 1.014 (1.005-1.030); Urine Appearance Clear (CLEAR); Urine Color Dark Yellow (Yellow)
[2025-02-09] MEDS: ondansetron 2 mg/ML SDV 2 mL 4 MG IVP (08:28)
[2025-02-09 08:30] LABS: Add Urine Microscopic? YES; Bacteria Urine None Seen /hpf; Hyaline Casts Urine 1.65 /lpf; RBC Urine 0-2 /hpf (0-2); Squamous Epithelial Cell Urine 0-5 /hpf (0-5); WBC Urine 0-5 /hpf (0-5)
[2025-02-09] MEDS: iohexol 350 mg/mL 500 mL Btl (per mL) IV (08:46)
[2025-02-09 09:10] VITALS: BP 147/86; O2SAT 98
[2025-02-09] MEDS: prochlorperazine 10 mg/2 mL Inj IVP (09:30)
--- NOTE | 2025-02-09 09:51 | XRR_ITS ---
PROCEDURE INFORMATION: Exam: XR Chest Exam date and time: 02/09/2025 10:11 AM Age: 84 years old Clinical indication: Other: Abdominal; Prior surgery; Surgery date: 6+ months; Surgery type: Appy, gb, hyst; Abd pain for several weeks TECHNIQUE: Imaging protocol: Radiologic exam of the chest. Views: 1 view. COMPARISON: CR XR chest 1V portable [id number] 04/11/2024 2:36 PM FINDINGS: Lungs: Calcified granuloma right lower lung field. Calcified nodular density left mid lung. Pleural spaces: Unremarkable. No pleural effusion. No pneumothorax. Heart/Mediastinum: Unremarkable. No cardiomegaly. Bones/joints: Unremarkable. XR/XR chest 1V portable [id number] IMPRESSION: No acute pulmonary disease process.
[2025-02-09 10:06] VITALS: O2SAT 97
[2025-02-09] MEDS: LORazepam 1 MG/0.5 ML injection 0.5 MG IVP (10:14)
[2025-02-09 11:30] VITALS: BP 146/71; PULSE 80; O2SAT 98
== END 2025-02-09 11:31 | disposition home or self-care (01) ==
PROVIDERS: Emergency Provider Family Medicine; PCP Family Medicine
DX: K52.9 Noninfective gastroenteritis and colitis, unspecified (principal); N39.0 Urinary tract infection, site not specified; F03.90 Unspecified dementia, unspecified severity, without behavioral disturbance, psychotic disturbance, mood disturbance, and anxiety; I10 Essential (primary) hypertension; Z79.899 Other long term (current) drug therapy; Z79.82 Long term (current) use of aspirin
CPT/HCPCS: 71045; 74177; 80053; 81001; 83690; 85025; 93005; 96374; 96375; 99285; J0780; J2060; J2405

== ENCOUNTER → 2025-04-28 13:39 | Outpatient (BNVA) | payer MEDICARE, SELFPAY | PROVIDERS: PCP Family Medicine; Visit Provider Podiatrist Foot & Ankle Surgery | DX: E11.8 Type 2 diabetes mellitus with unspecified complications (principal); B35.1 Tinea unguium; I73.9 Peripheral vascular disease, unspecified | CPT/HCPCS: 11721 ==

== ENCOUNTER → 2025-08-03 13:32 | Outpatient (BNVA) | payer MEDICARE, SELFPAY | PROVIDERS: PCP Family Medicine; Visit Provider Podiatrist Foot & Ankle Surgery | DX: I73.9 Peripheral vascular disease, unspecified (principal); B35.1 Tinea unguium | CPT/HCPCS: 11721 ==